=== PATIENT | female | born 1965 ===

== ENCOUNTER 2020-06-03 13:09 | Outpatient (REF) | payer MEDICAID, SELFPAY | END 2020-06-03 13:10 | disposition home or self-care (01) | LOC: HO.LAB 13:09 | PROVIDERS: Visit Provider Internal Medicine | DX: Z20.822 Contact with and (suspected) exposure to COVID-19 (principal) | CPT/HCPCS: 36415; C9803; U0003 ==

== ENCOUNTER 2020-06-09 21:12 | Emergency (ER) | payer MEDICAID, SELFPAY | END 2020-06-09 21:27 | disposition left against medical advice (07) | LOC: HO.ED 21:26 | PROVIDERS: Emergency Provider Emergency Medicine | DX: Z20.822 Contact with and (suspected) exposure to COVID-19 (principal) ==

== ENCOUNTER 2020-06-14 18:02 | Emergency (ER) | payer MEDICAID, SELFPAY ==
[2020-06-14 18:30] VITALS: BP 184/109; PULSE 75; RESP 18; TEMP 36.6; O2SAT 97; BMI 22.4
--- NOTE | 2020-06-14 19:55 | XR_ITS ---
EXAMINATION: XR CHEST CLINICAL INFORMATION: Chest pain COMPARISON: None TECHNIQUE: Frontal view of the chest was obtained. FINDINGS: The lungs are well-expanded and clear of acute pneumonic process. The heart size and pulmonary vascularity is normal. There is mild spondylosis of dorsal spine with mild dextroscoliosis. No lytic process seen XR/XR chest 1V IMPRESSION: Unremarkable chest exam.
--- NOTE | 2020-06-14 19:55 | ECG_ITS ---
Test Reason : CP Blood Pressure : / mmHG Vent. Rate : 073 BPM Atrial Rate : 073 BPM P-R Int : 154 ms QRS Dur : 078 ms QT Int : 394 ms P-R-T Axes : 048 005 031 degrees QTc Int : 434 ms Normal sinus rhythm Nonspecific T wave abnormality Abnormal ECG When compared with ECG of 07-MAY-2015 01:14, Nonspecific T wave abnormality now evident in Anterior leads Referred By: Generic ED Physician Electronically Signed By:Lenny Mcfarland
--- NOTE | 2020-06-14 20:05 | PC.NURSE ---
Addendum entered by Tiffanie Barriga 06/14/20 20:07: IV established by ZOE Zapata. Original Note: Pt sitting upright in bed, ambulating to the bathroom to provide urine sample. IV established, EKG, labs, urine obtained and sent. VSS. Awaiting primary MD trevino.
[2020-06-14 20:08] LABS: MANUAL DIFF FLAG NO
[2020-06-14 20:10] LABS: Basophils Percent Auto 0.3 % (0-2); Eosinophils Absolute Auto 0.3 X10*3/uL (0.0-0.4); Hematocrit 37.9 % (37-47); Hemoglobin 12.4 g/dl (12.0-16.0); Imm Gran Abs Auto 0.03 X10*3/uL (0.00-0.03); Imm Gran Pct Auto 0.2 % (0.0-0.4); Lymphocytes Absolute Auto 4.2 X10*3/uL (1.2-4.9); Mean Corpuscular HGB Conc 32.7 g/dl (31.0-35.0); Mean Corpuscular Hemoglobin 24.5 pg (27.0-33.0); Mean Corpuscular Volume 74.8 fL (80-98); Mean Platelet Volume 10.1 fL (9.4-12.3); Monocytes Percent Auto 7.3 % (2-11); Neutrophils Absolute Auto 8.4 X10*3/uL (2.0-8.3); Neutrophils Percent Auto 60.2 % (45-73); Platelet Count 404 X10*3/uL (160-400); Red Blood Count 5.07 X10*6/uL (4.20-5.50)
[2020-06-14 20:11] LABS: Glucose Urine UA >=1000 MG/DL (NEG); Leukocyte Esterase Urine NEG (NEG); Nitrite Urine NEG (NEG); Specific Gravity - Urine <= 1.005 (1.005-1.025); Urine Blood NEG (NEG); Urine Ketones NEG (NEG); Urine Protein NEG (NEG-TRACE)
[2020-06-14 20:12] LABS: Appearance Urine CLEAR; Color Urine STRAW
[2020-06-14 20:21] LABS: RBC Urine 0 /HPF (0); Squamous Epithelial Cell Urine TRACE /LPF; WBC Urine 0 /HPF (0-4)
--- NOTE | 2020-06-14 20:21 | PC.NURSE ---
at bedside, awaiting hematologist oncologist for primary eval.
--- NOTE | 2020-06-14 20:38 | ED_ITS ---
HPI - General Adult General Chief complaint: General Medical Stated complaint: ANXIETY Time Seen by Provider: 06/14/20 20:06 Source: patient Mode of arrival: ambulatory Limitations: language barrier (Patient speaks Ukrainian, educational interpreter used to obtain information) History of Present Illness HPI narrative: 54-year-old female who presents emergency department for evaluation of multiple complaints. The patient states that she saw her doctor approximately 1 week prior and was told that her glucose was slightly high and she was started on Jardiance. She states that shortly after taking her 1st dose she started to feel ill. She states that her whole body felt cold. She states that she broke out into sweats and then felt very hot. She developed intermittent chest pain in her left anterior chest which lasted seconds. She states that she has been getting this chest pain frequently but has difficulty characterizing how often she is getting the pain. She states she has had mild shortness of breath. She denied cough. She denied nausea, vomiting, diarrhea or body aches. She states that she has been tested for COVID-19 times with her in last negative test pain 06/03/2020. She is not aware of any primary exposures. Related Data Allergies Allergy/AdvReac Type Severity Reaction Status Date / Time diphenhydramine Allergy Unknown PALPATATION Unverified 02/06/20 15:54 [From BENADRYL] S Benadryl Allergy Unknown palpitation Uncoded 12/11/18 00:00 Review of Systems Review of Systems: Yes all other systems are reviewed and are negative Neurologic: Reports Abnormal speech present ON LICENSE OF [facility] Past Medical History ON LICENSE OF [facility] Narrative: The patient denies tobacco, alcohol or drug use. Medical History Diabetes HLD (hyperlipidemia) HTN (hypertension) Surgical History Hx of cholecystectomy Social History Social History Advance Directives: No Advance Directives Information Provided: No Physical Exam Vital Signs: Vital Signs: Last Vital Signs Temp 98.5 F 06/14/20: Pulse 71 06/14/20: Resp 18 06/14/20 21: BP 128/78 06/14/20 21:27 Pulse Ox 98 06/14/20 21:27 Body Mass Index 22.4 Const: General: cooperative and healthy appearing Orientation/consciousness: oriented to person and oriented to place Limitations: no limitations HENMT: Head: Yes normal to inspection, Yes normocephalic and Yes atraumatic Ears: external ears normal General nose exam: Normal external nose present Face and sinus: Yes normal facial exam Mouth: Normal oral and palatal mucosa present Throat: Yes posterior oropharynx normal Eyes: Periorbital: periorbital findings normal Eyelids: Yes eyelids normal Conjunctivae: conjunctivae normal Sclerae: sclerae normal Corneas: corneas normal Pupils: Equal, round and reactive pupils present Direct Ophthalmoscopy: normal light reflex Neck: Neck: Yes full ROM, Yes no lymphadenopathy, Yes no meningeal signs, Yes trachea midline and Yes supple Chest: Chest palpation & inspection: normal inspection of the chest and normal palpation of entire chest wall Resp: Effort & Inspection: normal respiratory effort and able to speak in complete sentences Auscultation: clear to auscultation bilaterally Cardio: Rate: regular rate Rhythm: regular rhythm Heart sounds: S1 normal heart sound present, S2 normal heart sound present and no murmurs GI: Inspection: Yes normal to inspection Palpation (GI): Soft to palpation, nontender, no guarding, not rigid and No hepatosplenomegaly present : General: Yes no CVA tenderness Back/Spine/Pelvis: Back: no CVA tenderness Cervical Spine: normal cervical lordosis Thoracic/Lumbar Spine: thoracic and lumbar spine normal to inspec tion Skin: Lesions: no lesions Rashes: no rashes Wounds: no wounds Neuro: General: oriented to person, oriented to place and no meningeal signs Cranial nerves: Yes Equal, round and reactive pupils present Cognition (Neuro): normal cognition Speech: Abnormal speech present Motor exam (neuro): 5/5 motor strength present throughout Extrem: General: Yes normal to inspection and Yes full ROM Psych: Appearance: well kempt Mental Status: mental status grossly normal Speech and movement: Normal speech and movement present Affect: normal affect Attitude: cooperative Thought process: Normal thought process present Thought content: Normal thought content present Course Course Course Narrative: 54-year-old female with a history of diabetes who was recently started on Jardiance 1 week prior and shortly after taking the medication this developed multiple symptoms including chest pain, sweats, feeling hot and cold, and mild shortness of breath. The patient's physical examination did reveal elevated blood pressure of 184/109 but otherwise was unremarkable. Patient's 12 EKG revealed no evidence for ischemia or cardiac injury, she did had nonspecific T[place]. [place] [address], elevated glucose of 184, slight elevation of the lipase is 88, positive for glucose of was unremarkable. The patient's COVID-19 was negative. At this time, I do not have a clear etiology for patient's symptoms. It is possible that she may have a viral illness versus adverse reaction to the Jardiance. I did discuss this with her told her that she should contact her PCP on Monday morning to discuss her symptoms and the possibility of discontinuing the Jardiance. Medical Decision Making Lab Data Result diagrams: 06/14/20 20:06/14/20 20:01 Labs: Lab Results 06/14/20 06/14/20 06/14/20 Range/Units 20:01 20:01 20:01 WBC 14.0 H (4.8-10.8) X10*3/uL RBC 5.07 (4.20-5.50) X10*6/uL Hgb 12.4 (12.0-16.0) g/dl Hct 37.9 (37-47) % MCV 74.8 L (80-98) fL MCH 24.5 L (27.0-33.0) pg MCHC 32.7 (31.0-35.0) g/dl RDW 14.0 (11.0-16.0) % Plt Count 404 H (160-400) X10*3/uL MPV 10.1 (9.4-12.3) fL Immature Gran % (Auto) 0.2 (0.0-0.4) % Neut % (Auto) 60.2 (45-73) % Lymph % (Auto) 30.0 (20-40) % [place] % (Auto) 7.3 (2-11) % Eos % (Auto) 2.0 (0-4) % Baso % (Auto) 0.3 (0-2) % Lymph # (Auto) 4.2 (1.2-4.9) X10*3/uL [place] # (Auto) 1.0 (0.1-1.2) X10*3/uL Eos # (Auto) 0.3 (0.0-0.4) X10*3/uL Baso # (Auto) 0.0 (0.0-0.2) X10*3/uL Abs Immat Gran (auto) 0.03 (0.00-0.03) X10*3/uL Absolute Neuts (auto) 8.4 H (2.0-8.3) X10*3/uL Absolute Nucleated RBC 0.000 (0.0-0.012) X10*3/uL Nucleated RBC % (auto) 0.0 (0.0-0.2) /100WBC Hold Blue Top SEE NOTE Sodium 139 (135-145) mmol/L Potassium 3.7 (3.3-5.1) mmol/l Chloride 99 (96-108) mmol/L Carbon Dioxide 30 H (22-29) mmol/L Anion Gap 14 (12-20) BUN 13 (9-16) mg/dL Creatinine 0.77 (0.5-1.4) mg/dL Estim Creat Clear Calc 71.2 Estimated GFR > 60 POC Glucose (60-115) mg/dL Random Glucose 184 H (60-115) mg/dL Calcium 10.0 (8.4-10.2) mg/dL Total Bilirubin 0.3 (0.0-1.0) mg/dL Direct Bilirubin < 0.2 (0.0-0.5) mg/dL AST 15 (5-31) U/L ALT 13 (0-31) U/L Alkaline Phosphatase 88 (39-117) U/L Troponin I High Sens (<3.5-17.0) ng/L Total Protein 7.3 (6.5-8.0) g/dL Albumin 4.3 (3.5-5.0) g/dL Lipase 88 H (8-78) U/L Urine Color Urine Appearance Urine pH (5.0-8.0) Ur Specific [place] (1.005-1.025) Urine Protein (NEG-TRACE) MG/DL Urine Glucose (UA) (NEG) MG/DL Urine Ketones (NEG) MG/DL Urine Blood (NEG) Urine Nitrite (NEG) Ur Leukocyte Esterase (NEG) Urine RBC (0) /HPF Urine WBC (0-4) /HPF Ur Squamous Epith Cells /LPF Urine Bacteria /LPF COVID-19 ([facility]) (Negative) COVID-19 Clin Com 06/14/20 06/14/20 06/14/20 Range/Units 20:01 20:01 21:18 WBC (4.8-10.8) X10*3/uL RBC (4.20-5.50) X10*6/uL Hgb (12.0-16.0) g/dl Hct (37-47) % MCV (80-98) fL MCH (27.0-33.0) pg MCHC (31.0-35.0) g/dl RDW (11.0-16.0) % Plt Count (160-400) X10*3/uL MPV (9.4-12.3) fL Immature Gran % (Auto) (0.0-0.4) % Neut % (Auto) (45-73) % Lymph % (Auto) (20-40) % [place] % (Auto) (2-11) % Eos % (Auto) (0-4) % Baso % (Auto) (0-2) % Lymph # (Auto) (1.2-4.9) X10*3/uL [place] # (Auto) (0.1-1.2) X10*3/uL Eos # (Auto) (0.0-0.4) X10*3/uL Baso # (Auto) (0.0-0.2) X10*3/uL Abs Immat Gran (auto) (0.00-0.03) X10*3/uL Absolute Neuts (auto) (2.0-8.3) X10*3/uL Absolute Nucleated RBC (0.0-0.012) X10*3/uL Nucleated RBC % (auto) (0.0-0.2) /100WBC Hold Blue Top Sodium (135-145) mmol/L Potassium (3.3-5.1) mmol/l Chloride (96-108) mmol/L Carbon Dioxide (22-29) mmol/L Anion Gap (12-20) BUN (9-16) mg/dL Creatinine (0.5-1.4) mg/dL Estim Creat Clear Calc Estimated GFR POC Glucose (60-115) mg/dL Random Glucose (60-115) mg/dL Calcium (8.4-10.2) mg/dL Total Bilirubin (0.0-1.0) mg/dL Direct Bilirubin (0.0-0.5) mg/dL AST (5-31) U/L ALT (0-31) U/L Alkaline Phosphatase (39-117) U/L Troponin I High Sens < 3.5 (<3.5-17.0) ng/L Total Protein (6.5-8.0) g/dL Albumin (3.5-5.0) g/dL Lipase (8-78) U/L Urine Color STRAW Urine Appearance CLEAR Urine pH 6.0 (5.0-8.0) Ur Specific [place] <= 1.005 (1.005-1.025) Urine Protein NEG (NEG-TRACE) MG/DL Urine Glucose (UA) >=1000 H (NEG) MG/DL Urine Ketones NEG (NEG) MG/DL Urine Blood NEG (NEG) Urine Nitrite NEG (NEG) Ur Leukocyte Esterase NEG (NEG) Urine RBC 0 (0) /HPF Urine WBC 0 (0-4) /HPF Ur Squamous Epith Cells TRACE /LPF Urine Bacteria NONE /LPF COVID-19 ([facility]) Negative (Negative) COVID-19 Clin Com See Note 06/14/20 Range/Units 21:30 WBC (4.8-10.8) X10*3/uL RBC (4.20-5.50) X10*6/uL Hgb (12.0-16.0) g/dl Hct (37-47) % MCV (80-98) fL MCH (27.0-33.0) pg MCHC (31.0-35.0) g/dl RDW (11.0-16.0) % Plt Count (160-400) X10*3/uL MPV (9.4-12.3) fL Immature Gran % (Auto) (0.0-0.4) % Neut % (Auto) (45-73) % Lymph % (Auto) (20-40) % [place] % (Auto) (2-11) % Eos % (Auto) (0-4) % Baso % (Auto) (0-2) % Lymph # (Auto) (1.2-4.9) X10*3/uL [place] # (Auto) (0.1-1.2) X10*3/uL Eos # (Auto) (0.0-0.4) X10*3/uL Baso # (Auto) (0.0-0.2) X10*3/uL Abs Immat Gran (auto) (0.00-0.03) X10*3/uL Absolute Neuts (auto) (2.0-8.3) X10*3/uL Absolute Nucleated RBC (0.0-0.012) X10*3/uL Nucleated RBC % (auto) (0.0-0.2) /100WBC Hold Blue Top Sodium (135-145) mmol/L Potassium (3.3-5.1) mmol/l Chloride (96-108) mmol/L Carbon Dioxide (22-29) mmol/L Anion Gap (12-20) BUN (9-16) mg/dL Creatinine (0.5-1.4) mg/dL Estim Creat Clear Calc Estimated GFR POC Glucose 160 H (60-115) mg/dL Random Glucose (60-115) mg/dL Calcium (8.4-10.2) mg/dL Total Bilirubin (0.0-1.0) mg/dL Direct Bilirubin (0.0-0.5) mg/dL AST (5-31) U/L ALT (0-31) U/L Alkaline Phosphatase (39-117) U/L Troponin I High Sens (<3.5-17.0) ng/L Total Protein (6.5-8.0) g/dL Albumin (3.5-5.0) g/dL Lipase (8-78) U/L Urine Color Urine Appearance Urine pH (5.0-8.0) Ur Specific [place] (1.005-1.025) Urine Protein (NEG-TRACE) MG/DL Urine Glucose (UA) (NEG) MG/DL Urine Ketones (NEG) MG/DL Urine Blood (NEG) Urine Nitrite (NEG) Ur Leukocyte Esterase (NEG) Urine RBC (0) /HPF Urine WBC (0-4) /HPF Ur Squamous Epith Cells /LPF Urine Bacteria /LPF COVID-19 ([facility]) (Negative) COVID-19 Clin Com ECG Data Attestation: I personally reviewed and interpreted this ECG as follows: Interpretation: 1957: Normal sinus rhythm with a rate of 73, normal OK, QRS and QTC intervals, nonspecific flattened T-waves, no ST segment elevation, no ST segment depression, no old EKG for comparison. This is an abnormal EKG. Discharge Plan Discharge Clinical Impression: Abnormal flushing and sweating Chest pain Qualifiers: Chest pain type: unspecified Qualified Code(s): R07.9 - Chest pain, unspecified Patient Disposition: Home, Self-Care Instructions: Chest Pain (ED) Additional Instructions: Your laboratory evaluation was unremarkable. EKG was unremarkable. Your COVID-19 test was negative. At this time, I do not have a clear cause for your symptoms. It is possible that he may have a viral infection. It is also possible that your symptoms may be caused by the new medication, Jardiance therefore you should stop this medication and discussed alternative medications with your doctor. Take ibuprofen 200 mg pills, 2 pills every 6 hours as needed for pain or fever. Take Tylenol (acetaminophen) 500 mg pills, 2 pills every 4 to 6 hours as needed for pain or fever. Follow-up with your doctor in 2 days. Please return to the emergency department if your symptoms get worse or if you develop any symptoms that are concerning to you.
[2020-06-14 20:47] LABS: Alanine Aminotransferase 13 U/L (0-31); Albumin Level 4.3 g/dL (3.5-5.0); Alkaline Phosphatase 88 U/L (39-117); Anion Gap 14 (12-20); Aspartate Amino Transferase 15 U/L (5-31); Bilirubin Direct < 0.2 mg/dL (0.0-0.5); Bilirubin Total 0.3 mg/dL (0.0-1.0); Blood Urea Nitrogen 13 mg/dL (9-16); Carbon Dioxide 30 mmol/L (22-29); Chloride 99 mmol/L (96-108); Creatinine Clr Calc Pharmacy 71.2; Estimated Glomerular Filt Rate > 60; Glucose Random 184 mg/dL (60-115); Potassium 3.7 mmol/l (3.3-5.1); Sodium 139 mmol/L (135-145); Total Protein 7.3 g/dL (6.5-8.0)
[2020-06-14 20:51] LABS: Troponin-I High Sensitivity < 3.5 ng/L (<3.5-17.0)
[2020-06-14 21:06] LABS: Lipase 88 U/L (8-78)
--- NOTE | 2020-06-14 21:19 | PC.NURSE ---
Covid swab obtained and sent. Pt holding a container of pills, this RN contacting iv technician for assistance, unknown if meds are PM meds. Awaiting iv technician.
[2020-06-14 21:27] VITALS: BP 128/78; PULSE 71; RESP 18; TEMP 36.9; O2SAT 98
[2020-06-14 21:33] LABS: Glucose, Whole Blood 160 mg/dL (60-115)
--- NOTE | 2020-06-14 21:36 | PC.NURSE ---
Pt states that her medications are for her diabetes. POC 160 mg/dl. MD aware, per MD, okay to take medications. Plan to DC home once Covid results are back.
[2020-06-14 21:43] LABS: COVID-19 Test Negative (Negative); IDNOW Serial# 9DD0AD1C
--- NOTE | 2020-06-14 22:08 | PC.NURSE ---
MD at bedside with brand protection manager discussing results and plan to DC home.
== END 2020-06-14 22:46 | disposition home or self-care (01) ==
PROVIDERS: Emergency Provider Emergency Medicine Emergency Medical Services
DX: F41.1 Generalized anxiety disorder (principal); R07.9 Chest pain, unspecified; Z20.822 Contact with and (suspected) exposure to COVID-19
CPT/HCPCS: 36415; 71045; 80048; 80076; 81001; 82947; 83690; 84484; 85025; 87635; 93005; 99283; 99284

== ENCOUNTER 2020-07-22 10:43 | Outpatient (REF) | payer MEDICAID, SELFPAY ==
--- NOTE | ~2020-07-22 | MM_ITS ---
EXAMINATION: MM DIAGNOSTIC DIGITAL BREAST TOMOSYNTHESIS, BILATERAL US DIAGNOSTIC ULTRASOUND BREAST, LEFT CLINICAL INFORMATION: At time of screening mammography, patient complains of significant left breast pain for maxilla along lateral to inferior breasts. No focal palpable mass. No discharge. Family history breast cancer, paternal aunt. The lifetime risk of breast cancer based on the Tyrer-Cuzick Model is 9%. COMPARISON: Mammography: 12/31/2018, 12/29/2017, 08/18/2016, 06/27/2015 TECHNIQUE: Digital breast tomosynthesis is performed in both the craniocaudal and mediolateral oblique views along with computer-aided detection (CAD). Synthesized 2D images are generated from the tomosynthesis. Additional left CC and MLO views are obtained with BB placed over nodule noted on ultrasound. Ultrasound left breast is targeted to the areas of clinical concern upper outer and lower outer breast. Grayscale imaging and color Doppler are performed without and with harmonics. FINDINGS: The breasts are heterogeneously dense, which may obscure small masses (ACR BI-RADS breast composition Category c). There is fibronodular parenchymal pattern similar to prior studies with variable nodularity. Dominant circumscribed nodule mid upper outer left breast is stable from prior exams measuring under 1.5 cm. There is no developing density. No architectural abnormality. No abnormal calcifications. The axilla and skin contours are unremarkable. There is no skin thickening or coarsening of the Shaun's ligaments. Ultrasound left breast demonstrates no skin thickening or edema tracking in soft tissue planes. There is no abscess or focal duct ectasia. There is a oval solid mass upper outer quadrant corresponding to the chronic nodule on mammography measuring approximately 1.4 x 0.7 cm. Given the chronicity, this is considered benign, likely fibroadenoma. Results are discussed with the patient at time of visit, using an structural iron erector. MM/MM tomosynthesis diagnostic BI IMPRESSION: 1. No mammographic evidence of malignancy or focal inflammatory changes. 2. Chronic nodule upper outer left breast just under 1.5 cm similar to prior exams, considered benign, possibly fibroadenoma on ultrasound. ASSESSMENT: BI-RADS 2: Benign RECOMMENDATION: 1. Patient's left breast pain should be managed based on the clinical impression. 2. Otherwise, routine annual screening mammography. This patient's information was entered into a reminder system with a target due date for their next mammogram.
== END 2020-07-22 10:44 | disposition home or self-care (01) ==
LOC: HO.MAMMO 10:43
PROVIDERS: PCP Internal Medicine Geriatric Medicine; Visit Provider Internal Medicine Geriatric Medicine
DX: N64.4 Mastodynia (principal); Z80.3 Family history of malignant neoplasm of breast
CPT/HCPCS: 76642; 77062; 77066

== ENCOUNTER 2020-08-31 10:06 | Outpatient (REF) | payer MEDICAID, SELFPAY ==
[2020-08-31 10:56] LABS: COVID-19 Test Negative (Negative)
== END 2020-08-31 10:07 | disposition home or self-care (01) ==
LOC: HO.LAB 10:06
PROVIDERS: Visit Provider Internal Medicine
DX: Z20.822 Contact with and (suspected) exposure to COVID-19 (principal)
CPT/HCPCS: 36415; 87635; C9803

== ENCOUNTER 2020-11-04 15:43 | Outpatient (REF) | payer MEDICAID, SELFPAY ==
--- NOTE | ~2020-11-04 | CT_ITS ---
EXAMINATION: CT HEAD WITHOUT CONTRAST CLINICAL INFORMATION: Anesthesia of the skin COMPARISON: None TECHNIQUE: Contiguous axial imaging was performed from the skull base to vertex without intravenous administration of contrast. This CT examination was performed using dose optimization techniques as appropriate, variously including the following: *Automated exposure control *Adjustment of mA and/or kV according to patient size (this includes techniques or standardized protocols for targeted exams where dose is matched to indication/reason for exam; i.e. extremities or head) *Use of iterative reconstruction technique DLP: 640 mGy-cm FINDINGS: There is no evidence of acute intracranial hemorrhage or territorial infarction. No abnormal mass effect or midline shift is seen. Hdez to white matter differentiation is well preserved. No extra-axial fluid collections are identified. The ventricles are normal in size. There is no abnormal attenuation within the brain parenchyma. The osseous structures and soft tissues are normal. The mastoid air cells and visualized portions of the paranasal sinuses are well aerated. CT/CT head/brain wo con IMPRESSION: No acute intracranial process seen.
== END 2020-11-04 15:44 | disposition home or self-care (01) ==
LOC: HO.CT 15:43
PROVIDERS: Visit Provider Internal Medicine Geriatric Medicine
DX: R20.0 Anesthesia of skin (principal); R20.2 Paresthesia of skin
CPT/HCPCS: 70450

== ENCOUNTER 2020-11-20 12:01 | Emergency (ER) | payer MEDICAID, SELFPAY ==
--- NOTE | 2020-11-20 | ECG_ITS ---
Test Reason : CP Blood Pressure : / mmHG Vent. Rate : 072 BPM Atrial Rate : 072 BPM P-R Int : 144 ms QRS Dur : 078 ms QT Int : 402 ms P-R-T Axes : 043 002 054 degrees QTc Int : 440 ms Normal sinus rhythm Normal ECG When compared with ECG of 14-JUN-2020 19:58, Nonspecific T wave abnormality no longer evident in Anterior leads Referred By: Generic ED Physician Electronically Signed By:GALLITO RODRÍGUEZ MD
[2020-11-20 12:13] VITALS: BP 173/69; PULSE 74; RESP 18; TEMP 36.2; O2SAT 98; BMI 24.5
[2020-11-20 13:19] LABS: MANUAL DIFF FLAG NO
[2020-11-20 13:21] LABS: Basophils Absolute Auto 0.1 X10*3/uL (0.0-0.2); Basophils Percent Auto 0.4 % (0-2); Eosinophils Absolute Auto 0.3 X10*3/uL (0.0-0.4); Eosinophils Percent Auto 2.4 % (0-4); Hematocrit 36.8 % (37-47); Imm Gran Abs Auto 0.03 X10*3/uL (0.00-0.03); Imm Gran Pct Auto 0.3 % (0.0-0.4); Lymphocytes Absolute Auto 2.4 X10*3/uL (1.2-4.9); Lymphocytes Percent Auto 20.6 % (20-40); Mean Corpuscular HGB Conc 32.6 g/dl (31.0-35.0); Mean Corpuscular Hemoglobin 24.5 pg (27.0-33.0); Mean Corpuscular Volume 75.1 fL (80-98); Mean Platelet Volume 9.4 fL (9.4-12.3); Monocytes Absolute Auto 0.7 X10*3/uL (0.1-1.2); Monocytes Percent Auto 6.1 % (2-11); Neutrophils Absolute Auto 8.3 X10*3/uL (2.0-8.3); Neutrophils Percent Auto 70.2 % (45-73); Platelet Count 418 X10*3/uL (160-400); Red Cell Distribution Width 13.7 % (11.0-16.0); White Blood Count 11.9 X10*3/uL (4.8-10.8)
--- NOTE | 2020-11-20 13:41 | ED.CHESTPAIN ---
HPI - Chest Pain General Chief Complaint: Chest Pain Stated Complaint: chest pain & tenderness, hbp Time Seen by Provider: 11/20/20 13:23 Source: patient Mode of arrival: ambulatory Limitations: no limitations History of Present Illness HPI narrative: 54 y/o female with history of HTN, DM who presents to the ER with elevated blood pressure and left sided chest pain that started this morning. She reports compliance with her home lisinopril 5 mg that she has been on for a very long time. Her blood pressure is usually in the 130-140 range per her report. She checked it this morning and it was elevated. She had some left sided and central chest pain and tenderness so she came to the ER for evaluation. She denies headache, vision changes. Chest pain does not radiate and it is worse with palpation of her chest wall. She also c/o acute on chronic neck pain. No SOB, difficulty breathing, diaphoresis or vomiting. On arrival BP 173/69. MD complaint: chest pain Onset (ago): hour(s) (8) Timing of current episode: constant Prior episodes: Yes Onset: during rest Pain location: left chest Pain radiation: none Severity: mild Pain scale (0-10): 4 Quality: aching Relieving factors: rest Exacerbating factors: palpation and movement Treatment prior to arrival: none Risk Factors Coronary artery disease risk factors: diabetes, hyperlipidemia and hypertension Thoracic aortic dissection risk factors: none Related Data On Oral Contraceptives: No Allergies Allergy/AdvReac Type Severity Reaction Status Date / Time diphenhydramine Allergy Unknown PALPATATION Unverified 02/06/20 15:54 [From BENADRYL] S Benadryl Allergy Unknown palpitation Uncoded 12/11/18 00:00 Review of Systems Review of Systems: Constitutional: No Fever, No Chills ENT/Mouth: No sore throat, No Rhinorrhea, No Swallowing Difficulty Eyes: No Eye Pain, No Swelling, No Redness Cardiovascular: + Chest Pain, No SOB, No Orthopnea, No Edema Respiratory: No Cough, No Sputum, No Wheezing, No dyspnea Gastrointestinal: No Nausea, No Vomiting, No Diarrhea, No abdominal Pain Genitourinary: No Dysuria, No Urinary Frequency, No Hematuria Musculoskeletal: + joint pain, + Myalgias Skin: No Skin Lesions, No rash Neuro: No Weakness, No Numbness, No Dizziness, No Headache Psych: + Anxiety/Panic, No Depression Heme/Lymph: No Bruising, No Lymphadenopathy Endocrine: No Polyuria, No Polydipsia PMFSH Past Medical History Medical History Diabetes HLD (hyperlipidemia) HTN (hypertension) Surgical History Hx of cholecystectomy Social History Social History Advance Directives: No Advance Directives Information Provided: No Physical Exam Vital Signs: Vital Signs: Last Vital Signs Temp 98.0 F 11/20/20 14:29 Pulse 68 11/20/20 14:29 Resp 16 11/20/20 14:29 BP 139/92 H 11/20/20 14:29 Pulse Ox 98 11/20/20 14:29 Body Mass Index 24.5 Appearance: Alert. Oriented X3. No acute distress. Eyes: Pupils equal, round and reactive to light. ENT: Pharynx normal. Neck: Normal inspection. Neck supple. CVS: Normal heart rate and rhythm. Pulses normal. Respiratory: No respiratory distress. Breath sounds normal. Left sided chest wall with tenderness, no deformity, no skin changes Abdomen: Soft and nontender. +BS x4 Skin: Skin warm and dry. Normal skin color. Normal skin turgor. No rashes. Extremities: No lower extremity edema. Neuro: Oriented X 3. No motor deficit. No sensory deficit. Course Course Course Narrative: 54 y/o female presenting with hypertension and left sided chest pain that started earlier this morning. Pain is reproducible on exam however she does have risk factors for CAD including HTN, HLD and DM. Will get EKG, troponin and reassess. Patient was reassured in the ER and her BP improved to the 140s systolic without intervention. Reevaluation(s) Reevaluation #1: Labs are unremarkable, including negative troponin. EKG is normal. BP currently 139/92. No meds provided. Hypertension and chest pain most likely related to anxiety. MDM - Chest Pain Medical Records Data Attestation: I reviewed the patient's medical records. Lab Data Attestation: I reviewed the patient's lab results. Result diagrams: 11/20/20 13:11 11/20/20 13:11 Labs: Lab Results 11/20/20 11/20/20 11/20/20 Range/Units 13:11 13:11 13:12 WBC 11.9 H (4.8-10.8) X10*3/uL RBC 4.90 (4.20-5.50) X10*6/uL Hgb 12.0 (12.0-16.0) g/dl Hct 36.8 L (37-47) % MCV 75.1 L (80-98) fL MCH 24.5 L (27.0-33.0) pg MCHC 32.6 (31.0-35.0) g/dl RDW 13.7 (11.0-16.0) % Plt Count 418 H (160-400) X10*3/uL MPV 9.4 (9.4-12.3) fL Immature Gran % (Auto) 0.3 (0.0-0.4) % Neut % (Auto) 70.2 (45-73) % Lymph % (Auto) 20.6 (20-40) % [place] % (Auto) 6.1 (2-11) % Eos % (Auto) 2.4 (0-4) % Baso % (Auto) 0.4 (0-2) % Lymph # (Auto) 2.4 (1.2-4.9) X10*3/uL [place] # (Auto) 0.7 (0.1-1.2) X10*3/uL Eos # (Auto) 0.3 (0.0-0.4) X10*3/uL Baso # (Auto) 0.1 (0.0-0.2) X10*3/uL Abs Immat Gran (auto) 0.03 (0.00-0.03) X10*3/uL Absolute Neuts (auto) 8.3 (2.0-8.3) X10*3/uL Absolute Nucleated RBC 0.000 (0.0-0.012) X10*3/uL Nucleated RBC % (auto) 0.0 (0.0-0.2) /100WBC Sodium 142 (135-145) mmol/L Potassium 3.8 (3.3-5.1) mmol/L Chloride 105 (96-108) mmol/L Carbon Dioxide 26 (22-29) mmol/L Anion Gap 15 (12-20) BUN 9 (9-16) mg/dL Creatinine 0.77 (0.5-1.4) mg/dL Estim Creat Clear Calc 70.8 Estimated GFR > 60 Random Glucose 134 H (60-115) mg/dL Calcium 10.7 H D (8.4-10.2) mg/dL Troponin I High Sens < 3.5 (<3.5-17.0) ng/L Urine Color Urine Appearance Urine pH (5.0-8.0) Ur Specific [place] (1.005-1.025) Urine Protein (NEG-TRACE) MG/DL Urine Glucose (UA) (NEG) MG/DL Urine Ketones (NEG) MG/DL Urine Blood (NEG) Urine Nitrite (NEG) Ur Leukocyte Esterase (NEG) 11/20/20 Range/Units 14:14 WBC (4.8-10.8) X10*3/uL RBC (4.20-5.50) X10*6/uL Hgb (12.0-16.0) g/dl Hct (37-47) % MCV (80-98) fL MCH (27.0-33.0) pg MCHC (31.0-35.0) g/dl RDW (11.0-16.0) % Plt Count (160-400) X10*3/uL MPV (9.4-12.3) fL Immature Gran % (Auto) (0.0-0.4) % Neut % (Auto) (45-73) % Lymph % (Auto) (20-40) % [place] % (Auto) (2-11) % Eos % (Auto) (0-4) % Baso % (Auto) (0-2) % Lymph # (Auto) (1.2-4.9) X10*3/uL [place] # (Auto) (0.1-1.2) X10*3/uL Eos # (Auto) (0.0-0.4) X10*3/uL Baso # (Auto) (0.0-0.2) X10*3/uL Abs Immat Gran (auto) (0.00-0.03) X10*3/uL Absolute Neuts (auto) (2.0-8.3) X10*3/uL Absolute Nucleated RBC (0.0-0.012) X10*3/uL Nucleated RBC % (auto) (0.0-0.2) /100WBC Sodium (135-145) mmol/L Potassium (3.3-5.1) mmol/L Chloride (96-108) mmol/L Carbon Dioxide (22-29) mmol/L Anion Gap (12-20) BUN (9-16) mg/dL Creatinine (0.5-1.4) mg/dL Estim Creat Clear Calc Estimated GFR Random Glucose (60-115) mg/dL Calcium (8.4-10.2) mg/dL Troponin I High Sens (<3.5-17.0) ng/L Urine Color STRAW Urine Appearance HAZY Urine pH 6.5 (5.0-8.0) Ur Specific [place] <= 1.005 (1.005-1.025) Urine Protein NEG (NEG-TRACE) MG/DL Urine Glucose (UA) NEG (NEG) MG/DL Urine Ketones NEG (NEG) MG/DL Urine Blood NEG (NEG) Urine Nitrite NEG (NEG) Ur Leukocyte Esterase NEG (NEG) ECG Data ECG #1: Attestation: I personally reviewed and interpreted this ECG as follows: ECG interpretation date: 11/20/20 ECG interpretation time: 13:40 Prior ECG tracings: available for review Interpretation: normal sinus rhythm, HR 72 bpm, MD interval is normal, normal QTc, no ST segment elevations or depressions. Critical Care Time Critical Care Time Critical Care Time: No Discharge Plan Discharge Clinical Impression: Hypertension Qualifiers: Hypertension type: unspecified Qualified Code(s): I10 - Essential (primary) hypertension Patient Disposition: Home, Self-Care Instructions: DASH Eating Plan (ED), Hypertension and Diabetes (ED) Additional Instructions: Your lab workup and EKG today were normal. Recommend following up with your doctor next week. Continue monitoring your blood pressure once or twice per day and keeping a record for your doctor. They may want to increase your Lisinopril if the trend is elevated however there is no emergent need to do this right now If you develop new or worsening symptoms call 911 or come back to the ER for further evaluation. Ling an?lisis de laboratorio y ling electrocardiograma de hoy fueron normales. Recomiende hacer un seguimiento con ling m?dico la pr?xima semana. Contin?e controlando ling presi?n arterial jeannette o dos veces al d?a y lleve un registro para ling m?dico. Es posible que quieran aumentar ling lisinopril si la tendencia es elevada, sin embargo, no existe jeannette necesidad emergente de hacerlo ahora mismo. Si presenta s?ntomas nuevos o que empeoran, llame al 911 o regrese a la ciara de emergencias para jeannette evaluaci?n adicional. Referrals: Name,MD Weston [Primary Care Provider] - 3 days (follow up blood pressure)
[2020-11-20 13:51] LABS: Troponin-I High Sensitivity < 3.5 ng/L (<3.5-17.0)
[2020-11-20 13:54] LABS: Anion Gap 15 (12-20); Blood Urea Nitrogen 9 mg/dL (9-16); Carbon Dioxide 26 mmol/L (22-29); Chloride 105 mmol/L (96-108); Creatinine Clr Calc Pharmacy 70.8; Estimated Glomerular Filt Rate > 60; Glucose Random 134 mg/dL (60-115); Potassium 3.8 mmol/L (3.3-5.1); Sodium 142 mmol/L (135-145)
[2020-11-20 14:00] VITALS: BP 149/73; PULSE 72; RESP 16; O2SAT 99
[2020-11-20 14:02] LABS: Calcium 10.7 mg/dL (8.4-10.2)
[2020-11-20 14:25] LABS: Glucose Urine UA NEG (NEG); Leukocyte Esterase Urine NEG (NEG); Nitrite Urine NEG (NEG); PH 6.5 (5.0-8.0); Specific Gravity - Urine <= 1.005 (1.005-1.025); Urine Blood NEG (NEG); Urine Ketones NEG (NEG); Urine Protein NEG (NEG-TRACE)
[2020-11-20 14:27] LABS: Appearance Urine HAZY; Color Urine STRAW
[2020-11-20 14:29] VITALS: BP 139/92; PULSE 68; RESP 16; TEMP 36.7; O2SAT 98
[2020-11-20 14:35] LABS: Glucose, Whole Blood 90 mg/dL (60-115)
[2020-11-20 14:36] LABS: RBC Urine 0 /HPF (0); WBC Urine 0 /HPF (0-4)
== END 2020-11-20 14:55 | disposition home or self-care (01) ==
PROVIDERS: Physician Assistant; Emergency Provider Emergency Medicine Emergency Medical Services; PCP Internal Medicine Geriatric Medicine
DX: I10 Essential (primary) hypertension (principal); E11.9 Type 2 diabetes mellitus without complications; Z79.899 Other long term (current) drug therapy
CPT/HCPCS: 36415; 80048; 81001; 82947; 84484; 85025; 93005; 99284

== ENCOUNTER 2020-12-01 15:07 | Outpatient (REF) | payer MEDICAID, SELFPAY ==
[2020-12-02 14:05] LABS: CT PCR NOT DETECTED (Not Detect.); NG PCR NOT DETECTED (Not Detect.)
[2020-12-03 08:50] LABS: BV Int Neg Control Negative (Negative); BV Int Pos Control Positive (Positive)
== END 2020-12-01 15:08 | disposition home or self-care (01) ==
LOC: HO.LAB 15:07
PROVIDERS: PCP Internal Medicine Geriatric Medicine; Visit Provider Advanced Practice Midwife
DX: Z01.411 Encounter for gynecological examination (general) (routine) with abnormal findings (principal); Z11.3 Encounter for screening for infections with a predominantly sexual mode of transmission; N95.2 Postmenopausal atrophic vaginitis; N84.1 Polyp of cervix uteri; Z20.2 Contact with and (suspected) exposure to infections with a predominantly sexual mode of transmission
CPT/HCPCS: 87480; 87491; 87510; 87591; 87660; 99212

== ENCOUNTER 2020-12-02 11:25 | Outpatient (REF) | payer MEDICAID, SELFPAY | END 2020-12-02 11:26 | disposition home or self-care (01) | LOC: HO.LNP 11:25 | PROVIDERS: Visit Provider Advanced Practice Midwife | DX: Z13.89 Encounter for screening for other disorder (principal) ==

== ENCOUNTER → 2020-12-28 09:34 | Outpatient (REF) | payer MEDICAID, SELFPAY ==
--- NOTE | ~2020-12-28 | NM_ITS ---
EXERCISE MYOCARDIAL PERFUSION STUDY INDICATION: Chest pain, shortness of breath, assess for coronary disease and ischemia TECHNIQUE: The patient was brought in for an exercise perfusion study on 12/28/2020. Patient performed exercise as per Arsh protocol and was injected 25 mCi of sestamibi once target heart rate was achieved. Images were obtained using the SPECT gamma camera interlaced with the gating device. Images were obtained in supine position. Resting perfusion study was performed on 12/29/2020. Patient was administered 25 mCi of sestamibi intravenously at rest. Images were then obtained in supine position. Total DLP 104mGy-cm. Images were processed with the software and compared side to side in short axis, horizontal long axis and vertical long axis views. FINDINGS: Raw images were reviewed. The stress perfusion study showed no significant perfusion abnormality. Both uncorrected as well as CT attenuation corrected images were reviewed. The gated study shows normal LV systolic function with calculated LVEF of 55%. LV cavity is normal in size. The gated study shows normal wall thickening and contraction of segments. Resting study shows no significant perfusion abnormality. Gating at rest reveals normal wall motion with ejection fraction at 68%. The findings are consistent with no reversible or fixed perfusion abnormality. NM/NM jarvis perf SPECT rest & str IMPRESSION: 1. Myocardial perfusion imaging study shows normal myocardial perfusion. No evidence of any ischemia or infarction. 2. Gated LVEF is 55% during stress and 68% during rest. 3. Transient ischemic dilatation not present. EKG component of the test reported separately.
--- NOTE | 2020-12-28 09:30 | CA_ITS ---
Acquisition Time: 2020-12-28 10:01:21 Total Exercise Time: 00:06:45 Test Indications: CP, SOB Medications: SEE CHART Protocol: OH Max HR: 164 BPM 100% of Pred: 164 BPM Max BP: 146/080 mmHG Max Work Load: 8.1 METS Exercise stress test with exercise 6 min 45 sec of Oh protocol, without anginal symptoms, without arrythmia, with normotensive response to exercise, with artifact at peak exercise, without EKG changes meeting criteria for at 45 seconds of recovery, then with mild nonspecific ST/ T abnormality noted later in recovery, of unclear significance. Nuclear images pending. Test reviewed with Dr De Leon. Referred By: Hardeep Altamirano Overread By: MABEL AKERS
== END ==
LOC: HO.CARD 09:34
PROVIDERS: Visit Provider Internal Medicine Cardiovascular Disease
DX: R06.02 Shortness of breath (principal)
CPT/HCPCS: 78452; 93017; A9500

== ENCOUNTER → 2021-02-24 13:09 | Outpatient (BNVA) | payer MEDICAID, SELFPAY | PROVIDERS: PCP Internal Medicine Geriatric Medicine; Visit Provider Internal Medicine Pulmonary Disease | DX: R06.00 Dyspnea, unspecified (principal) | CPT/HCPCS: 99202 ==

== ENCOUNTER 2021-03-05 15:32 | Outpatient (REF) | payer MEDICAID, SELFPAY ==
--- NOTE | ~2021-03-05 | XR_ITS ---
EXAMINATION: XR RIBS, LEFT, chest PA view CLINICAL INFORMATION: Pleurodynia. COMPARISON: 06/14/2020 chest radiograph. TECHNIQUE: 3 views of the left ribs were obtained along with a PA view of the chest. A skin marker was placed over the lateral aspect of the inferior left ribs. FINDINGS: Lungs are clear. No consolidation, pneumothorax, or pleural effusion. The cardiomediastinal silhouette and pulmonary vasculature are normal. Osseous structures are unremarkable. Ribs are intact. No fractures are identified. XR/XR ribs LT min 3V w CXR1V IMPRESSION: Unremarkable examination.
== END 2021-03-05 15:33 | disposition home or self-care (01) ==
LOC: HO.XRAY 15:32
PROVIDERS: Absent Provider Internal Medicine Geriatric Medicine; PCP Internal Medicine Geriatric Medicine; Visit Provider Emergency Medicine
DX: R07.81 Pleurodynia (principal)
CPT/HCPCS: 71101

== ENCOUNTER 2021-04-19 13:05 | Outpatient (REF) | payer MEDICAID, SELFPAY ==
--- NOTE | 2021-04-19 17:41 | PFT_ITS ---
Forced vital capacity is slightly decreased. FEV1, AVY91-61, and MVV are normal. Total lung capacity and residual volume are slightly decreased. Diffusion capacity normal. The patient declined to have bronchodilator challenge. CONCLUSION: There is evidence of mild restrictive pulmonary disorder. No evidence of obstructive airway disorder. Clinical correlation recommended. MD NIA Scruggs/MARIE / [id number]
== END 2021-04-19 13:06 | disposition home or self-care (01) ==
LOC: HO.RESP 13:05
PROVIDERS: Visit Provider Internal Medicine Pulmonary Disease
DX: R06.00 Dyspnea, unspecified (principal)
CPT/HCPCS: 94010; 94727; 94729

== ENCOUNTER → 2021-06-17 11:01 | Outpatient (BNVA) | payer MEDICAID, SELFPAY | PROVIDERS: PCP Internal Medicine Geriatric Medicine; Visit Provider Internal Medicine Pulmonary Disease | DX: R06.00 Dyspnea, unspecified (principal) | CPT/HCPCS: 99212 ==

== ENCOUNTER 2021-07-08 09:24 | Outpatient (REF) | payer MEDICAID, SELFPAY ==
--- NOTE | ~2021-07-08 | XR_ITS ---
EXAMINATION: XR KNEE, RIGHT CLINICAL INFORMATION: Right knee pain COMPARISON: None TECHNIQUE: Four views of the right knee. FINDINGS: There is loss of medial and patellofemoral compartment joint space with periarticular spurring. There is significant periapical spurring in the patellofemoral compartment joint space with moderate suprapatellar joint effusion. No loose bodies or bony erosive changes seen. No acute fracture or dislocation seen. XR/XR knee RT 4V IMPRESSION: Mild early degenerative changes right knee.
== END 2021-07-08 09:25 | disposition home or self-care (01) ==
LOC: HO.XRAY 09:24
PROVIDERS: PCP Internal Medicine Geriatric Medicine; Visit Provider Internal Medicine Geriatric Medicine
DX: M25.561 Pain in right knee (principal)
CPT/HCPCS: 73564

== ENCOUNTER 2021-08-26 13:39 | Outpatient (REF) | payer MEDICAID, SELFPAY ==
--- NOTE | ~2021-08-26 | US_ITS ---
EXAMINATION: MM DIAGNOSTIC DIGITAL BREAST TOMOSYNTHESIS, BILATERAL US DIAGNOSTIC ULTRASOUND BREAST, LEFT CLINICAL INFORMATION: 55-year-old female with recent dermal changes left nipple, now resolved. No discharge or palpable mass. Due for yearly. No known family history breast cancer. The lifetime risk of breast cancer based on the Tyrer-Cuzick Model is 5%. COMPARISON: Mammography: 07/22/2020 and prior exams dating back to 12/30/2011. TECHNIQUE: Digital breast tomosynthesis is performed in both the craniocaudal and mediolateral oblique views along with computer-aided detection (CAD). Synthesized 2D images are generated from the tomosynthesis. Ultrasound left breast is targeted to the areola, subareolar, and circumferential periareolar region. Grayscale imaging and color Doppler are performed without and with harmonics. FINDINGS: The breasts are heterogeneously dense, which may obscure small masses (ACR BI-RADS breast composition Category c). There is fibronodular parenchymal pattern similar to prior exams. Mild dominant nodularity in the upper quadrants are stable. There is no developing density. There is no interval architectural abnormality. No abnormal calcifications. The axilla and skin contours are unremarkable. No significant changes. Ultrasound left breast demonstrates no cystic or solid mass, architectural abnormality, or focal duct ectasia. There are some incidental small uniform intradermal Bradford glands 11:00 through 5:00 periareolar which patient also confirms as a chronic finding. No skin erythema. Results are discussed with the patient at time of visit, using an aerial photograph interpreter. Patient confirms the nipple changes recently noted to have resolved without recurrence or persistence. US/US breast LT limited IMPRESSION: No significant changes from prior studies. No mammographic or ultrasound evidence of malignancy. ASSESSMENT: BI-RADS 2: Benign RECOMMENDATION: Routine annual mammography screening. This patient's information was entered into a reminder system with a target due date for their next mammogram.
== END 2021-08-26 13:40 | disposition home or self-care (01) ==
LOC: HO.MAMMO 13:39
PROVIDERS: Visit Provider Emergency Medicine
DX: N63.42 Unspecified lump in left breast, subareolar (principal)
CPT/HCPCS: 76642; 77062; 77066

== ENCOUNTER 2021-11-19 18:49 | Emergency (ER) | payer MEDICAID, SELFPAY ==
--- NOTE | ~2021-11-19 | XR_ITS ---
EXAMINATION: XR KNEE, RIGHT CLINICAL INFORMATION: Right knee pain. COMPARISON: Radiograph of the right knee dated from 07/08/2021. TECHNIQUE: Four views of the right knee. FINDINGS: No acute fractures or malalignment. Moderate tricompartmental degenerative osteoarthritis with joint space narrowing, subcortical sclerosis and marginal osteophytes. Again noted prominent osteophytes along the anterior surface of the distal femur and patella, on the lateral view. No erosions or chondrocalcinosis. No joint effusion. XR/XR knee RT 4V IMPRESSION: No fractures or malalignment. Moderate tricompartmental degenerative osteoarthritis.
[2021-11-19 18:58] VITALS: BP 158/73; PULSE 82; RESP 16; TEMP 36.4; O2SAT 97; BMI 23.9
--- NOTE | 2021-11-19 19:54 | ED_ITS ---
HPI - Extremity Injury (Lower) General Chief Complaint: Extremity Injury, Lower Stated Complaint: R knee pain Time Seen by Provider: 11/19/21 19:43 Source: patient and family Mode of arrival: ambulatory Limitations: no limitations History of Present Illness HPI Narrative: 55-year-old female with a history of sah-dbyfmvo-stddfqctu diabetes, Hypertension, hyperlipidemia here with reports of right knee pain for the last 3 weeks with no known injury or trauma. Patient tells me she was seen by her primary care doctor and told that she has inflammation her knee. It was recommended that she take Tylenol and use topical diclofenac for the pain. Patient reports continued pain. No redness, swelling, fevers, chills. Patient denies no associated calf pain, numbness Related Data Previous Rx's Medication Instructions Recorded naproxen 500 mg tablet 500 mg PO BID PRN pain #30 tabs 11/19/21 Allergies Allergy/AdvReac Type Severity Reaction Status Date / Time diphenhydramine Allergy Unknown PALPATATION Verified 11/19/21 19:01 [From BENADRYL] S Benadryl Allergy Unknown palpitation Uncoded 11/19/21 19:01 Review of Systems Review of Systems: Yes all other systems are reviewed and are negative Constitutional: Constitutional: Reports no additional constitutional complaints, Denies body ache(s), Denies chills, Denies fever(s), Denies headache(s) and Denies weakness Eyes: Eyes: Reports no additional eye complaints and Denies change in vision ENT: Reports system reviewed and no additional complaints, except as documented, Denies dizziness, Denies headache(s), Denies nasal congestion, Denies nasal discharge and Denies neck pain Cardiovascular: Cardiovascular: Reports no additional cardiovascular complaints, Denies chest pain, Denies leg edema and Denies dyspnea Respiratory: Respiratory: Reports no additional respiratory complaints, Denies cough and Denies dyspnea Gastrointestinal: Gastrointestinal: Reports no additional gastrointestinal complaints, Denies abdominal pain, Denies diarrhea, Denies nausea and Denies vomiting Genitourinary: Genitourinary: Reports no additional female genitourinary complaints and Denies urinary incontinence Musculoskeletal: Musculoskeletal: Reports no additional musculoskeletal complaints, Denies back pain, Reports arthralgias, Denies joint swelling, Denies limited range of motion, Denies neck pain, Denies numbness and Denies tingling Integumentary/Breasts: Skin/Breast: Reports system reviewed and no additional complaints, except as docu and Denies rash Neurologic: Reports system reviewed and no additional complaints, except as documented, Denies Abnormal speech present, Denies dizziness, Denies headache(s), Denies numbness, Denies tingling and Denies weakness PMFSH Past Medical History Attestation statement: The following information was validated with the patient. Source: old records reviewed and nursing notes reviewed Medical History Diabetes HLD (hyperlipidemia) HTN (hypertension) Surgical History Hx of cholecystectomy Social History Social History Alcohol intake: never Patient Tobacco Use Status: Never used Tobacco Advance Directives: No Advance Directives Information Provided: No Gender identity: Female Physical Exam Vital Signs: Vital Signs: Last Vital Signs Temp 97.6 F 11/19/21 18:58 Pulse 82 11/19/21 18:58 Resp 16 11/19/21 18:58 BP 158/73 H 11/19/21 18:58 Pulse Ox 97 11/19/21 18:58 O2 Del Method 11/19/21 18:58 BMI result Body Mass Index 23.9 Const: General: cooperative, healthy appearing, comfortable and no acute distress Orientation/consciousness: patient oriented x3 Limitations: no limitations HEENT: Head: Yes normal to inspection Ears: hearing grossly normal bilaterally General nose exam: Normal external nose present Face and sinus: Yes normal facial exam Mouth: Normal oral and palatal mucosa present Throat: Yes posterior oropharynx normal Eyes: General: appearance normal, both eyes and all related structures Pupils: Equal, round and reactive pupils present Neck: Neck: Yes normal visual inspection Chest: Chest palpation & inspection: normal inspection of the chest Resp: Effort & Inspection: normal respiratory effort Auscultation: clear to auscultation bilaterally Cardio: Rate: regular rate Rhythm: regular rhythm Peripheral pulses: Peripheral pulses 2+ throughout GI: Inspection: Yes normal to inspection Palpation (GI): Soft to palpation and nontender Auscultation: normal bowel sounds Back/Spine/Pelvis: Thoracic/Lumbar Spine: thoracic and lumbar spine normal to inspection Skin: General skin exam: no rashes or lesions noted Neuro: General: patient oriented x3, no focal motor deficits and normal sensation to monofilament Cranial nerves: Yes Equal, round and reactive pupils present Cognition (Neuro): normal cognition Speech: No Abnormal speech present Gait exam (Neuro): Normal gait present Motor exam (neuro): 5/5 motor strength present throughout Extrem: Other: there is tenderness to the right anterior knee. There is no swelling or warmth full range of motion. No ligamental Laxity. Palpable DP and PT pulses distally noted General: Yes normal to inspection Course Course Course Narrative: X-rays show degenerative changes secondary to arthritis. Recommend NSAID, f/u with orthopedics for persistent symptoms. Reviewed RICE. Reviewed worrisome signs/symptoms with patient and when to seek additional care. Comfortable with discharge home. MDM - Extremity Injury (Lower) MDM Narrative Medical decision making narrative: 55 yo female here with atraumatic right knee pain for 3 weeks despite APAP, diclofenac topical. Will obtain x-rays. Medical Records Attestation: I reviewed the patient's medical records. Lab Data Attestation: I reviewed the patient's lab results. Imaging Data knee xray: Attestation: I personally reviewed and interpreted this imaging study as follows: Radiologist's impression: [address] [address] XRay Report Signed Patient: Pepper Rothman MR#: [id number] : 1965 Acct:[id number] Age/Sex: 55 / F ADM Date: 11/19/21 Loc: HO.ED Attending Dr: Ordering Physician: Generic ED Physician Date of Service: 11/19/21 Procedure(s): XR knee RT 4V Accession Number(s): [id number] cc: Generic ED Physician~ EXAMINATION: XR KNEE, RIGHT? CLINICAL INFORMATION: Right knee pain.? COMPARISON: Radiograph of the right knee dated from 07/08/2021.? TECHNIQUE: Four views of the right knee. FINDINGS: No acute fractures or malalignment. Moderate tricompartmental degenerative osteoarthritis with joint space narrowing, subcortical sclerosis and marginal osteophytes. Again noted prominent osteophytes along the anterior surface of the distal femur and patella, on the lateral view. No erosions or chondrocalcinosis. No joint effusion.? XR/XR knee RT 4V IMPRESSION: No fractures or malalignment. ? Moderate tricompartmental degenerative osteoarthritis. ? Discharge Plan Discharge Clinical Impression: Osteoarthritis Patient Disposition: Home, Self-Care Instructions: Osteoarthritis (ED) Additional Instructions: heat to the area elevation follow-up with Orthopedics you can continue the Tylenol and diclofenac topical Prescriptions: New naproxen 500 mg tablet 500 mg PO BID PRN (Reason: pain) Qty: 30 0RF Referrals: [facility] [place] [facility] [Provider Group] - 2 weeks Interventions: ED Discharge Assessment Last Done: 11/19/21 20:17 Discharge Date/Time: 11/19/21 20:18
== END 2021-11-19 20:18 | disposition home or self-care (01) ==
PROVIDERS: Emergency Provider Emergency Medicine
DX: M17.11 Unilateral primary osteoarthritis, right knee (principal); Z79.899 Other long term (current) drug therapy
CPT/HCPCS: 73564; 99282; 99283

== ENCOUNTER 2022-01-12 07:46 | Outpatient (REF) | payer MEDICAID, SELFPAY | END 2022-01-12 07:47 | disposition home or self-care (01) | LOC: HO.HOSX 07:46 | PROVIDERS: Visit Provider Physician Assistant | DX: Z13.89 Encounter for screening for other disorder (principal) ==

== ENCOUNTER 2022-07-10 06:10 | Emergency (ER) | payer MEDICAID, SELFPAY ==
--- NOTE | 2022-07-10 | ECG_ITS ---
Test Reason : EPIGASTRIC PAIN Blood Pressure : / mmHG Vent. Rate : 104 BPM Atrial Rate : 104 BPM P-R Int : 156 ms QRS Dur : 076 ms QT Int : 344 ms P-R-T Axes : 060 013 091 degrees QTc Int : 452 ms Sinus tachycardia Nonspecific T wave abnormality Abnormal ECG When compared with ECG of 20-NOV-2020 13:06, Nonspecific T wave abnormality, worse in Inferior leads Nonspecific T wave abnormality, worse in Anterolateral leads Referred By: Generic ED Physician Electronically Signed By:Lenny Mcfarland
--- NOTE | ~2022-07-10 | CT_ITS ---
EXAMINATION: CT ABDOMEN AND PELVIS WITH CONTRAST CLINICAL INFORMATION: Abdominal pain COMPARISON: CT abdomen 08/17/2018 TECHNIQUE: Multidetector volumetric images were obtained from the superior aspect of the liver through the pubic symphysis following administration 85 mL of Omnipaque 350 intravenous contrast. Sagittal and coronal reformatted images were obtained on the technologist's workstation. Oral contrast: No This CT examination was performed using dose optimization techniques as appropriate, variously including the following: *Automated exposure *Adjustment of mA and/or kV according to patient size (this includes techniques or standardized protocols for targeted exams where dose is matched to indication/reason for exam; i.e. extremities or head) *Use of iterative reconstruction technique DLP: 528 mGy-cm FINDINGS: LUNG BASES: The visualized lung bases are unremarkable. LIVER, GALLBLADDER, AND BILIARY TREE: Right lobe measures 19.3 cm craniocaudal. No focal liver lesions. No biliary duct dilatation. Status postcholecystectomy. CBD measures 1 cm proximally, tapering distally. This probably is related to prior cholecystectomy. PANCREAS: Unremarkable. SPLEEN: Unremarkable. ADRENAL GLANDS: Unremarkable. KIDNEYS AND URETERS: Mild prominence of the right ureter. No definite radiopaque right ureteral calculi are seen. 2 mm nonobstructing calculus in the left renal lower pole calyx. No left-sided hydronephrosis. BLADDER: Unremarkable. GASTROINTESTINAL TRACT: Stomach is partially distended. Nonobstructive bowel gas pattern. No dilated small bowel loops is seen. Apparent wall prominence/thickening of the proximal small bowel loops. This may be related to lack of distention versus enteritis. The large colon is nondistended limiting evaluation for wall thickening. No pericolonic inflammatory changes seen. The appendix contains air, appears unremarkable without inflammatory changes. No free fluid. No free air. ABDOMINAL WALL: Small fat-containing umbilical hernia. LYMPH NODES: No lymphadenopathy seen. VASCULAR: No aortic aneurysmal dilatation. PELVIC VISCERA: Within normal limits for CT. OSSEOUS STRUCTURES: Multilevel mild spondylosis in the visualized spine. CT/CT abdomen pelvis w IV con IMPRESSION: 1. There is wall prominence/thickening of the proximal small bowel loops. This could be related to lack of distention versus enteritis. Clinically correlate. Follow-up CT for reassessment as clinically warranted. 2. Liver spans 19.3 cm craniocaudal. No focal liver lesions. 3. Status postcholecystectomy. CBD prominence probably related to cholecystectomy. Correlate with liver function tests. 4. Mild right ureteral dilatation/prominence. No radiopaque ureteral calculi seen. Fleischner guidelines were followed.
[2022-07-10 06:25] VITALS: BP 115/78; BP 137/84; PULSE 104; PULSE 107; RESP 16; TEMP 37.1; O2SAT 99; BMI 24.3
--- NOTE | 2022-07-10 07:06 | ED.ABDPAIN ---
HPI - Abdominal Pain General Chief Complaint: Abdominal Pain Stated Complaint: N/V Time Seen by Provider: 07/10/22 07:01 Source: patient and EMS Mode of arrival: EMS Limitations: no limitations History of Present Illness HPI narrative: This is a 56 years old presented to the ED with a chief complaint of abdominal pain localized in the epigastric area, nausea vomiting. The symptoms started about 10 hours ago. She has history of prior cholecystectomy. MD elicited complaint: abdominal pain Onset (ago): hour(s) (10) Pain Consistency: intermittent Location: epigastric Severity: mild Quality: cramping Radiation: none Exacerbating factors: nothing Relieving factors: nothing Associated symptoms: nausea and vomiting Related Data Patient : No Previous Rx's Medication Instructions Recorded naproxen 500 mg tablet 500 mg PO BID PRN pain #30 tabs 11/19/21 Allergies Allergy/AdvReac Type Severity Reaction Status Date / Time diphenhydramine Allergy Unknown PALPATATION Verified 11/19/21 19:01 [From BENADRYL] S Benadryl Allergy Unknown palpitation Uncoded 11/19/21 19:01 Review of Systems Constitutional: Reports no additional constitutional complaints Cardiovascular: Reports no additional cardiovascular complaints Gastrointestinal: Reports abdominal pain, Reports nausea and Reports vomiting PMFSH Past Medical History Medical History Diabetes HLD (hyperlipidemia) HTN (hypertension) Surgical History Hx of cholecystectomy Social History Social History Alcohol intake: never Patient Tobacco Use Status: Never used Tobacco Advance Directives: No Patient : No Gender identity: Female Physical Exam ED Vital Signs: Vital Signs - 24 hr 07/10/22 06:25 07/10/22 07:12 07/10/22 09:32 Temperature 98.8 F Pulse Rate 104 H 106 H 108 H Respiratory Rate 16 21 H 18 Blood Pressure 115/78 127/69 128/65 Pulse Oximetry 99 99 100 Oxygen Delivery Method Room Air Room Air Room Air 07/10/22 12:00 07/10/22 14:08 Temperature Pulse Rate 96 92 Respiratory Rate 16 18 Blood Pressure 138/70 127/67 Pulse Oximetry 98 97 Oxygen Delivery Method Room Air Room Air BMI result Body Mass Index 24.3 She looks well she is not toxic-appearing Const General: cooperative, comfortable, no acute distress, well developed, alert, awake and Physically active Nutritional Appearance: average body habitus Orientation/consciousness: patient oriented x3 HENMT Head: Yes normal to inspection General nose exam: Normal external nose present Face and sinus: Yes normal facial exam Throat: Yes posterior oropharynx normal Neck Neck: Yes normal visual inspection and Yes full ROM Chest Chest palpation & inspection: normal inspection of the chest Resp Effort & Inspection: normal respiratory effort Auscultation: clear to auscultation bilaterally Cardio Jugular venous distension: no JVD Rate: regular rate GI Inspection: Yes normal to inspection Palpation (GI): Soft to palpation, not firm, nontender and no guarding Auscultation: normal bowel sounds Skin General skin exam: no rashes or lesions noted Rashes: no rashes Neuro General: patient oriented x3 Cranial nerves: Yes CN's II-XII intact bilaterally Course Reevaluation(s) Reevaluation #1: I re-examined the patient at 15:34 , at this time she is feeling much better, her abdomen is soft nontender, she is eating and drinking, she wants to go home. Her initial white count was a18.3 K but is trending down to 13.9, CT scan abdomen and pelvis showed a possible enteritis. Patient feeling much better at this point will discharge her home with clear liquid diet and follow-up with the primary care doctor Time: 15:36 Medical Decision Making Medical Decision Making [facility] Narrative: Patient presented with abdominal pain we are going to get labs CT scan and reassess 3.37 PM she is feeling much better, white count downtrending, CT scan possible enteritis, tolerating fluids well no vomiting, the abdomen is soft and nontender at this point will discharge the patient home. Differential Diagnosis Differential Diagnoses: The differential diagnosis associated with the presentation includes Gastritis/peptic ulcer disease/colitis/diverticulitis Admission/Observation Consideration of admission/observation: Escalation of care including admission/observation considered Lab Data [facility] Lab Attestation statement: I reviewed the patient's lab results. 07/10/22 13:39 07/10/22 07:50 Labs: Lab Results 07/10/22 07/10/22 07/10/22 Range/Units 07:50 07:50 09:44 WBC 18.3 H (4.8-10.8) X10*3/uL RBC 4.80 (4.20-5.50) X10*6/uL Hgb 11.6 L (12.0-16.0) g/dl Hct 35.6 L (37.0-47.0) % MCV 74.2 L (80.0-98.0) fL MCH 24.2 L (27.0-33.0) pg MCHC 32.6 (31.0-35.0) g/dl RDW 13.8 (11.0-16.0) % Plt Count 398 (160-400) X10*3/uL MPV 9.7 (9.4-12.3) fL Immature Gran % (Auto) 0.5 H (0.0-0.4) % Neut % (Auto) 92.7 H (45-73) % Lymph % (Auto) 3.5 L (20-40) % [place] % (Auto) 2.6 (2-11) % Eos % (Auto) 0.4 (0-4) % Baso % (Auto) 0.3 (0-2) % Lymph # (Auto) 0.6 L (1.2-4.9) X10*3/uL [place] # (Auto) 0.5 (0.1-1.2) X10*3/uL Eos # (Auto) 0.1 (0.0-0.4) X10*3/uL Baso # (Auto) 0.1 (0.0-0.2) X10*3/uL Abs Immat Gran (auto) 0.10 H (0.00-0.03) X10*3/uL Absolute Neuts (auto) 16.9 H (2.0-8.3) x10*3/uL Absolute Nucleated RBC 0.000 (0.0-0.012) X10*3/uL Nucleated RBC % (auto) 0.0 (0.0-0.2) /100WBC Smear Tech's Comments VERIFIED Sodium 139 (135-145) mmol/L Potassium 4.0 (3.3-5.1) mmol/L Chloride 104 (96-108) mmol/L Carbon Dioxide 24 (22-29) mmol/L Anion Gap 15 (12-20) BUN 17 H (9-16) mg/dL Creatinine 0.79 (0.5-1.4) mg/dL Estim Creat Clear Calc 67.2 Estimated GFR > 60 Random Glucose 303 H (60-115) mg/dL Calcium 9.2 D (8.4-10.2) mg/dL Total Bilirubin 0.5 (0.0-1.0) mg/dL AST 12 (5-31) U/L ALT 11 (0-31) U/L Alkaline Phosphatase 90 (39-117) U/L Total Protein 6.4 L (6.5-8.0) g/dL Albumin 3.8 (3.5-5.0) g/dL Lipase 39 (8-78) U/L Urine Color Yellow Urine Appearance Clear Urine pH 7.5 (5.0-9.0) Ur Specific [place] >= 1.030 H (1.005-1.025) Urine Protein Negative (Neg-Trace) mg/dL Urine Glucose (UA) 500 H (Negative) mg/dL Urine Ketones Trace (Negative) mg/dL Urine Blood Negative (Negative) Urine Nitrite Negative (Negative) Ur Leukocyte Esterase Negative (Negative) Urine RBC 0-2 (0-2) /HPF Urine WBC 0-5 (0-5) /HPF Ur Squamous Epith Cells 0-2 (0-2) /HPF Urine Bacteria None Seen (None Seen) Hyaline Casts 0-2 (0-2) /LPF 07/10/22 Range/Units 13:39 WBC 13.9 H (4.8-10.8) X10*3/uL RBC 4.04 L (4.20-5.50) X10*6/uL Hgb 9.8 L (12.0-16.0) g/dl Hct 30.0 L (37.0-47.0) % MCV 74.3 L (80.0-98.0) fL MCH 24.3 L (27.0-33.0) pg MCHC 32.7 (31.0-35.0) g/dl RDW 13.8 (11.0-16.0) % Plt Count 339 (160-400) X10*3/uL MPV 9.7 (9.4-12.3) fL Immature Gran % (Auto) 0.2 (0.0-0.4) % Neut % (Auto) 90.4 H (45-73) % Lymph % (Auto) 4.9 L (20-40) % [place] % (Auto) 3.8 (2-11) % Eos % (Auto) 0.5 (0-4) % Baso % (Auto) 0.2 (0-2) % Lymph # (Auto) 0.7 L (1.2-4.9) X10*3/uL [place] # (Auto) 0.5 (0.1-1.2) X10*3/uL Eos # (Auto) 0.1 (0.0-0.4) X10*3/uL Baso # (Auto) 0.0 (0.0-0.2) X10*3/uL Abs Immat Gran (auto) 0.03 (0.00-0.03) X10*3/uL Absolute Neuts (auto) 12.6 H (2.0-8.3) x10*3/uL Absolute Nucleated RBC 0.000 (0.0-0.012) X10*3/uL Nucleated RBC % (auto) 0.0 (0.0-0.2) /100WBC Smear Tech's Comments Sodium (135-145) mmol/L Potassium (3.3-5.1) mmol/L Chloride (96-108) mmol/L Carbon Dioxide (22-29) mmol/L Anion Gap (12-20) BUN (9-16) mg/dL Creatinine (0.5-1.4) mg/dL Estim Creat Clear Calc Estimated GFR Random Glucose (60-115) mg/dL Calcium (8.4-10.2) mg/dL Total Bilirubin (0.0-1.0) mg/dL AST (5-31) U/L ALT (0-31) U/L Alkaline Phosphatase (39-117) U/L Total Protein (6.5-8.0) g/dL Albumin (3.5-5.0) g/dL Lipase (8-78) U/L Urine Color Urine Appearance Urine pH (5.0-9.0) Ur Specific [place] (1.005-1.025) Urine Protein (Neg-Trace) mg/dL Urine Glucose (UA) (Negative) mg/dL Urine Ketones (Negative) mg/dL Urine Blood (Negative) Urine Nitrite (Negative) Ur Leukocyte Esterase (Negative) Urine RBC (0-2) /HPF Urine WBC (0-5) /HPF Ur Squamous Epith Cells (0-2) /HPF Urine Bacteria (None Seen) Hyaline Casts (0-2) /LPF Radiology Impression Discussion of test interpretation with radiology: I have reviewed the radiologist's reading. Radiologist Impression: OSSEOUS STRUCTURES: Multilevel mild spondylosis in the visualized spine. CT/CT abdomen pelvis w IV con IMPRESSION: ? 1. There is wall prominence/thickening of the proximal small bowel loops. This could be related to lack of distention versus enteritis. Clinically correlate. Follow-up CT for reassessment as clinically warranted. ? 2. Liver spans 19.3 cm craniocaudal. No focal liver lesions. ? 3. Status postcholecystectomy. CBD prominence probably related to cholecystectomy. Correlate with liver function tests. ? ?4. Mild right ureteral dilatation/prominence. No radiopaque ureteral calculi seen. ? Fleischner guidelines were followed. Dictated By: Reagan Tavarez MD Signed By: <Electronically signed by Reagan Tavarez MD in OV> 07/10/22 0938 DD/ 0846 TD/TT:? Licensed Staff Mft: KADY Independent Historian Clinical information obtained from an independent historian. History obtained from or confirmed by: Spouse Medications Administered Discontinued Medications Generic Name Dose Route Start Last Admin Trade Name Freq PRN Reason Stop Dose Admin Sodium Chloride 1,000 mls @ 999 mls/hr 07/10/22 07:15 07/10/22 11:09 Ns IVCONT 07/10/22 08:15 Infused .Q1H1M PRACHI Infusion Iohexol 100 ml 07/10/22 08:46 07/10/22 08:47 Iohexol 350 Mg/Ml 100 Ml Infus..Btl IV 07/10/22 08:47 85 ml ONCE ONE Administration Ondansetron HCl 4 mg 07/10/22 07:04 07/10/22 07:52 Ondansetron Hcl 4 Mg/2 Ml Vial IVPUSH 07/10/22 07:05 4 mg ONCE ONE Administration Discharge Plan Discharge Clinical Impression: Abdominal pain Patient Disposition: Home, Self-Care Instructions: Abdominal Pain (ED) Additional Instructions: Follow-up with your primary care physician, return if you worse, liquid diet for 24 hour Prescriptions: No Action naproxen 500 mg tablet 500 mg PO BID PRN (Reason: pain) Qty: 30 0RF Referrals: Weston Lagunas MD [Primary Care Provider] - 2 days
[2022-07-10 07:12] VITALS: BP 127/69; PULSE 106; RESP 21; O2SAT 99
[2022-07-10] MEDS: 0.9 % Sodium Chloride 1,000 ML 999 ML IVCONT (07:52)
[2022-07-10] MEDS: ondansetron HCL 4 MG/2 ML VIAL IVPUSH (07:52)
[2022-07-10 07:56] LABS: Basophils Absolute Auto 0.1 X10*3/uL (0.0-0.2); Basophils Percent Auto 0.3 % (0-2); Eosinophils Absolute Auto 0.1 X10*3/uL (0.0-0.4); Eosinophils Percent Auto 0.4 % (0-4); Hematocrit 35.6 % (37.0-47.0); Hemoglobin 11.6 g/dl (12.0-16.0); Imm Gran Pct Auto 0.5 % (0.0-0.4); Lymphocytes Absolute Auto 0.6 X10*3/uL (1.2-4.9); Lymphocytes Percent Auto 3.5 % (20-40); MANUAL DIFF FLAG SCAN; Mean Corpuscular HGB Conc 32.6 g/dl (31.0-35.0); Mean Corpuscular Hemoglobin 24.2 pg (27.0-33.0); Mean Corpuscular Volume 74.2 fL (80.0-98.0); Mean Platelet Volume 9.7 fL (9.4-12.3); Monocytes Absolute Auto 0.5 X10*3/uL (0.1-1.2); Monocytes Percent Auto 2.6 % (2-11); Neutrophils Absolute Auto 16.9 x10*3/uL (2.0-8.3); Neutrophils Percent Auto 92.7 % (45-73); Platelet Count 398 X10*3/uL (160-400); Red Cell Distribution Width 13.8 % (11.0-16.0); SCAN SMEAR FLAG 1; White Blood Count 18.3 X10*3/uL (4.8-10.8)
--- NOTE | 2022-07-10 08:10 | PC.NURSE ---
Alert and oriented, resp even and unlabored. IV established, labs drawn and sent. Fluids infusing and medicated per the MAR for nausea.
[2022-07-10 08:11] LABS: Alanine Aminotransferase 11 U/L (0-31); Albumin Level 3.8 g/dL (3.5-5.0); Alkaline Phosphatase 90 U/L (39-117); Anion Gap 15 (12-20); Aspartate Amino Transferase 12 U/L (5-31); Bilirubin Total 0.5 mg/dL (0.0-1.0); Blood Urea Nitrogen 17 mg/dL (9-16); Calcium 9.2 mg/dL (8.4-10.2); Carbon Dioxide 24 mmol/L (22-29); Chloride 104 mmol/L (96-108); Creatinine Clr Calc Pharmacy 67.2; Estimated Glomerular Filt Rate > 60; Glucose Random 303 mg/dL (60-115); Lipase 39 U/L (8-78); Sodium 139 mmol/L (135-145); Total Protein 6.4 g/dL (6.5-8.0)
[2022-07-10 08:12] LABS: SLIDE REVIEW VERIFIED
--- NOTE | 2022-07-10 08:44 | PC.NURSE ---
Awaiting CT results
[2022-07-10] MEDS: iohexoL 350 MG/ML 100 ML INFUS..BTL IV (08:47)
[2022-07-10 09:32] VITALS: BP 128/65; PULSE 108; RESP 18; O2SAT 100
[2022-07-10 09:49] LABS: Appearance Urine Clear; Color Urine Yellow; Glucose Urine UA 500 mg/dL (Negative); Leukocyte Esterase Urine Negative (Negative); Nitrite Urine Negative (Negative); PH 7.5 (5.0-9.0); Specific Gravity - Urine >= 1.030 (1.005-1.025); Urine Blood Negative (Negative); Urine Ketones Trace mg/dL (Negative); Urine Protein Negative (Neg-Trace)
[2022-07-10 09:54] LABS: Bacteria Urine None Seen (None Seen); Hyaline Casts Urine 0-2 /LPF (0-2); RBC Urine 0-2 /HPF (0-2); Squamous Epithelial Cell Urine 0-2 /HPF (0-2); WBC Urine 0-5 /HPF (0-5)
[2022-07-10 12:00] VITALS: BP 138/70; PULSE 96; RESP 16; O2SAT 98
[2022-07-10 13:44] LABS: Basophils Percent Auto 0.2 % (0-2); Eosinophils Absolute Auto 0.1 X10*3/uL (0.0-0.4); Eosinophils Percent Auto 0.5 % (0-4); Hemoglobin 9.8 g/dl (12.0-16.0); Imm Gran Abs Auto 0.03 X10*3/uL (0.00-0.03); Imm Gran Pct Auto 0.2 % (0.0-0.4); Lymphocytes Absolute Auto 0.7 X10*3/uL (1.2-4.9); Lymphocytes Percent Auto 4.9 % (20-40); MANUAL DIFF FLAG SCAN; Mean Corpuscular HGB Conc 32.7 g/dl (31.0-35.0); Mean Corpuscular Hemoglobin 24.3 pg (27.0-33.0); Mean Corpuscular Volume 74.3 fL (80.0-98.0); Mean Platelet Volume 9.7 fL (9.4-12.3); Monocytes Absolute Auto 0.5 X10*3/uL (0.1-1.2); Monocytes Percent Auto 3.8 % (2-11); Neutrophils Absolute Auto 12.6 x10*3/uL (2.0-8.3); Neutrophils Percent Auto 90.4 % (45-73); Platelet Count 339 X10*3/uL (160-400); Red Blood Count 4.04 X10*6/uL (4.20-5.50); Red Cell Distribution Width 13.8 % (11.0-16.0); SCAN SMEAR FLAG 1; White Blood Count 13.9 X10*3/uL (4.8-10.8)
[2022-07-10 14:08] VITALS: BP 127/67; PULSE 92; RESP 18; O2SAT 97
== END 2022-07-10 15:44 | disposition home or self-care (01) ==
PROVIDERS: Emergency Provider Emergency Medicine; PCP Internal Medicine Geriatric Medicine
DX: R10.13 Epigastric pain (principal); R11.2 Nausea with vomiting, unspecified; Z79.899 Other long term (current) drug therapy
CPT/HCPCS: 36415; 74177; 80053; 81001; 83690; 85025; 93005; 99285; J2405; Q9967

== ENCOUNTER 2022-10-26 14:44 | Outpatient (REF) | payer MEDICAID, SELFPAY ==
--- NOTE | ~2022-10-26 | MM_ITS ---
EXAMINATION: MM SCREENING DIGITAL BREAST TOMOSYNTHESIS, BILATERAL CLINICAL INFORMATION: Screening. Asymptomatic. The lifetime risk of breast cancer based on the Tyrer-Cuzick Model is 5%. COMPARISON: Mammography: 08/26/2021, 07/22/2020, 12/31/2018, 12/29/2017, 08/18/2016 TECHNIQUE: Digital breast tomosynthesis is performed in both the craniocaudal and mediolateral oblique views along with computer-aided detection (CAD). Synthesized 2D images are generated from the tomosynthesis. FINDINGS: The breasts are heterogeneously dense, which may obscure small masses (ACR BI-RADS breast composition Category c). There is a fibronodular parenchymal pattern is similar to prior studies. There are no significant masses, abnormal calcifications, or other abnormalities. No developing density or architectural abnormality. The axilla and skin contours are unremarkable. No significant changes from prior exams. MM/MM tomosynthesis screening BI IMPRESSION: No mammographic evidence of malignancy. ASSESSMENT: BI-RADS 2: Benign RECOMMENDATION: Routine annual mammography screening. This patient's information was entered into a reminder system with a target due date for their next mammogram.
== END 2022-10-26 14:45 | disposition home or self-care (01) ==
LOC: HO.MAMMO 14:44
PROVIDERS: PCP Internal Medicine Geriatric Medicine; Visit Provider Internal Medicine Geriatric Medicine
DX: Z12.31 Encounter for screening mammogram for malignant neoplasm of breast (principal)
CPT/HCPCS: 77063; 77067

== ENCOUNTER 2023-01-12 10:30 | Outpatient (REF) | payer MEDICAID, SELFPAY ==
[2023-01-12 11:17] LABS: MANUAL DIFF FLAG NO
[2023-01-12 11:50] LABS: Basophils Absolute Auto 0.1 X10*3/uL (0.0-0.2); Basophils Percent Auto 0.7 % (0-2); Eosinophils Absolute Auto 0.3 X10*3/uL (0.0-0.4); Eosinophils Percent Auto 3.4 % (0-4); Hematocrit 38.5 % (37.0-47.0); Hemoglobin 12.3 g/dl (12.0-16.0); Imm Gran Abs Auto 0.04 X10*3/uL (0.00-0.03); Imm Gran Pct Auto 0.4 % (0.0-0.4); Lymphocytes Absolute Auto 3.2 X10*3/uL (1.2-4.9); Lymphocytes Percent Auto 31.9 % (20-40); Mean Corpuscular HGB Conc 31.9 g/dl (31.0-35.0); Mean Corpuscular Hemoglobin 24.1 pg (27.0-33.0); Mean Corpuscular Volume 75.5 fL (80.0-98.0); Mean Platelet Volume 10.1 fL (9.4-12.3); Monocytes Absolute Auto 0.7 X10*3/uL (0.1-1.2); Monocytes Percent Auto 6.6 % (2-11); Neutrophils Absolute Auto 5.6 x10*3/uL (2.0-8.3); Platelet Count 423 X10*3/uL (160-400); Red Cell Distribution Width 14.3 % (11.0-16.0); White Blood Count 9.9 X10*3/uL (4.8-10.8)
[2023-01-12 11:56] LABS: Estimated Average Glucose 203 mg/dL; Hemoglobin A1c % 8.7 % (<6.0)
[2023-01-12 13:03] LABS: Alanine Aminotransferase 16 U/L (0-31); Albumin Level 3.9 g/dL (3.5-5.0); Alkaline Phosphatase 89 U/L (39-117); Anion Gap 12 (12-20); Aspartate Amino Transferase 16 U/L (5-31); Bilirubin Direct 0.1 mg/dL (0.0-0.5); Bilirubin Total 0.4 mg/dL (0.0-1.0); Blood Urea Nitrogen 13 mg/dL (9-16); Calcium 10.1 mg/dL (8.4-10.2); Carbon Dioxide 29 mmol/L (22-29); Chloride 103 mmol/L (96-108); Cholesterol 118 mg/dL (<200); Estimated Glomerular Filt Rate > 60; Glucose Random 163 mg/dL (60-115); HDL Cholesterol 47 mg/dL (>40); LDL Cholesterol Calculated 52 mg/dL (<100); Potassium 4.7 mmol/L (3.3-5.1); Sodium 139 mmol/L (135-145); Total Protein 7.1 g/dL (6.5-8.0); Triglycerides 96 mg/dL (<150)
[2023-01-12 13:10] LABS: Creatinine Urine 78.03 mg/dL; Microalbum/Creatinine Ratio Ur 6.4 ug/mg cr (<30)
[2023-01-12 13:27] LABS: Vitamin B12 445 pg/mL (200-900)
== END 2023-01-12 10:31 | disposition home or self-care (01) ==
LOC: HO.HHCL 10:30
PROVIDERS: Visit Provider Internal Medicine Geriatric Medicine
DX: E11.8 Type 2 diabetes mellitus with unspecified complications (principal)
CPT/HCPCS: 36415; 80053; 80061; 82043; 82248; 82607; 83036; 85025

== ENCOUNTER 2023-10-10 16:28 | Outpatient (REF) | payer MEDICAID, SELFPAY ==
[2023-10-11 12:06] LABS: CT PCR NOT DETECTED (Not Detect.); NG PCR NOT DETECTED (Not Detect.)
== END 2023-10-10 16:29 | disposition home or self-care (01) ==
LOC: HO.HHCLNP 16:28
PROVIDERS: Visit Provider Advanced Practice Midwife
DX: Z11.3 Encounter for screening for infections with a predominantly sexual mode of transmission (principal)
CPT/HCPCS: 0353U

== ENCOUNTER 2023-11-01 14:39 | Outpatient (REF) | payer MEDICAID, SELFPAY | END 2023-11-01 14:40 | disposition home or self-care (01) | LOC: HO.MAMMO 14:39 | PROVIDERS: PCP Internal Medicine Geriatric Medicine; Visit Provider Internal Medicine Geriatric Medicine | DX: Z12.31 Encounter for screening mammogram for malignant neoplasm of breast (principal) | CPT/HCPCS: 77063; 77067 ==

== ENCOUNTER → 2023-11-01 14:45 | Outpatient (BNV) | payer MEDICAID, SELFPAY | PROVIDERS: PCP Internal Medicine Geriatric Medicine; Visit Provider Radiology Diagnostic Radiology | DX: Z12.31 Encounter for screening mammogram for malignant neoplasm of breast (principal) | CPT/HCPCS: 77063; 77067 ==

== ENCOUNTER 2023-12-19 09:40 | Outpatient (REF) | payer MEDICAID, SELFPAY ==
[2023-12-19 11:53] LABS: Alanine Aminotransferase 11 U/L (0-31); Albumin Level 3.9 g/dL (3.5-5.0); Alkaline Phosphatase 87 U/L (39-117); Anion Gap 10 (12-20); Aspartate Amino Transferase 14 U/L (5-31); Bilirubin Total 0.3 mg/dL (0.0-1.0); Blood Urea Nitrogen 12 mg/dL (9-16); Carbon Dioxide 28 mmol/L (22-29); Chloride 107 mmol/L (96-108); Cholesterol 124 mg/dL (<200); Estimated Glomerular Filt Rate > 60; Glucose Random 146 mg/dL (60-115); HDL Cholesterol 44 mg/dL (>40); LDL Cholesterol Calculated 59 mg/dL (<100); Potassium 3.9 mmol/L (3.3-5.1); Sodium 141 mmol/L (135-145); Total Protein 6.9 g/dL (6.5-8.0); Triglycerides 107 mg/dL (<150)
[2023-12-19 12:18] LABS: HBsAGNum1 0.23 S/CO (0.00-0.99); HIV AB/AG Nonreactive (Nonreactive); HIV Num 1 0.05 S/CO (0.00-0.99); Hepatitis B Surface Antigen Negative (Negative); ~Hepatitis B Surface Antibody REACTIVE (Nonreactive); ~Hepatitis C Antibody Nonreactive (Nonreactive)
[2023-12-19 12:22] LABS: Syphilis Screen Nonreactive (Nonreactive)
[2023-12-19 13:02] LABS: HBc Num2 4.88 S/CO; HBc Num3 4.82 S/CO; Hepatitis B Core Antibody Reactive (Nonreactive)
== END 2023-12-19 09:41 | disposition home or self-care (01) ==
LOC: HO.HHCL 09:40
PROVIDERS: Internal Medicine Geriatric Medicine; Visit Provider Advanced Practice Midwife
DX: E11.9 Type 2 diabetes mellitus without complications (principal); Z11.3 Encounter for screening for infections with a predominantly sexual mode of transmission
CPT/HCPCS: 36415; 80053; 80061; 86704; 86706; 86780; 86803; 87340; 87389

== ENCOUNTER 2024-02-04 18:40 | Emergency (ER) | payer MEDICAID, SELFPAY ==
--- NOTE | 2024-02-04 18:54 | ED.GENADULT ---
HPI - General Adult General Chief complaint: Abdominal Pain Stated complaint: headache/stomach/weakness Time Seen by Provider: 02/04/24 22:22 Source: patient Mode of arrival: ambulatory Limitations: no limitations History of Present Illness ED Provider: maria elena PRASAD narrative: Patient is otherwise Healthy been having body aches, nasal congestion, nausea for last 2 days patient has had COVID 2 times never been occasional cough no shortness breath Related Data Previous Rx's ?Medication ?Instructions ?Recorded naproxen 500 mg tablet 500 mg PO BID PRN pain #30 tabs 11/19/21 ibuprofen 600 mg tablet 600 mg PO Q6H PRN fever or pain 02/04/24 #30 tabs ondansetron 4 mg disintegrating 4 mg PO Q6-8H PRN nausea and 02/04/24 tablet vomiting #7 tabs Allergies Allergy/AdvReac Type Severity Reaction Status Date / Time diphenhydramine Allergy Unknown PALPATATION Verified 02/04/24 18:56 [From BENADRYL] S Benadryl Allergy Unknown palpitation Uncoded 02/04/24 18:56 Review of Systems Review of Systems: Yes all other systems are reviewed and are negative [facility] Past Medical History Medical History HLD (hyperlipidemia) HTN (hypertension) Diabetes Surgical History Hx of cholecystectomy Social History Social History Alcohol intake: never Patient Tobacco Use Status: Never used Tobacco Gender identity: Female Physical Exam ED Vital Signs: Vital Signs - 24 hr 02/04/24 18:56 Temperature 99.7 F Pulse Rate 103 H Respiratory Rate 20 Blood Pressure 120/66 Pulse Oximetry 99 Oxygen Delivery Method Room Air BMI result Body Mass Index 25.6 Appearance: Alert. Oriented X3. No acute distress. Eyes: No pallor or icterus ENT: Pharynx normal. Oral Mucosa moist Neck: Normal inspection. Neck supple. CVS: Normal heart rate and rhythm. Pulses normal. Respiratory: No respiratory distress. Equal air entry bilateral, no wheezing/rales/rhonchi Abdomen: Soft and nontender. Bowel sounds are present, Skin: Skin warm and dry. Normal skin color. Normal skin turgor. Extremities: No lower extremity edema. No calf tenderness Neuro: Oriented X 3. No motor deficit. Course Course Course Narrative: This is an RME performed by Alexandre Guzman CNP: Additional HPI, ROS, PE not included below will be deferred to primary provider. Patient is a 58-year-old female who presents emergency for evaluation a diffuse Headache, dizziness, generalized weakness ,nausea without vomiting, diffuse abdominal pain, having frequent soft stools but states no diarrhea. Symptom onset this morning. Denies symptoms. Plan: Labs, viral serologies, urinalysis Medical Decision Making Lab Data [facility] Lab Attestation statement: I reviewed the patient's lab results. 02/04/24 19:22 02/04/24 19:22 Labs: Lab Results 02/04/24 Range/Units 19:22 WBC 10.6 (4.8-10.8) X10*3/uL RBC 4.50 (4.20-5.50) X10*6/uL Hgb 11.1 L (12.0-16.0) g/dl Hct 33.0 L (37.0-47.0) % MCV 73.3 L (80.0-98.0) fL MCH 24.7 L (27.0-33.0) pg MCHC 33.6 (31.0-35.0) g/dl RDW 14.4 (11.0-16.0) % Plt Count 333 (160-400) X10*3/uL MPV 9.4 (9.4-12.3) fL Immature Gran % (Auto) 0.4 (0.0-0.4) % Neut % (Auto) 79.9 H (45-73) % Lymph % (Auto) 6.7 L (20-40) % [place] % (Auto) 11.0 (2-11) % Eos % (Auto) 1.6 (0-4) % Baso % (Auto) 0.4 (0-2) % Lymph # (Auto) 0.7 L (1.2-4.9) X10*3/uL [place] # (Auto) 1.2 (0.1-1.2) X10*3/uL Eos # (Auto) 0.2 (0.0-0.4) X10*3/uL Baso # (Auto) 0.0 (0.0-0.2) X10*3/uL Abs Immat Gran (auto) 0.04 H (0.00-0.03) X10*3/uL Absolute Neuts (auto) 8.5 H (2.0-8.3) x10*3/uL Absolute Nucleated RBC 0.000 (0.0-0.012) X10*3/uL Nucleated RBC % (auto) 0.0 (0.0-0.2) /100WBC Sodium 136 (135-145) mmol/L Potassium 3.6 (3.3-5.1) mmol/L Chloride 102 (96-108) mmol/L Carbon Dioxide 24 (22-29) mmol/L Anion Gap 14 (12-20) BUN 10 (9-16) mg/dL Creatinine 0.73 (0.5-1.4) mg/dL Estim Creat Clear Calc 64.1 Estimated GFR > 60 Random Glucose 177 H (60-115) mg/dL Calcium 9.6 (8.4-10.2) mg/dL Total Bilirubin 0.3 (0.0-1.0) mg/dL AST 16 (5-31) U/L ALT 16 (0-31) U/L Alkaline Phosphatase 91 (39-117) U/L Troponin I High Sens < 2.7 (<3.5-17.0) ng/L Total Protein 7.0 (6.5-8.0) g/dL Albumin 3.9 (3.5-5.0) g/dL Lipase 35 (8-78) U/L Influenza Type A (PCR) NEGATIVE (Negative) Influenza Type B (PCR) NEGATIVE (Negative) RSV RNA Qual (PCR) NEGATIVE (Negative) SARS-CoV-2 RNA (RT-PCR) POSITIVE A (Negative) Discharge Plan Discharge Clinical Impression: COVID-19 Patient Disposition: Home, Self-Care Instructions: COVID-19 (Coronavirus Disease 2019) (ED) Additional Instructions: Drink plenty of fluid Medicine for nausea as prescribed Ibuprofen for pain Prescriptions: New ibuprofen 600 mg tablet 600 mg PO Q6H PRN (Reason: fever or pain) Qty: 30 0RF ondansetron 4 mg tablet,disintegrating 4 mg PO Q6-8H PRN (Reason: nausea and vomiting) Qty: 7 0RF No Action naproxen 500 mg tablet 500 mg PO BID PRN (Reason: pain) Qty: 30 0RF Print Language: Setswana
[2024-02-04 18:56] VITALS: BP 120/66; PULSE 103; RESP 20; TEMP 37.6; O2SAT 99; BMI 25.6
--- NOTE | 2024-02-04 18:57 | ECG_ITS ---
Test Reason : DIZZINESS Blood Pressure : / mmHG Vent. Rate : 097 BPM Atrial Rate : 097 BPM P-R Int : 152 ms QRS Dur : 074 ms QT Int : 334 ms P-R-T Axes : 053 008 065 degrees QTc Int : 424 ms Normal sinus rhythm Nonspecific T wave abnormality Abnormal ECG When compared with ECG of 10-JUL-2022 06:38, No significant change was found Referred By: Serena Guzman Electronically Signed By:BALJEET GRACIA
[2024-02-04 19:28] LABS: MANUAL DIFF FLAG NO
[2024-02-04 19:30] LABS: Basophils Percent Auto 0.4 % (0-2); Eosinophils Absolute Auto 0.2 X10*3/uL (0.0-0.4); Eosinophils Percent Auto 1.6 % (0-4); Hemoglobin 11.1 g/dl (12.0-16.0); Imm Gran Abs Auto 0.04 X10*3/uL (0.00-0.03); Imm Gran Pct Auto 0.4 % (0.0-0.4); Lymphocytes Absolute Auto 0.7 X10*3/uL (1.2-4.9); Lymphocytes Percent Auto 6.7 % (20-40); Mean Corpuscular HGB Conc 33.6 g/dl (31.0-35.0); Mean Corpuscular Hemoglobin 24.7 pg (27.0-33.0); Mean Corpuscular Volume 73.3 fL (80.0-98.0); Mean Platelet Volume 9.4 fL (9.4-12.3); Monocytes Absolute Auto 1.2 X10*3/uL (0.1-1.2); Neutrophils Absolute Auto 8.5 x10*3/uL (2.0-8.3); Neutrophils Percent Auto 79.9 % (45-73); Platelet Count 333 X10*3/uL (160-400); Red Cell Distribution Width 14.4 % (11.0-16.0); White Blood Count 10.6 X10*3/uL (4.8-10.8)
[2024-02-04 19:56] LABS: Alanine Aminotransferase 16 U/L (0-31); Albumin Level 3.9 g/dL (3.5-5.0); Alkaline Phosphatase 91 U/L (39-117); Anion Gap 14 (12-20); Aspartate Amino Transferase 16 U/L (5-31); Bilirubin Total 0.3 mg/dL (0.0-1.0); Blood Urea Nitrogen 10 mg/dL (9-16); Calcium 9.6 mg/dL (8.4-10.2); Carbon Dioxide 24 mmol/L (22-29); Chloride 102 mmol/L (96-108); Creatinine Clr Calc Pharmacy 64.1; Estimated Glomerular Filt Rate > 60; Glucose Random 177 mg/dL (60-115); Lipase 35 U/L (8-78); Potassium 3.6 mmol/L (3.3-5.1); Sodium 136 mmol/L (135-145)
[2024-02-04 20:16] LABS: Influenza A PCR NEGATIVE (Negative); Influenza B PCR NEGATIVE (Negative); Resp Syncy Virus RNA Qual PCR NEGATIVE (Negative); SARS COV2 PCR INHOUSE POSITIVE (Negative)
[2024-02-04 20:18] LABS: Troponin-I High Sensitivity < 2.7 ng/L (<3.5-17.0)
[2024-02-04 22:54] VITALS: BP 104/63; PULSE 86
[2024-02-04 22:56] VITALS: BP 103/61; PULSE 90
[2024-02-04 22:57] VITALS: BP 100/56; PULSE 95
[2024-02-04] MEDS: Ondansetron ODT 4 MG TAB.RAPDIS TRANSLINGU (22:59)
[2024-02-04] MEDS: Ibuprofen 600 MG TABLET PO (22:59)
[2024-02-04 23:06] VITALS: BP 104/63; PULSE 86; RESP 18; TEMP 38; O2SAT 99
== END 2024-02-04 23:07 | disposition home or self-care (01) ==
PROVIDERS: Nurse Practitioner Family; Emergency Provider Internal Medicine; PCP Internal Medicine Geriatric Medicine
DX: U07.1 COVID-19 (principal); M79.10 Myalgia, unspecified site; R09.81 Nasal congestion; R11.0 Nausea; R05.9 Cough, unspecified; R51.9 Headache, unspecified
CPT/HCPCS: 0241U; 36415; 80053; 83690; 84484; 85025; 93005; 99284; 99285

== ENCOUNTER 2024-03-21 13:24 | Outpatient (AMB) | payer MEDICAID, SELFPAY ==
--- NOTE | 2024-03-21 13:23 | MHC.OFFVIS ---
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 Patient states she has painful varicose veins but the right is worse. Both legs swell and cramp. Patient is diabetic. 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 Complaints include pain over varicosities, swelling of lower extremities, cramping, fatigue, and heaviness of the lower extremities. It has been affecting there daily activities including walking. It is noted more so in right leg. Reports it all began 22 years ago with the of her child. Of note she is a diabetic and a nonsmoker. Patient denies any previous venous surgery or injections. Patient denies any history of DVT/ PE. Patient denies any history of phlebitis. Trial of compression includes - [id number] They now present for vascular evaluation regarding their varicose veins. [facility] Medical History HLD (hyperlipidemia) HTN (hypertension) Diabetes Surgical History Hx of cholecystectomy Social History Alcohol intake: never Patient Tobacco Use Status: Never used Tobacco Gender identity: Female Review of Systems Const All systems reviewed & are unremarkable except as noted in HPI and below Reports as per HPI ENT Reports no additional complaints and Reports Normal hearing present Card Denies chest pain, Denies chest pain at rest and Denies chest pain with activity Resp Denies chest congestion and Denies cough GI Reports no additional complaints Musc Details: pain over varicosities, aching of lower extremities, swelling, cramping, heaviness and tiredness, itching Denies abnormal gait Skin/Breast Reports pruritus and Denies wounds Neuro Reports no additional complaints, Reports Normal hearing present and Denies abnormal gait Psych Denies no additional complaints Physical Exam Const General: cooperative, healthy appearing and comfortable Orientation/consciousness: oriented to person, oriented to place and oriented to time HEENT Head: Yes normal to inspection Neck Neck: Yes normal visual inspection Carotids: no bruits Chest Chest palpation & inspection: normal inspection of the chest and normal palpation of entire chest wall Resp Effort & Inspection: normal respiratory effort and able to speak in complete sentences Auscultation: clear to auscultation bilaterally, no crackles, no rales, no rhonchi and no wheezes Cardio Rate: regular rate Rhythm: regular rhythm Heart sounds: S1 normal heart sound present and S2 normal heart sound present Bruits: no carotid bruits Peripheral pulses: Peripheral pulses 2+ throughout GI Inspection: Yes normal to inspection Skin Other: +2 edema, large rope-like varicosities greater than 4 mm right thigh and calf CEAP Classification C4 - skin color changes Ep - Etiology Primary As - superficial veins P - reflux General skin exam: dry skin Wounds: no wounds Hair: normal Neuro General: oriented to person, oriented to place and oriented to time Cranial nerves: Yes CN's II-XII intact bilaterally and Yes Normal hearing present Cognition (Neuro): normal cognition Motor exam (neuro): 5/5 motor strength present throughout Extrem Other: venous exam: No significant superficial varicosities or spider telangiectasias, minimal edema General: No clubbing, No cyanosis and No edema Right lower extremity: full ROM, normal capillary refill and edema Left lower extremity: full ROM, normal capillary refill and edema Psych Appearance: grossly normal Mental Status: mental status grossly normal Speech and movement: Normal speech and movement present Assessment & Plan Assessment & Plan (1) Varicose veins of right lower extremity with inflammation: Code(s): I83.11 - Varicose veins of right lower extremity with inflammation Category: Medical Plan: In short, the patient has evidence of venous insufficiency. I have discussed the pathophysiology with the patient. In addition I have provided informational material regarding venous disease to the patient. We have discussed conservative measures including compression, elevation, and exercise. I have also provided a handout regarding appropriate use of compression stockings and where to purchase good compression stockings as well. I have taken the liberty of ordering venous insufficiency testing with the patient. They will follow up with me after testing. The patient had an opportunity to ask questions regarding the treatment plan. All questions were answered. Imaging studies, laboratory studies and physical exam results were discussed and reviewed in detail. No major barriers to understanding were identified. The patient expressed understanding and agreement with the above treatment plan. The patient is aware they should contact our office by phone for worsening of the current condition or the appearance of new symptoms. Thank you for allowing me to participate in the vascular care of this patient. If you have any questions or concerns regarding the treatment for the above condition please do not hesitate to contact me. The office telephone contact is [phone]. This note is constructed using voice recognition software. While every effort has been made to ensure accuracy, artificial breeding ranch supervisor errors may have been included. Thank you for allowing me to participate in the care of your patient. Yours sincerely, Modesto Snyder MD, FACS, R.P.V.I. Orders: Orders US venous duplex LE BI 1 Week I83.11 - Varicose veins of right lower extremity with inflammation Coding Level of Care Code New Pt Level 4 (79819) Diagnoses Varicose veins of right lower extremity with inflammation I83.11
== END 2024-03-21 13:44 | disposition home or self-care (01) ==
PROVIDERS: PCP Internal Medicine Geriatric Medicine; Visit Provider Surgery Vascular Surgery
DX: I83.11 Varicose veins of right lower extremity with inflammation (principal)
CPT/HCPCS: 99204

== ENCOUNTER → 2024-03-21 13:24 | Outpatient (BNVA) | payer MEDICAID, SELFPAY | PROVIDERS: PCP Internal Medicine Geriatric Medicine; Visit Provider Surgery Vascular Surgery | DX: I83.11 Varicose veins of right lower extremity with inflammation (principal) | CPT/HCPCS: 99202 ==

== ENCOUNTER 2024-04-05 12:34 | Outpatient (REF) | payer MEDICAID, SELFPAY ==
--- NOTE | ~2024-04-05 | US_ITS ---
EXAMINATION: US LOWER EXTREMITY VENOUS (REFLUX EXAM), BILATERAL CLINICAL INDICATION: Varicose veins of right lower extremity with inflammation COMPARISON: None. TECHNIQUE: Color flow triplex imaging and compression Doppler was performed to evaluate both the deep and the superficial systems bilaterally. To evaluate the superficial system, the examination was performed in the upright position. Color-flow Doppler ultrasound and compression ultrasound were utilized. In addition, maneuvers were utilized to demonstrate reflux. FINDINGS: 1. DEEP VENOUS ULTRASOUND OF THE RIGHT LOWER EXTREMITY: Common Femoral Vein: Compressible, normal respiratory variation and augmented flow. Femoral Vein: Compressible, normal color flow and augmentation. Popliteal Vein: Compressible, normal augmentation. Deep Reflux: There is no evidence of reflux in the deep system in either the common femoral vein, superficial femoral or the popliteal vein. There is no evidence of a Renner's cyst. 2. SUPERFICIAL ULTRASOUND WITH DOPPLER OF RIGHT LOWER EXTREMITY: GREAT SAPHENOUS VEIN: Saphenofemoral Junction: 0.6 cm; Reflux: 0 ms Proximal Thigh: 0.3 cm; Reflux: 0 ms Mid Thigh: 0.2 cm; Reflux: 0 ms Above Knee: 0.2 cm; Reflux: 0 ms At Knee: 0.3 cm; Reflux: 0 ms Below Knee: 0.2 cm; Reflux: 0 ms Mid Calf: 0.2 cm; Reflux: 0 ms Ankle: 0.2 cm; Reflux: 0 ms DUPLICATED LATERAL GREAT SAPHENOUS VEIN: Saphenofemoral Junction: 0.5 cm; Reflux: 0 ms Mid Thigh: Not visualized SMALL SAPHENOUS VEIN: Saphenopopliteal Junction: 0.3 cm; Reflux: 0 ms Proximal: Not visualized Distal: 0.3 cm; Reflux: 0 ms PERFORATORS: Location: None imaged Size: NA; Reflux: 0 ms VARICOSITIES: Location: None imaged Size: NA; Reflux: 0 ms 3. DEEP VENOUS ULTRASOUND OF THE LEFT LOWER EXTREMITY: Common Femoral Vein: Compressible, normal respiratory variation and augmented flow. Femoral Vein: Compressible, normal color flow and augmentation. Popliteal Vein: Compressible, normal augmentation. Deep Reflux: There is no evidence of reflux in the deep system in either the common femoral vein, superficial femoral or the popliteal vein. There is no evidence of a Renner's cyst. 4. SUPERFICIAL ULTRASOUND WITH DOPPLER OF LEFT LOWER EXTREMITY: GREAT SAPHENOUS VEIN: Saphenofemoral Junction: 0.6 cm; Reflux: 0 ms Proximal Thigh: 0.5 cm; Reflux: 0 ms Mid Thigh: 0.2 cm; Reflux: 0 ms Above Knee: 0.4 cm; Reflux: 3476 ms At Knee: 0.2 cm; Reflux: 2784 ms Below Knee: 0.3 cm; Reflux: 3524 ms Mid Calf: 0.2 cm; Reflux: 0 ms Ankle: 0.1 cm; Reflux: 0 ms DUPLICATED LATERAL GREAT SAPHENOUS VEIN: Saphenofemoral Junction: 0.3 cm; Reflux: 0 ms Mid Thigh: Not visualized SMALL SAPHENOUS VEIN: Saphenopopliteal Junction: 0.6 cm; Reflux: 0 ms Proximal: Not visualized Distal: 0.2 cm; Reflux: 0 ms PERFORATORS: Location: Mid calf Size: 0.1; Reflux: 0 ms VARICOSITIES: Location: Proximal thigh Size: 0.3; Reflux: 2344 ms Location: Distal thigh Size: 0.4; Reflux: 3528 ms Location: Mid calf Size: 0.3; Reflux: 1692 ms US/US venous duplex LE BI IMPRESSION: 1. No evidence of deep venous thrombosis or deep venous reflux. 2. No evidence of superficial venous reflux in the right lower extremity. 3. Incompetent in the left great saphenous vein from the distal thigh to the mid calf with significant reflux measuring up to 3524 ms. 4. Multiple varicosities in the left lower extremity with significant reflux measuring up to 4 mm and 3528 ms. Electronically signed by: Allegra Marinelli MD 05/01/2024 05:09 PM [facility]
== END 2024-04-05 12:35 | disposition home or self-care (01) ==
LOC: HO.US 12:34
PROVIDERS: PCP Internal Medicine Geriatric Medicine; Visit Provider Surgery Vascular Surgery
DX: I83.11 Varicose veins of right lower extremity with inflammation (principal)
CPT/HCPCS: 93970

== ENCOUNTER 2024-04-16 12:52 | Outpatient (AMB) | payer MEDICAID, SELFPAY ==
--- NOTE | 2024-04-16 13:00 | MHC.OFFVIS ---
Intake Visit Reasons: follow up s/p US 04/05/24 Intake Note: Patient presents for US follow up. Patient states her legs have been hurting since she had the ultrasound done on 04/05. Accompanied by: Self / Same As Patient Allergies diphenhydramine [From BENADRYL] Allergy (Unknown, Verified 04/16/24 13:02) PALPATATIONS Benadryl Allergy (Unknown, Uncoded 02/04/24 18:56) palpitation HPI HPI follow up s/p US 04/05/24: Details: Pepper is presenting today as a follow-up to her venous insufficiency ultrasound done on 04/05/2024. She states the ultrasound was very painful and she continues to have pain bilaterally from the ultrasound. She states her right leg is more painful than her left leg. She states continues to have concerns because she is a diabetic. PFSH Medical History HLD (hyperlipidemia) HTN (hypertension) Diabetes Surgical History Hx of cholecystectomy Social History Alcohol intake: never Patient Tobacco Use Status: Never used Tobacco Gender identity: Female Review of Systems Const Reports as per HPI and Denies weakness ENT Reports Normal hearing present and Denies dizziness Card Reports as per HPI, Denies chest pain, Denies chest pain at rest, Denies chest pain with activity, Denies dyspnea and Denies dyspnea on exertion Resp Reports as per HPI, Denies cough, Denies dyspnea and Denies dyspnea on exertion GI Reports as per HPI, Denies abdominal pain, Denies nausea and Denies vomiting Musc Denies numbness Skin/Breast Reports as per HPI, Denies erythema and Denies wounds Neuro Reports Normal hearing present, Denies dizziness, Denies numbness, Denies Sensory deficit (Neuro) and Denies weakness Psych Reports no additional complaints Endo Reports no additional complaints Physical Exam Const General: healthy appearing and no acute distress Orientation/consciousness: patient oriented x3 HEENT Head: Yes normal to inspection Ears: hearing grossly normal bilaterally Mouth: Normal oral and palatal mucosa present Resp Effort & Inspection: normal respiratory effort and able to speak in complete sentences Auscultation: clear to auscultation bilaterally Cardio Jugular venous distension: no JVD Rate: regular rate Rhythm: regular rhythm Heart sounds: S1 normal heart sound present and S2 normal heart sound present Bruits: no abdominal aortic bruits, no carotid bruits, no femoral bruits and no renal bruits Peripheral pulses: Peripheral pulses 2+ throughout GI Inspection: Yes normal to inspection Palpation (GI): No Abdominal aortic bruit present Skin General skin exam: no rashes or lesions noted Wounds: no wounds Hair: normal Neuro General: patient oriented x3 Cranial nerves: Yes Normal hearing present Cognition (Neuro): normal cognition Gait exam (Neuro): Normal gait present Motor exam (neuro): 5/5 motor strength present throughout Sensory Exam: No Sensory deficit (Neuro) Extrem Other: large rope-like varicosities greater than 4 mm right thigh and calf General: Yes normal to inspection, Yes full ROM, Yes capillary refill normal and Yes normal gait Results Reviewed Results Reviewed: Brief summary of venous insufficiency testing is as follows: right great saphenous vein: negative right small saphenous vein: negative right accessory vein: none present left great saphenous vein: positive, around and below the knee left small saphenous vein: negative left accessory vein: none present Please note there is no evidence of any venous aneurysms or significant tortuosity VV noted in the left prox thigh, distal thigh, and mid calf Assessment & Plan Assessment & Plan (1) Varicose veins of right lower extremity with inflammation: Code(s): I83.11 - Varicose veins of right lower extremity with inflammation Category: Medical Plan: Pepper is presenting today as a follow up to her venous insufficiency ultrasound performed on 04/05/2024. She states she continues to have lower extremity pain, right more than left, worse after the ultrasound. The venous insufficiency ultrasound shows some insufficiency in the left great saphenous vein above and around the knee, with the patient denies any complaints in that area or of the left lower extremity. At this point, due to no findings of venous insufficiency in the right lower extremity and only in the left, we do not believe she is a surgical candidate at this point. We discussed that she can reach out to us at any point if anything changes. We discussed that the the visible varicosities that she has is likely just cosmetic and we do not fix that in this office. We suggested to her to continue with elevation and compression stockings and physical activity/walking whenever possible. Thank you for the referral. If there are any questions or concerns, please do not hesitate to reach out to us. Coding Level of Care Code Est Pt Level 4 (79034) Diagnoses Varicose veins of right lower extremity with inflammation I83.11 Comment Review of venous insufficiency ultrasound
== END 2024-04-16 13:19 | disposition home or self-care (01) ==
PROVIDERS: PCP Internal Medicine Geriatric Medicine; Visit Provider Physician Assistant Surgical
DX: I83.11 Varicose veins of right lower extremity with inflammation (principal)
CPT/HCPCS: 99214

== ENCOUNTER → 2024-04-16 12:52 | Outpatient (BNVA) | payer MEDICAID, SELFPAY | PROVIDERS: PCP Internal Medicine Geriatric Medicine; Visit Provider Physician Assistant Surgical | DX: I83.11 Varicose veins of right lower extremity with inflammation (principal) | CPT/HCPCS: 99212 ==

== ENCOUNTER 2024-10-17 14:05 | Outpatient (REF) | payer MEDICAID, SELFPAY ==
[2024-10-18 08:08] LABS: Syphilis Screen Nonreactive (Nonreactive)
[2024-10-18 08:19] LABS: HIV AB/AG Nonreactive (Nonreactive); HIV Num 1 0.07 S/CO (0.00-0.99)
[2024-10-19 18:48] LABS: C. trachomatis RNA TMA NOT DETECTED (NOT DETECTED); N. gonorrhoeae RNA TMA NOT DETECTED (NOT DETECTED); Trichomonas (NAAT) NOT DETECTED (NOT DETECTED)
[2024-10-23 11:42] LABS: HPV Genotype 16 Negative (Negative); HPV Genotype 18 Negative (Negative); HPV High Risk Negative (Negative)
== END 2024-10-17 14:06 | disposition home or self-care (01) ==
LOC: HO.HHCL 14:05
PROVIDERS: Visit Provider Advanced Practice Midwife
DX: Z12.4 Encounter for screening for malignant neoplasm of cervix (principal); R30.0 Dysuria; Z11.3 Encounter for screening for infections with a predominantly sexual mode of transmission; Z78.0 Asymptomatic menopausal state; Z87.410 Personal history of cervical dysplasia
CPT/HCPCS: 36415; 86780; 87086; 87389; 87491; 87591; 87626; 87661; 88175

== ENCOUNTER 2024-11-12 11:00 | Outpatient (REF) | payer MEDICAID, SELFPAY ==
--- NOTE | ~2024-11-12 | MM_ITS ---
EXAMINATION: MM SCREENING DIGITAL BREAST TOMOSYNTHESIS, BILATERAL CLINICAL INFORMATION: Screening. Asymptomatic. COMPARISON: Mammography: Comparison is made with available priors TECHNIQUE: Digital breast mammography with tomosynthesis is performed in both the craniocaudal and mediolateral oblique views along with computer-aided detection (CAD). FINDINGS: The breasts are extremely dense, which lowers the sensitivity of mammography (ACR BI-RADS breast composition Category d). Bilateral scattered asymmetries are stable. Circumscribed oval masses which wax and wane bilaterally consistent with benign fibrocystic changes. There are no significant masses, abnormal calcifications, or other abnormalities. MM/MM tomosynthesis screening BI IMPRESSION: No mammographic evidence of malignancy. ASSESSMENT: BI-RADS BI-RADS 2 - Benign Findings RECOMMENDATION: Routine annual mammography screening. 1 year F/U This examination should not preclude the clinical evaluation of a suspicious palpable abnormality. This patient's information was entered into a reminder system with a target due date for their next mammogram. Electronically signed by: Michelle Booker DO 11/15/2024 05:34 PM EDT
--- OUTSIDE RECORDS SUMMARY | 2024-11-12 12:35 | XMS_ITS | Encounter Summary ---
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 I have housing today, but I am worried about losing housing in the future 03/10/[address] you li ve. Do you have problems with any of the following? None of the above 03/10/2023 Food Insecurity Answer Date Recorded Within the past 12 months, y ou worried that your food would run out before you got money to buy more: Never True 03/10/2023 Within the past 12 months,th e food you bought just didn't last and you didn't have enough money to get more: Never True Transportation Answer Date Recorded In the past 12 months, has l ack of transportation kept you from medical appts, meetings, work or from getting things needed for daily living? No 03/10/2023 Utilities Answer Date Recorded In the past 12 months, has t he electric, gas, oil or water company threatened to shut off services in your home? No 03/10/2023 Depression Answer Date Recorded Patient Health Questionnaire-2 Score 6 08/15/2022 Comments Unknown Sex and Gender Information Value Date Recorded Sex Assigned at Female 03/21/2022 10:14 AM EDT Legal Sex Female 10:14 AM EDT Gender Identity Choose not to disclose 10:14 AM EDT Sexual Orientation Straight 03/21/2022 10 :14 AM EDT documented as of this encounter Plan of Treatment Upcoming Encounters Date Type Department Care Team (Late st Contact Info) Description 11/12/2024 2:30 PM EDT Office Visit [facility] [address] [place] [phone] NameWeston MD [address] [place] [phone] 11/28/2024 11:00 AM EDT Medication Management [facility] [address] [place] [phone] PuiaChanel, PharmD [address] [place] [phone] documented as of this encounter Goals Goal Patient Goal Type Associated Problems Recent Progress Patient-Stated? Author Hemoglobin A1c < 7 Result Component 7.9( 5 1:17 PM EDT) No Puia, Chanel, PharmD Record your blood sugar as directed Result Component No Puia, Chanel, PharmD Note: Continue to check FBG, change PM testing time to ~2 hrs post dinner to aid in med titration. 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
== END 2024-11-12 11:01 | disposition home or self-care (01) ==
LOC: HO.MAMMO 11:00
PROVIDERS: PCP Internal Medicine Geriatric Medicine; Visit Provider Internal Medicine Geriatric Medicine
DX: Z12.31 Encounter for screening mammogram for malignant neoplasm of breast (principal)
CPT/HCPCS: 77063; 77067

== ENCOUNTER → 2024-11-12 11:30 | Outpatient (BNV) | payer MEDICAID, SELFPAY | PROVIDERS: PCP Internal Medicine Geriatric Medicine; Visit Provider Internal Medicine | DX: Z12.31 Encounter for screening mammogram for malignant neoplasm of breast (principal) | CPT/HCPCS: 77063; 77067 ==

== ENCOUNTER 2025-02-19 12:17 | Outpatient (AMB) | payer MEDICAID, SELFPAY ==
[2025-02-19 12:20] VITALS: BP 112/57; PULSE 65; O2SAT 98
--- NOTE | 2025-02-19 12:20 | MHC.OFFVIS ---
Vital Signs 02/19/25 12:20 Height 52 ft Weight 126 lb BMI 0.2 BP 112/57 L Blood Pressure Location Lt brachial Position Sitting Pulse 65 Pulse Oximetry (%) 98 Oxygen Delivery Method Room Air Intake Visit Reasons: Colonoscopy Screening Intake Note: Patient new consult for 1st Colonoscopy Screening Patient cc: acid reflux, abdominal pain, constipation with abdominal bloating. Endless Track Vehicle Mechanic Required: Yes Endless Track Vehicle Mechanic Name: [id number] Accompanied by: Self / Same As Patient Allergies diphenhydramine (From BENADRYL) Allergy (Unknown, Verified 02/19/25 12:20) PALPATATIONS Benadryl Allergy (Unknown, Uncoded 02/04/24 18:56) palpitation Medication List - Last Reconciled 02/19/25 by Lizz Alvarez CNP aspirin 81 mg PO QPM atorvastatin 40 mg PO QAM calcium carbonate-vitamin D3 600 mg-10 mcg (400 unit) 1 tab PO dapagliflozin propanediol (Farxiga) 10 mg PO QAM gabapentin 100 mg PO BEDTIME glipizide ER 10 mg PO QAM glipizide ER 5 mg PO QAM ibuprofen 600 mg PO Q6H PRN lisinopril 20 mg PO QAM loratadine 10 mg PO QAM melatonin 5 mg PO BEDTIME metformin 1,000 mg PO multivitamin 1 tab PO QAM naproxen 500 mg PO BID PRN ondansetron 4 mg PO Q6-8H PRN sertraline 50 mg PO QPM HPI HPI Colonoscopy Screening: Details: Patient is a 59-year-old Filipino speaking female with PMH of hyperlipidemia, hypertension, diabetes. Referred by PCP for pre colonoscopy screening. This will be here first colonoscopy. Pt reports longstanding issues with constipation, with BM occurring every 2?4 days, and sensation of incomplete evacuation. Sx have worsened since cholecystectomy. Pt takes OTC fluids and juices for constipation with partial relief. Describes persistent epigastric discomfort described as heaviness/bothersome feeling after eating, occasional episodes of stinging sensation, and sensation of food ?stuck? in the stomach without significant pain. Associated intermittent nausea, regurgitation noted; denies vomiting. Appetite baseline is low, no significant recent change. Wt noted to fluctuate 3?4 lbs with overall stability in 120?130 lb range. Pt has DM, managed on existing regimen. No family hx colorectal or gastric CA; sibling with hx of soft tissue malignancy and lung mets. No hx prior GI malignancy. Patient denies: fever/chills, vomiting, appetite changes, dysphasia, unintentional wt loss, ab pain or melena/hematochezia. Social hx: -denies ETOH use -denies recreational drug use -non-smoker - family hx as below -denies personal hx of CA -hx of delayed awakening, otherwise tolerated anesthesia in the past without difficulty. PFSH Medical History (Updated 02/19/25 @ 17:28 by Lizz Alvarez CNP) Acid reflux Colon cancer screening Constipation HLD (hyperlipidemia) HTN (hypertension) Diabetes Surgical History Hx of cholecystectomy Family History (Updated 02/19/25 @ 13:03 by Lizz Alvarez CNP) Brother Cancer Social History Alcohol intake: never Patient Tobacco Use Status: Never used Tobacco Gender identity: Female Review of Systems Const Reports as per HPI ENT Reports as per HPI Card Reports as per HPI Resp Reports as per HPI GI Reports as per HPI Reports as per HPI Physical Exam Vital Signs: Last Vital Signs Pulse 65 02/19/25 12:20 BP 112/57 L 02/19/25 12:20 Pulse Ox 98 02/19/25 12:20 Oxygen Delivery Method Room Air 02/19/25 12:20 BMI result Body Mass Index 0.2 Const General: healthy appearing, no acute distress and well developed Nutritional Appearance: average body habitus Orientation/consciousness: patient oriented x3 HEENT Head: Yes normal to inspection, Yes normocephalic and Yes atraumatic Face and sinus: Yes normal facial exam Eyes General: appearance normal, both eyes and all related structures Neck Neck: Yes normal visual inspection Resp Effort & Inspection: normal respiratory effort, able to speak in complete sentences, no tracheal deviation and symmetric chest movement Cardio Jugular venous distension: no JVD GI Inspection: Yes normal to inspection and No distended Palpation (GI): Soft to palpation, not firm, nontender and No hepatosplenomegaly present Auscultation: normal bowel sounds Neuro General: patient oriented x3 Gait exam (Neuro): Normal gait present Psych Appearance: grossly normal Mental Status: mental status grossly normal Speech and movement: Normal speech and movement present Affect: normal affect Attitude: cooperative Thought process: Normal thought process present Thought content: Normal thought content present Insight: Good insight present (Psych) Judgement: Good judgement present (Psych) Assessment & Plan Assessment & Plan (1) Colon cancer screening: Code(s): Z12.11 - Encounter for screening for malignant neoplasm of colon Category: Medical Plan: Age-appropriate screening due; sx suggest upper and lower GI eval warranted. Additional Testing: - Schedule colonoscopy and EGD. Medication Management: - As above (bowel regimen to optimize prep quality). Lifestyle Recommendations: - Review bowel prep instructions at subsequent visit. Follow-Up: - FU as above for results/review. (2) Constipation: Code(s): K59.00 - Constipation, unspecified Category: Medical Qualifiers: Constipation type: unspecified constipation type Qualified Code(s): K59.00 - Constipation, unspecified Plan: Pt reports long-term GI discomfort/constipation, worsened post-cholecystectomy, with mild upper GI sx; no alarm features but chronic course. Additional Testing: - Scheduled for screening colonoscopy with recommendation for concurrent EGD (upper endoscopy). - TSH to r/o hypothyroidism contributing to constipation. - Routine lab panel per PCP orders. Medication Management: - Initiate Miralax daily for constipation. - Add docusate sodium (stool softener) qHS. - Continue Zofran prn for nausea if needed. Lifestyle Recommendations: - Continue increased fluid intake. - Encourage regular dietary fiber (as tolerated). - Maintain activity as tolerated. Follow-Up: - FU in GI clinic in 6 weeks to assess response to bowel regimen and prep for endoscopy procedures (3) Acid reflux: Code(s): K21.9 - Gastro-esophageal reflux disease without esophagitis Category: Medical Qualifiers: Esophagitis presence: esophagitis presence not specified Qualified Code(s): K21.9 - Gastro-esophageal reflux disease without esophagitis Plan: Reports regurgitation, epigastric discomfort, and stinging sensation, consistent with reflux symptoms Additional Testing: - EGD to assess for esophagitis or other mucosal disease Medication Management: - Consider empiric trial of acid suppression (PPI or H2RA) if symptoms persist or worsen prior to EGD Lifestyle Recommendations: - Advise small, frequent meals - Avoid late-night eating, caffeine, and trigger foods as tolerated - Elevate head of bed if nocturnal symptoms Follow-Up: - Reassess at 6-week FU or sooner if symptoms worsen Plan Follow-up in 6 weeks or sooner as needed Time: I spent a total of 45 minutes on the date of encounter which includes: Preparing to see the patient (reviewed previous documentation, test results and medical history) Performing a medically appropriate exam and/or evaluation Ordering medications, tests, and procedures Documenting clinical information in the health record Orders: Orders TSH reflex Free T4 Today K59.00 - Constipation, unspecified Referrals GI Procedure Notification K21.9 - Gastro-esophageal reflux disease without esophagitis, Z12.11 - Encounter for screening for malignant neoplasm of colon Medications: New polyethylene glycol 3350 (Miralax) Take 17G (one cap full) daily with 8oz of water 17 grams PO DAILY 510 grams 2RF constipation 30 days docusate sodium Take one tablet at bedtime 100 mg PO BEDTIME 90 caps 1RF constipation Coding Level of Care Code New Pt New Pt Level 4 (37215) Patient Type New Diagnoses Colon cancer screening Z12.11 Constipation, unspecified constipation type K59.00 Constipation type: unspecified constipation type Gastroesophageal reflux disease, unspecified whether esophagitis present K21.9 Esophagitis presence: esophagitis presence not specified
--- OUTSIDE RECORDS SUMMARY | 2025-02-19 13:47 | XMS_ITS | Encounter Summary ---
Author Organization [employer] Address [address] [facility] [address] [place] [address] Care Team Providers Care Repossession Agent Name Role Phone Name, Weston FLOWER Primary Care Provider [phone] Chanel Mark PharmD Unavailable [phone] Reason for Visit * Reason Comments Med Refill Encounter Details Date Type Department Care Team ([facility] st Contact Info) Description 09/11/2023 Refill [facility] [address] [place] [address] Chanel Mark, PharmD [address] [place] [address] Type 2 diabetes mellitus without complication, without long-term current use of insulin ([facility]) Social History Tobacco Use Types Packs/Day Years Used Date Smoking Tobacco: Never Passive Smoke Exposure: Never Smokeless Tobacco: Never Alcohol Use Standard Drinks/Week Comments Never 0 (1 standard drink = 0.6 oz pur e alcohol) Depression Answer Date Recorded Patient Health Questionnaire-9 Score 13 08/08/2023 Patient Health Questionnaire-9 Score 13 08/08/2023 Last PHQ-9: Questionnaire Data Not on file 0 08/08/2023 Housing Stability Answer Date Recorded What is your housing situation today? I do not have housing (Staying with others, in a hotel, in a halfway, living outside on the street, on a beach, in a car, or in a park 08/15/[address] you li ve. Do you have problems with any of the following? None of the above 08/15/2023 Food Insecurity Answer Date Recorded Within the past 12 months, y ou worried that your food would run out before you got money to buy more: Sometimes True 2023 Within the past 12 months,th e food you bought just didn't last and you didn't have enough money to get more: Sometimes True 08/15/2023 Transportation Answer Date Recorded In the past [...] Answer Date Recorded Patient Health Questionnaire-2 Score 4 08/08/2023 Comments Unknown Sex and Gender Information Value Date Recorded Sex Assigned at Female 03/21/2022 10:14 AM EDT Legal Sex Female 10:14 AM EDT Gender Identity Female 11/12/2024 12:55 PM EDT Sexual Orientation Straight 03/21/2022 10 :14 AM EDT documented as of this encounter Plan of Treatment Upcoming Encounters Date Type Department Care Team (Late st Contact Info) Description 03/11/2025 2:00 PM EDT Medication Management [facility] [address] [place] [phone] Chanel Mark, PharmD [address] [place] [phone] 03/24/2025 2:30 PM EST Office Visit [facility] [address] [place] [phone] Name, MD Weston [address] [place] [phone] 05/28/2025 10:15 AM EST Office Visit [facility] ADULT DENTAL [address] [place] [phone] Deborah Barajas [address] [place] [address] documented as of this encounter Goals Goal Patient Goal Type Associated Problems Recent Progress Patient-Stated? Author Hemoglobin A1c < 7 Result Component 8.3( 12:08 PM EDT) No Chanel Mark, PharmD Record your blood sugar as directed Result Component No Chanel Mark, PharmD Note: Continue to check FBG, change PM testing time to ~2 hrs post dinner to aid in med titration. documented as of this encounter Visit Diagnoses Diagnosis Type 2 diabetes mellitus without complication, without long-term current use of insulin (HCC) documented in this encounter Additional Health Concerns Assessment Noted Time PHQ-9 Depression Total Score: 13 024 2:51 PM EDT documented as of this encounter Care Teams Repossession Agent Relationship Specialty Start Date End Date Name, MD Weston [address] [place] [address] PCP - General Family Medicine 07/24/15 Chanel Mark PharmD [address] [place] [address] Pharmacist Internal Medicine 04/04/22 Silver Contreras Sandwich PeddlerDoor Manager 04/20/23 documented as of this encounter
--- OUTSIDE RECORDS SUMMARY | 2025-02-19 13:47 | XMS_ITS | Encounter Summary ---
Author Organization [employer] Address [address] [facility] 7[address] [place] [address] Care Team Providers Care Track Walker Name Role Phone Name, Weston FLOWER Primary Care Provider [phone] Chanel Mark PharmD Unavailable [phone] Encounter Details Date Type Department Care Team (Late st Contact Info) Description 05/18/2023 Abstract [facility] ADULT DENTAL [address] [place] [address] Karl, Deborah [address] [place] [address] Social History Tobacco Use Types Packs/Day Years [...] t he electric, gas, oil or water [employer] threatened to shut off services in your [...] Description 03/11/2025 2:00 PM EDT Medication Management [facility] [address] [place] [phone] Chanel Mark, PharmD [address] [place] [phone] 03/24/2025 2:30 PM EST Office Visit [facility] [address] [place] [phone] NameWeston MD [address] [place] [address] 05/28/2025 10:15 AM EST Office Visit [facility] ADULT DENTAL [address] [place] [phone] KarlKurtisDeborah [address] [place] [address] documented as of this encounter Goals Goal Patient Goal Type Associated Problems Recent Progress Patient-Stated? Author Hemoglobin A1c < 7 Result Component 8.3( 12:08 PM EDT) No Chanel Mark, PharmD Record your blood sugar as directed Result Component No Anam Markyssa, PharmD Note: Continue to check FBG, change PM testing time to ~2 hrs post dinner to aid in med titration. documented as of this encounter Visit Diagnoses Not on filedocumented in this encounter Additional Health Concerns Assessment Noted Time PHQ-9 Depression Total Score: 17 023 9:08 AM EDT documented as of this encounter Care Teams Track Walker Relationship Specialty Start Date End Date NameWeston MD [address] [place], [place] [phone] PCP - General Family Medicine 07/24/15 Chanel Mark PharmD [address] [place], [place] [phone] Pharmacist Internal Medicine 04/04/22 Silver Contreras Clerical GraderPaper Bags Sewing Machine Operator 04/20/23 documented as of this encounter
--- OUTSIDE RECORDS SUMMARY | 2025-02-19 13:47 | XMS_ITS | Encounter Summary ---
Author Organization [employer] Address [address] [facility] [address] [place] [address] Care Team Providers Care File System Installer Name Role Phone Name, Weston FLOWER Primary Care Provider [phone] Chanel Mark PharmD Unavailable [phone] Reason for Visit * Reason Comments Med Refill Encounter Details Date Type Department Care Team ([facility] st Contact Info) Description 07/02/2024 Refill [facility] [address] [place] [address] Neelam Castillo DO [address] [place] [address] Diabetes mellitus type 2 with complications ([facility]/HCC) Social History Tobacco Use Types Packs/Day Years Used Date Smoking Tobacco: Never Passive Smoke Exposure: Never Smokeless Tobacco: Never Alcohol Use Standard Drinks/Week Comments Never 0 (1 standard drink = 0.6 oz pur e alcohol) Alcohol Answer Date Recorded Frequency of Alcohol Consumption Not on file 12/27/2023 Average Number of Drinks Not on file 024 Frequency of Binge Drinking Not on file 11/2023 Score 0 12/27/2023 Depression Answer Date Recorded Patient Health Questionnaire-9 Score 13 08/08/2023 Patient Health Questionnaire-9 Score 13 08/08/2023 Last PHQ-9: Questionnaire Data Not on file 0 08/08/2023 Housing Stability Answer Date Recorded What is your housing situation today? I do not have housing (Staying with others, in a hotel, in a assisted, living outside on the street, on a [...] Patient Health Questionnaire-2 Score 4 08/08/2023 Comments No Sex and Gender Information Value Date Recorded Sex Assigned at Female 03/21/2022 10:14 AM EDT Legal Sex Female 10:14 AM EDT Gender Identity Female 11/12/2024 12:55 PM EDT Sexual Orientation Straight 03/21/2022 10 :14 AM EDT documented as of this encounter Plan of Treatment Upcoming Encounters Date Type Department Care Team (Late st Contact Info) Description 03/11/2025 2:00 PM EDT Medication Management [facility] [address] [place] [phone] Chanel Mark, PharmD [address] [place] [phone] 03/24/2025 2:30 PM EST Office Visit [facility] [address] [place] [phone] Name, MD Weston [address] [place] [phone] 05/28/2025 10:15 AM EST Office Visit [facility] ADULT DENT[facility] [address] [place] [phone] Deborah Barajas [address] [place] [address] documented as of this encounter Goals Goal Patient Goal Type Associated Problems Recent Progress Patient-Stated? Author Hemoglobin A1c < 7 Result Component 8.3(09/22/202 5 12:08 PM EDT) No Chanel Mark PharmD Record your blood sugar as directed Result Component No Chanel Mark PharmD Note: Continue to check FBG, change PM testing time to ~2 hrs post dinner to aid in med titration. documented as of this encounter Visit Diagnoses Diagnosis Diabetes mellitus type 2 with complications (HCC) documented in this encounter Additional Health Concerns Assessment Noted Time PHQ-9 Depression Total Score: 13 024 2:51 PM EDT documented as of this encounter Care Teams File System Installer Relationship Specialty Start Date End Date Name, MD Weston [address] [place] [address] PCP - General Family Medicine 07/24/15 Chanel Mark PharmD [address] [place] [address] Pharmacist Internal Medicine 04/04/22 Silver Contreras School Transportation DirectorAutoclave Operator 04/20/23 documented as of this encounter
--- OUTSIDE RECORDS SUMMARY | 2025-02-19 13:47 | XMS_ITS | Encounter Summary ---
Author Organization [employer] Address [address] [facility] 7t [place] [address] Care Team Providers Care Delivery Agent Name Role Phone Name, Weston FLOWER Primary Care Provider Chanel Mark PharmD Unavailable [phone] Encounter Details Date Type Department Care Team ([facility] st Contact Info) Description 03/03/2023 Abstract [facility] ADULT DENTAL [address] [place] [address] Meghana Vines DDS [address] [place], [place] [phone] Social History Tobacco Use Types Packs/Day Years [...] worried about losing housing in the future 02/28/[address] you li ve. Do you have problems with any of the following? None of the above 02/28/2023 Food Insecurity Answer Date Recorded Within the past 12 months, y ou worried that your food would run out before you got money to buy more: Never True 02/28/2023 Within the past 12 months,th e food you bought just didn't last and you didn't have enough money to get more: Never True 02/2023 Transportation Answer Date Recorded In the past 12 months, has l ack of transportation kept you from medical appts, meetings, work or from getting things needed for daily living? No 02/28/2023 Utilities Answer Date Recorded In the past 12 months, has t he electric, gas, oil or water company threatened to shut off services in your home? No 02/28/2023 Depression Answer Date Recorded Patient Health Questionnaire-2 [...] Description 03/11/2025 2:00 PM EDT Medication Management [facility] [address] [place] [phone] Chanel Mark PharmD [address] [place] [phone] 03/24/2025 2:30 PM EST Office Visit [facility] [address] [place] [phone] Name, MD Weston [address] [place] [phone] 05/28/2025 10:15 AM EST Office Visit [facility] ADULT DENTAL [address] [place] [phone] KarlDeborah [address] [place] [address] documented as of this encounter Goals Goal [...] documented as of this encounter Care Teams Delivery Agent Relationship Specialty Start Date End Date Name, MD Weston [address] [place] [address] PCP - General Family Medicine 07/24/15 Chanel Mark PharmD [address] [place] [address] Pharmacist Internal Medicine 04/04/22 Silver Contreras Supervisor Stave FinishingPatternmaker Apprentice Wood 04/20/23 documented as of this encounter
--- OUTSIDE RECORDS SUMMARY | 2025-02-19 13:47 | XMS_ITS | Encounter Summary ---
Author Organization [employer] Address [address] [facility] 7t [place] [address] Care Team Providers Care Bog Worker Name Role Phone Name, Weston FLOWER Primary Care Provider [phone] Chanel Mark PharmD Unavailable [phone] Encounter Details Date Type Department Care Team (Latest Contact Info) Description 12/08/2020 Abstract [facility] Dental, Provider, DDS Social History Tobacco Use Types Packs/Day Years Used Date Smoking Tobacco: Never Assessed Comments Unknown Sex and Gender Information Value Date Recorded Sex Assigned at Female 03/21/2022 10:14 AM EDT Legal Sex Female 10:14 AM EDT Gender Identity Female 11/12/2024 12:55 PM EDT Sexual Orientation Straight 03/21/2022 10 :14 AM EDT documented as of this encounter Plan of Treatment Upcoming Encounters Date Type Department Care Team ( st Contact Info) Description 03/11/2025 2:00 PM EDT Medication Management [facility] [address] [place] [phone] Chanel Mark, PharmD [address] [place] [address] 03/24/2025 2:30 PM EST Office Visit [facility] [address] [place] [phone] Name, MD Weston [address] [place] [address] 05/28/2025 10:15 AM EST Office Visit [facility] ADULT DENTAL [address] [place] [address] Deborah Barajas [address] [place] [address] documented as of this encounter Visit Diagnoses Not on filedocumented in this encounter Care Teams Bog Worker Relationship Specialty Start Date End Date Name, MD Weston [address] [place], [place] [phone] PCP - General Family Medicine 07/24/15 Chanel Mark, Connie [address] [place] [address] Pharmacist Internal Medicine 04/04/22 Silver Contreras Therapy AssistantBasin Finish Operator Tig Welder 04/20/23 documented as of this encounter
--- OUTSIDE RECORDS SUMMARY | 2025-02-19 13:47 | XMS_ITS | Encounter Summary ---
Author Organization [employer] Address [address] [facility] 7t [place] [address] Care Team Providers Care Historian Research Assistant Name Role Phone Name, Weston FLOWER Primary Care Provider [phone] Chanel Mark PharmD Unavailable [phone] Reason for Visit * Reason Comments Med Refill Encounter Details Date Type Department Care Team ([facility] st Contact Info) Description 01/03/2024 Refill [facility] [address] [place] [address] Chanel Mark, PharmD [address] [place] [address] Type 2 diabetes mellitus with hyperglycemia, without long-term current use of insulin ([facility]) Social History Tobacco Use Types Packs/Day Years [...] with others, in a hotel, in a fpc, living outside on the street, on a [...] Description 03/11/2025 2:00 PM EDT Medication Management [facility] [address] [place] [address] Chanel Mark, PharmD [address] [place] [address] 03/24/2025 2:30 PM EST Office Visit [facility] [address] [place] [address] Name, MD Weston [address] [place] [address] 05/28/2025 10:15 AM EST Office Visit [facility] ADULT DENTAL [address] [place] [phone] Deborah Barajas [address] [place] [address] documented as of this encounter Goals Goal Patient Goal Type Associated Problems Recent Progress Patient-Stated? Author Hemoglobin A1c < 7 Result Component 8.3( 5 12:08 PM EDT) No Chanel Mark PharmD Record your blood sugar as directed Result Component No Chanel Mark PharmD Note: Continue to check FBG, change PM testing time to ~2 hrs post dinner to aid in med titration. documented as of this encounter Visit Diagnoses Diagnosis Type 2 diabetes mellitus with hyperglycemia, without long-term current use of insulin (HCC) documented in this encounter Additional Health Concerns Assessment Noted Time PHQ-9 Depression Total Score: 13 024 2:51 PM EDT documented as of this encounter Care Teams Historian Research Assistant Relationship Specialty Start Date End Date Name, MD Weston [address] [place] [address] PCP - General Family Medicine 07/24/15 Chanel Mark PharmD [address] [place] [address] Pharmacist Internal Medicine 04/04/22 Silver Contreras Immigration OfficerLicensed Architect 04/20/23 documented as of this encounter
--- OUTSIDE RECORDS SUMMARY | 2025-02-19 13:47 | XMS_ITS | Encounter Summary ---
Author Organization [employer] Address [address] [facility] 7t [place] [address] Care Team Providers Care Snaker Tractor Driver Name Role Phone Name, Weston FLOWER Primary Care Provider [phone] Chanel Mark PharmD Unavailable [phone] Reason for Visit * Reason Onset Date Comments Referral 01/31/2025 Encounter Details Date Type Department Care Team ([facility] st Contact Info) Description 01/31/2025 Telephone [facility] [address] [place], [place] [phone] Name, MD Weston [address] [place] [address] Referral Social History Tobacco Use Types Packs/Day Years [...] with others, in a hotel, in a longterm, living outside on the street, on a [...] Answer Date Recorded Patient Health Questionnaire-2 Score 3 11/12/2024 Comments No Sex and Gender Information Value Date Recorded Sex Assigned at Female 03/21/2022 10:14 AM EDT Legal Sex Female 10:14 AM EDT Gender Identity Female 11/12/2024 12:55 PM EDT Sexual Orientation Straight 03/21/2022 10 :14 AM EDT documented as of this encounter Miscellaneous Notes * Telephone Encounter - Mayra Franco RN - 02/03/2025 11:41 AM EDT T/C to pt via S Exhibit Preparator Cornelio #[id number]. Pt confirms that she would like a new vascular referral. States she does not want to be seen at [facility]. States she has no specific office in mind but heard there was a vein specialist in [place]. Pt c/o intermittent 6-/7/10 pain to BLE d/t varicoseveins. Report more painful than when previously evaluated. Recommended in person evaluation for assessment. Pt states she cannot come in today as her niece has covid-19. States she has so far tested negative for covid 19. Reviewed WIC availability. Advised request for referral will be sent to pcp for review. * Telephone Encounter - Janine Gurpreet Khan - 01/31/2025 10:03 AM EDT TC from [place], Pharmacist Technician with [employer], requesting a new referral for vascular surgery. Pt does not wants to be seen in [facility] Contact [place] at [phone] Or pt [phone] (need prescription clerk lenses) documented in this encounter Plan of Treatment Upcoming Encounters Date Type Department Care Team ([facility] st Contact Info) Description 03/11/2025 2:00 PM EDT Medication Management [facility] [address] [place] [address] Chanel Mark, PharmD [address] [place] [address] 03/24/2025 2:30 PM EST Office Visit [facility] [address] [place] [address] NameWeston MD [address] [place] [address] 05/28/2025 10:15 AM EST Office Visit [facility] ADULT D[facility] [address] [place] [address] Karl, Deborah [address] [place] [address] documented as of this encounter Goals Goal [...] documented as of this encounter Care Teams Snaker Tractor Driver Relationship Specialty Start Date End Date NameWeston MD [address] [place] [address] PCP - General Family Medicine 07/24/15 Chanel Mark, PharmD [address] [place] [address] Pharmacist Internal Medicine 04/04/22 Silver Contreras Accredited Legal SecretaryCommissary Officer 04/20/23 documented as of this encounter
--- OUTSIDE RECORDS SUMMARY | 2025-02-19 13:47 | XMS_ITS | Encounter Summary ---
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) [...] Description 03/11/2025 2:00 PM EDT Medication Management [facility] [address] [place] [address] Chanel Mark PharmD [address] [place] [address] 03/24/2025 2:30 PM EST Office Visit [facility] [address] [place] [address] Name, MD Weston [address] [place] [address] 05/28/2025 10:15 AM EST Office Visit [facility] ADULT DENTAL [address] [place] [phone] Deborah Barajas [address] [place] [address] documented as of this encounter Goals Goal Patient Goal Type Associated Problems Recent Progress Patient-Stated? Author Hemoglobin A1c < 7 Result Component 8.3( 12:08 PM EDT) No Chanel Mark PharmD [...] Noted Time PHQ-9 Depression Total Score: 17 03/27/2 023 9:08 AM EDT documented as of this encounter Care Teams Emu Farmer Relationship Specialty Start Date End Date Name, MD Weston [address] [place] [address] PCP - General Family Medicine 07/24/15 Chanel Mark, Connie [address] [place] [address] Pharmacist Internal Medicine 04/04/22 Silver Contreras Film Processing Shift SupervisorLocal Company Intermodal Truck Driver 04/20/23 documented as of this encounter
--- OUTSIDE RECORDS SUMMARY | 2025-02-19 13:47 | XMS_ITS | Encounter Summary ---
Author Organization [employer] Address [address] [facility] 7t [place] [address] Care Team Providers Care Executive Communications Manager Name Role Phone Name, Weston FLOWER Primary Care Provider [phone] Chanel Mark PharmD Unavailable [phone] Reason for Visit * Reason Comments Med Refill Encounter Details Date Type Department Care Team ([facility] st Contact Info) Description 03/26/2023 Refill [facility] [address] [place] [address] Chanel Mark, PharmD [address] [place] [address] Diabetes mellitus type 2 with complications ([facility]) Social History Tobacco Use [...] Description 03/11/2025 2:00 PM EDT Medication Management [facility] [address] [place] [phone] Chanel Mark PharmD [address] [place] [address] 03/24/2025 2:30 PM EST Office Visit [facility] [address] [place] [phone] Name, MD Weston [address] [place] [address] 05/28/2025 10:15 AM EST Office Visit [facility] ADULT DENT[facility] [address] [place] [phone] Deborah Barajas [address] [place] [address] documented as of this encounter Goals Goal [...] documented as of this encounter Care Teams Executive Communications Manager Relationship Specialty Start Date End Date Name, MD Weston [address] [place] [address] PCP - General Family Medicine 07/24/15 Chanel Mark PharmD [address] [place] [address] Pharmacist Internal Medicine 04/04/22 Silver Contreras Industrial Cleaning TechnicianTrain Gate Attendant 04/20/23 documented as of this encounter
--- OUTSIDE RECORDS SUMMARY | 2025-02-19 13:47 | XMS_ITS | Encounter Summary ---
Author Organization [employer] Address [address] [facility] 7t [place] [address] Care Team Providers Care Architectural Designer Name Role Phone Name, Weston FLOWER Primary Care Provider [phone] Chanel Mark PharmD Unavailable [phone] Encounter Details Date Type Department Care Team (Late st Contact Info) Description 03/14/2023 Abstract [facility] ADULT DENTAL [address] [place] [address] Karl, Deborha [address] [place] [address] Social History Tobacco Use Types Packs/Day Years [...] t he electric, gas, oil or water [employer] threatened to shut off services in your [...] Description 03/11/2025 2:00 PM EDT Medication Management [facility] [address] [place] [address] Chanel Mark, PharmD [address] [place] [address] 03/24/2025 2:30 PM EST Office Visit [facility] [address] [place] [phone] NameWeston MD [address] [place] [address] 05/28/2025 10:15 AM EST Office Visit [facility] ADULT D[facility] [address] [place] [address] KarlKurtisDeborah [address] [place] [address] documented as of this encounter Goals Goal [...] documented as of this encounter Care Teams Architectural Designer Relationship Specialty Start Date End Date NameWeston MD [address] [place], [place] [phone] PCP - General Family Medicine 07/24/15 Chanel Mark PharmD [address] [place], [place] [phone] Pharmacist Internal Medicine 04/04/22 Silver Contreras Online Media DirectorChair Inspector And Leveler 04/20/23 documented as of this encounter
--- OUTSIDE RECORDS SUMMARY | 2025-02-19 13:47 | XMS_ITS | Encounter Summary ---
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) [...] Description 03/11/2025 2:00 PM EDT Medication Management [facility] [address] [place] [phone] Chanel Mark PharmD [address] [place] [address] 03/24/2025 2:30 PM EST Office Visit [facility] [address] [place] [address] Name, MD Weston [address] [place] [address] 05/28/2025 10:15 AM EST Office Visit [facility] ADULT DENTAL [address] [place] [address] Deborah Barajas [address] [place] [address] documented as of this encounter Goals Goal [...] documented as of this encounter Care Teams Wool Hat Flanger Relationship Specialty Start Date End Date Name, MD Weston [address] [place] [address] PCP - General Family Medicine 07/24/15 Chanel Mark PharmD [address] [place] [address] Pharmacist Internal Medicine 04/04/22 Silver Contreras Order RunnerProgramming Coordinator 04/20/23 documented as of this encounter
--- OUTSIDE RECORDS SUMMARY | 2025-02-19 13:47 | XMS_ITS | Clinical Summary ---
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 Comment:Desirable HDL: great er than 40 mg/dL Note: This HDL assay may give artificially low results in patients with liver disease. Blood Venous blood specimen / Unknown 12/19/2023 9:45 AM EDT 12/19/2023 11:27 AM EDT us Weston Name LAB BLOOD ORDERABLES Final Resul t Performing Organization Address [facility]/ZIP Co de Phone Number [facility] [address] [place] [address] [phone] * Albumin, Random Urine W/Creatinine (01/12/2023 10:38 AM EDT) Creatinine, Urine 78.03 mg/dL [facility] Microalbumin Urine 5.0 mg/L [facility] Microalbum Creatinine Ratio Ur 6.4 <30 ug/mg cr [facility] Comment:Albumin/Creatinine R atio Reference Ranges: Normal: < 30 ug/mg creatinine Microalbuminuria: 30 - 300 ug/mg creatinineClinical Albuminuria: > 300 ug/mg creatinine 01/12/2023 10:3 8 AM EDT 01/12/2023 11:31 AM EDT us Weston Lagunas MD LAB URINE ORDERABLES Final Resul t [facility] [address] [place] [address] [phone] from Last 3 Months or Most Recently Relevant to Health Maintenance Insurance C3 D[facility]AL[facility] MEDICAID STAND ADULT Care Teams Real Time Operator Relationship Specialty Start Date End Date Name, MD Weston [address] [place] [address] PCP - General Family Medicine 07/24/15 Chanel Mark, PrasanthD [address] [place] [address] Pharmacist Internal Medicine 04/04/22 Silver Contreras Clinic ReceptionistTraining Development Manager 04/20/23
--- OUTSIDE RECORDS SUMMARY | 2025-02-19 13:47 | XMS_ITS | Encounter Summary ---
Author Organization [employer] Address [address] [place] [address] 7[address] [place] [address] Care Team Providers Care Counter Clerk Tractor Parts Name Role Phone Name, Weston FLOWER Primary Care Provider [phone] PuChanel guadarrama PharmD Unavailable [phone] Reason for Visit * Reason Comments Med Refill Encounter Details Date Type Department Care Team (Late st Contact Info) Description 12/02/2022 Refill [facility] [address] [place] [address] Name, MD Weston [address] [place] [address] Diabetes mellitus type 2 with complications ([facility]) Social History Tobacco Use Types Packs/Day Years Used Date Smoking Tobacco: Never Passive Smoke Exposure: Never Smokeless Tobacco: Never Depression Answer Date Recorded Patient Health Questionnaire-9 Score 17 08/15/2022 Depression Answer Date Recorded Patient Health Questionnaire-2 [...] EDT Medication Management [facility] [address] [place] [address] Puia, Chanel, PharmD [address] [place] [address] 03/24/2025 2:30 PM EST Office Visit [facility] [address] [place] [address] Name, MD Weston [address] [place] [address] 05/28/2025 10:15 AM EST Office Visit [facility] ADULT DENTAL [address] [place], [place] [phone] Deborah Barajas [address] [place] [address] documented as of this encounter Goals Goal [...] documented as of this encounter Care Teams Counter Clerk Tractor Parts Relationship Specialty Start Date End Date Name, MD Weston [address] [place] [address] PCP - General Family Medicine 07/24/15 Chanel Mark, PharmD [address] [place] [address] Pharmacist Internal Medicine 04/04/22 Silver Contreras Canvas MarkerAgricultural Produce Packer 04/20/23 documented as of this encounter
--- OUTSIDE RECORDS SUMMARY | 2025-02-19 13:47 | XMS_ITS | Encounter Summary ---
Author Organization [employer] Address 75 [facility] 7t [place] [address] Care Team Providers Care Home Care Physical Therapist Name Role Phone Name, Weston FLOWER Primary Care Provider [phone] Chanel Mark PharmD Unavailable [phone] Reason for Visit * Reason Comments Med Refill Encounter Details Date Type Department Care Team ([facility] st Contact Info) Description 05/26/2024 Refill [facility] [address] [place] [address] Name, MD Weston [address] [place] [address] 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) [...] with others, in a hotel, in a long term, living outside on the street, on a [...] Description 03/11/2025 2:00 PM EDT Medication Management [facility] [address] [place] [address] Chanel Mark, PharmD [address] [place] [address] 03/24/2025 2:30 PM EST Office Visit [facility] [address] [place] [address] Name, MD Weston [address] [place] [address] 05/28/2025 10:15 AM EST Office Visit [facility] ADULT DENTAL [address] [place] [address] Deborah Barajas [address] [place] [address] documented as of this encounter Goals Goal [...] documented as of this encounter Care Teams Home Care Physical Therapist Relationship Specialty Start Date End Date Name, MD Weston [address] [place] [address] PCP - General Family Medicine 07/24/15 Chanel Mark PharmD [address] [place] [address] Pharmacist Internal Medicine 04/04/22 Silver Contreras Graduate EngineerReal Estate Processor 04/20/23 documented as of this encounter
--- OUTSIDE RECORDS SUMMARY | 2025-02-19 13:48 | XMS_ITS | Encounter Summary ---
Author Organization [employer] Address [address] [facility] 7t [place] [address] Care Team Providers Care Java Developer Consultant Name Role Phone Name, Weston FLOWER Primary Care Provider [phone] Chanel Mark PharmD Unavailable [phone] Reason for Visit * Reason Comments Med Refill Encounter Details Date Type Department Care Team ([facility] st Contact Info) Description 03/30/2023 Refill [facility] [address] [place] [address] Name, MD Weston [address] [place] [address] Heartburn Social History Tobacco Use Types Packs/Day Years [...] Description 03/11/2025 2:00 PM EDT Medication Management [facility] MED[facility]INE [address] [place] [address] Chanel Mark, PharmD [address] [place] [address] 03/24/2025 2:30 PM EST Office Visit [facility] MED[facility]INE [address] [place] [phone] Name, MD Weston [address] [place] [address] 05/28/2025 10:15 AM EST Office Visit [facility] ADULT DENTAL [address] [place] [address] KarlDeborah felder [address] [place] [address] documented as of this encounter Goals Goal [...] as of this encounter Visit Diagnoses Diagnosis Heartburn documented in this encounter Additional Health Concerns Assessment Noted Time PHQ-9 Depression Total Score: 17 023 9:08 AM EDT documented as of this encounter Care Teams Java Developer Consultant Relationship Specialty Start Date End Date Name, MD Weston [address] [place] [address] PCP - General Family Medicine 07/24/15 Chanel Mark, Connie [address] [place] [address] Pharmacist Internal Medicine 04/04/22 Silver Contreras Trimmer SorterManager Enterprise 04/20/23 documented as of this encounter
== END 2025-02-19 13:11 | disposition home or self-care (01) ==
LOC: HO.HGI 12:19
PROVIDERS: PCP Internal Medicine Geriatric Medicine; Visit Provider Nurse Practitioner Family
DX: Z01.818 Encounter for other preprocedural examination (principal); Z12.11 Encounter for screening for malignant neoplasm of colon; K59.00 Constipation, unspecified; K21.9 Gastro-esophageal reflux disease without esophagitis
CPT/HCPCS: 99204

== ENCOUNTER → 2025-02-19 12:17 | Outpatient (BNVA) | payer MEDICAID, SELFPAY | PROVIDERS: PCP Internal Medicine Geriatric Medicine; Visit Provider Nurse Practitioner Family | DX: Z12.11 Encounter for screening for malignant neoplasm of colon (principal); K21.9 Gastro-esophageal reflux disease without esophagitis; K59.00 Constipation, unspecified | CPT/HCPCS: 99212 ==

== ENCOUNTER 2025-03-19 10:41 | Outpatient (REF) | payer MEDICAID, SELFPAY ==
--- OUTSIDE RECORDS SUMMARY | 2025-03-19 10:30 | XMS_ITS | Encounter Summary ---
Author Organization [employer] Address [address] [facility] 7t [place] [address] Care Team Providers Care Asset Card Clerk Name Role Phone Name, Weston FLOWER Primary Care Provider [phone] Chanel Mark PharmD Unavailable [phone] Reason for Visit * Reason Comments Dentures Broken claps on left side and adjustment of the lower partial Encounter Details Date Type Department Care Team ([facility] st Contact Info) Description 03/19/2025 10:30 AM EDT Office Visit [facility] ADULT DENTAL [address] [place] [address] Meghana Vines DDS [address] [place] [address] Fracture of denture (Primary Dx) Social History Tobacco Use Types Packs/Day Years [...] with others, in a hotel, in a half-way, living outside on the street, on a [...] AM EDT documented as of this encounter Progress Notes * Meghana Vines DDS - 03/19/2025 10:30 AM EDT Patient ID: Pepper Rothman is a 59 y.o. female. Time Out: Timeout Date: 03/19/25, Timeout Time: 1006 (lower partial adjustment) Location: [facility] Tooth: Mandible Procedure: Dentures repair Verified the above with patient, sourcing assistant, and provider. Confirmed via patient's chart, intraorally and by radiographs. Lapel Padder Blindstitch: not applicable Chief Complaint Patient presents with Dentures Broken claps on left side and adjustment of the lower partial Medical Hx: Vitals: There were no vitals taken for this visit. Medications, Med Hx reviewed with patient and updated in chart. Consent Obtained: The risks, benefits, indications, potential complications, and alternatives were explained to the patient and informed consent was obtained with good understanding. Treatment Provided: Dental procedures in this visit D5750.1 - DENTURE IMPRESSION (Completed) Service provider: Meghana Vines DDS Billing provider: Meghana Vines DDS Impression taken with [place] of Mandible Case sent to lab to add and repair lower clasps. Lab used: [facility] Lab Due Date: 03/21/2025 Patient discharged alert, oriented, and in stable condition. NV: Delivery repair- Dr. Garcia Hog Confinement System Manager: Amador Farley Dentist: Meghana Vines DDS documented in this encounter Plan of Treatment Upcoming Encounters Date Type Department Care Team (Late st Contact Info) Description 03/21/2025 1:30 PM EDT Office Visit [facility] ADULT DENTAL [address] [place] [address] Noe Garcia, JARED [address] [place] [address] 03/24/2025 2:30 PM EST Office Visit [address] [address] Name, MD Weston [address] [place] [address] 05/08/2025 1:00 PM EST Medication Management [address] [address] PuiaChanel, PharmD [address] [place] [address] 09/11/2025 1:30 PM EDT Office Visit [facility] ADULT DENTAL [address] [place] [address] Bria Sanz Scheduled Orders Name Type Priority Associated Diagnoses Orde r Schedule 26 26 ADD CLASP TO EXISTING PARTIAL DENTURE - PER TOOTH Dental Routine 1 Occurrence s starting 03/19/2025 23 23 ADD CLASP TO EXISTING PARTIAL DENTURE - PER TOOTH Dental Routine 1 Occurrence s starting 03/19/2025 DENTAL LAB DENTURES AND PARTIALS Dental Routine Ordered: 025 documented as of this encounter Goals Goal [...] med titration. documented as of this encounter Procedures Procedure Name Priority Date/Time Associated Diagnosis Comments DENTURE IMPRESSION Routine 03/19/2025 10:30 AM ED T Fracture of denture documented in this encounter Visit Diagnoses Diagnosis Fracture of denture- Primary documented in this encounter Additional Health Concerns Assessment Noted Time PHQ-9 Depression Total Score: 13 024 2:51 PM EDT documented as of this encounter Care Teams Asset Card Clerk Relationship Specialty Start Date End Date Name, MD Weston [address] [place] [address] PCP - General Family Medicine 07/24/15 Chanel Mark, Connie [address] [place] [address] Pharmacist Internal Medicine 04/04/22 Silver Contreras Library PageChoker Setter 04/20/23 documented as of this encounter
--- OUTSIDE RECORDS SUMMARY | 2025-03-19 13:19 | XMS_ITS | Encounter Summary ---
Author Organization [employer] Address 75 [facility] 7t [place] [address] Care Team Providers Care Car Dumper Operator Helper Name Role Phone Name, Weston FLOWER Primary Care Provider [phone] Chanel Mark PharmD Unavailable [phone] Reason for Visit * Reason Comments Med Refill Encounter Details Date Type Department Care Team ([facility] st Contact Info) Description 06/15/2023 Refill [facility] [address] [place], [place] [phone] Name, MD Weston [address] [place] [address] 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) [...] Description 03/21/2025 1:30 PM EDT Office Visit [facility] ADULT DENTAL [address] [place] [address] Noe Garcia, JARED [address] [place] [address] 03/24/2025 2:30 PM EST Office Visit [facility] MEDICINE [address] [place] [address] Name, MD Weston [address] [place] [address] 05/08/2025 1:00 PM EST Medication Management [address] [address] PuiaAnamChanel, PharmD [address] [place] [address] 09/11/2025 1:30 PM EDT Office Visit [facility] ADULT DENTAL [address] [place] [address] Bria Sanz documented as of this encounter Goals Goal Patient Goal Type Associated Problems Recent Progress Patient-Stated? Author Hemoglobin A1c < 7 Result Component 8.3( 12:08 PM EDT) No Puia, Chanel, PharmD Record your blood sugar as directed Result Component No Puia Chanel, PharmD Note: Continue to check FBG, change PM testing time to ~2 hrs post dinner to aid in med titration. documented as of this encounter Visit Diagnoses Diagnosis Diabetes mellitus type 2 with complications (HCC) documented in this encounter Additional Health Concerns Assessment Noted Time PHQ-9 Depression Total Score: 17 023 9:08 AM EDT documented as of this encounter Care Teams Car Dumper Operator Helper Relationship Specialty Start Date End Date Name, MD Weston [address] [place] [address] PCP - General Family Medicine 07/24/15 Chanel Mark PharmD [address] [place] [address] Pharmacist Internal Medicine 04/04/22 Silver Contreras Electrician ShopNurse Liaison 04/20/23 documented as of this encounter
--- OUTSIDE RECORDS SUMMARY | 2025-03-19 13:19 | XMS_ITS | Encounter Summary ---
Author Organization [employer] Address 75 [facility] 7t [place] [address] Care Team Providers Care Surveying Teacher Name Role Phone Name, Weston FLOWER Primary Care Provider [phone] Chanel Mark PharmD Unavailable [phone] Reason for Visit * Reason Onset Date Comments Referral 01/31/2025 Encounter Details Date Type Department Care Team ([facility] st Contact Info) Description 01/31/2025 Telephone [facility] MED[facility]INE [address] [place], [place] [phone] Name, MD Weston [address] [place] [address] Referral Social History Tobacco Use Types Packs/Day [...] with others, in a hotel, in a jail, living outside on the street, on a [...] AM EDT T/C to pt via S [employer] Plant Helper Cornelio #[id number]. Pt confirms that she would like a new vascular referral. States she does not want to be seen at [facility]. States she has no specific office in mind but heard there was a vein specialist in [place]. Pt c/o intermittent 6-/7/10 pain to BLE [...] 01/31/2025 10:03 AM EDT TC from [place], Campus Director with [employer], requesting a new referral for vascular surgery. Pt does not wants to be seen in [facility] Contact [place] at [phone] Or pt [phone] (need communications officer) documented in this encounter Plan of Treatment Upcoming Encounters Date Type Department Care Team ([facility] st Contact Info) Description 03/21/2025 1:30 PM EDT Office Visit [facility] ADULT DENTAL [address] [place] [address] Noe Garcia DMD [address] [place] [address] 03/24/2025 2:30 PM EST Office Visit [facility] MEDICINE [address] [place] [address] Weston Lagunas MD [address] [place] [address] 05/08/2025 1:00 PM EST Medication Management [address] [address] Puia, Chanel, PharmD [address] [place] [address] 09/11/2025 1:30 PM EDT Office Visit [facility] ADULT DENTAL [address] [place] [address] Bria Sanz documented as of this encounter [...] Noted Time PHQ-9 Depression Total Score: 13 08/07/ 024 2:51 PM EDT documented as of this encounter Care Teams Surveying Teacher Relationship Specialty Start Date End Date Weston Lagunas MD [address] [place] [address] PCP - General Family Medicine 07/24/15 Chanel Mark, Connie [address] [place] [address] Pharmacist Internal Medicine 04/04/22 Silver Contreras Police JusticeHull Inspector 04/20/23 documented as of this encounter
--- OUTSIDE RECORDS SUMMARY | 2025-03-19 13:19 | XMS_ITS | Encounter Summary ---
Author Organization [employer] Address 75 [facility] 7t [place] [address] Care Team Providers Care Furnace Hand Name Role Phone Name, Weston FLOWER Primary Care Provider [phone] Chanel Mark PharmD Unavailable [phone] Reason for Visit * Reason Comments Med Refill Encounter Details Date Type Department Care Team ([facility] st Contact Info) Description 09/11/2023 Refill [facility] [address] [place] [address] Chanel Mark, PharmD [address] [place] [address] Type 2 diabetes mellitus without complication, without long-term current use of insulin ([facility]) Social History Tobacco Use Types Packs/Day Years [...] with others, in a hotel, in a senior living, living outside on the street, on a [...] Description 03/21/2025 1:30 PM EDT Office Visit [facility] ADULT DENTAL [address] [place] [address] Noe Garcia, DMD [address] [place] [address] 03/24/2025 2:30 PM EST Office Visit [address] [address] Name, MD Weston [address] [place] [address] 05/08/2025 1:00 PM EST Medication Management [facility] [address] [place] [address] Chanel Mark, PharmD [address] [place] [address] 09/11/2025 1:30 PM EDT Office Visit [facility] ADULT DENTAL [address] [place] [address] Bria Sanz documented as of this encounter [...] documented as of this encounter Care Teams Furnace Hand Relationship Specialty Start Date End Date Name, MD Weston [address] [place] [address] PCP - General Family Medicine 07/24/15 Chanel Mark PharmD [address] [place] [address] Pharmacist Internal Medicine 04/04/22 Silver Contreras Ultrasound ManagerPlastics Scientist 04/20/23 documented as of this encounter
--- OUTSIDE RECORDS SUMMARY | 2025-03-19 13:19 | XMS_ITS | Encounter Summary ---
Author Organization [employer] Address 75 [facility] 7t [place] [address] Care Team Providers Care Helmet Coverer Name Role Phone Name, Weston FLOWER Primary Care Provider [phone] Chanel Mark PharmD Unavailable Encounter Details Date Type Department Care Team (Late st Contact Info) Description 05/18/2023 Abstract [facility] ADULT DENTAL [address] [place] [address] Karl, Deborah [address] [place] [address] Social History Tobacco Use Types Packs/Day Years [...] t he electric, gas, oil or water [employer] threatened to shut off services in your [...] Description 03/21/2025 1:30 PM EDT Office Visit [facility] ADULT DENTAL [address] [place] [address] Noe Garcia, JARED [address] [place] [address] 03/24/2025 2:30 PM EST Office Visit [address] [address] Name, MD Weston [address] [place] [address] 05/08/2025 1:00 PM EST Medication Management [address] [address] Chanel Mark, PharmD [address] [place] [address] 09/11/2025 1:30 PM EDT Office Visit [facility] ADULT DENTAL [address] [place] [address] Bria Sanz documented as of this encounter [...] documented as of this encounter Care Teams Helmet Coverer Relationship Specialty Start Date End Date Name, MD Weston [address] [place] [address] PCP - General Family Medicine 07/24/15 Chanel Mark, Connie [address] [place] [address] Pharmacist Internal Medicine 04/04/22 Silver Contreras Chemical Laboratory TechnicianTellers Supervisor 04/20/23 documented as of this encounter
--- OUTSIDE RECORDS SUMMARY | 2025-03-19 13:19 | XMS_ITS | Encounter Summary ---
Author Organization [employer] Address 75 [facility] 7t [place] [address] Care Team Providers Care Staff Midwife/Apprenticeship Director Name Role Phone Name, Weston FLOWER Primary Care Provider [phone] Chanel Mark PharmD Unavailable [phone] Encounter Details Date Type Department Care Team (Latest Contact Info) Description 12/08/2020 Abstract [facility] CONVERSIONS Dental, Provider, DDS Social History Tobacco [...] Care Team ( st Contact Info) Description 03/21/2025 1:30 PM EDT Office Visit [facility] ADULT DENTAL [address] [place] [address] Noe Garcia, JARED [address] [place] [address] 03/24/2025 2:30 PM EST Office Visit [facility] MEDICINE [address] [place] [address] Name, MD Weston [address] [place] [address] 05/08/2025 1:00 PM EST Medication Management [facility] MEDICINE [address] [place] [address] PuiaAnamChanel, PharmD [address] [place] [address] 09/11/2025 1:30 PM EDT Office Visit [facility] ADULT DENTAL [address] [place] [address] Bria Sanz documented as of this encounter Visit Diagnoses Not on filedocumented in this encounter Care Teams Staff Midwife/Apprenticeship Director Relationship Specialty Start Date End Date Name, MD Weston [address] [place] [address] PCP - General Family Medicine 07/24/15 Chanel Mark PharmD [address] [place] [address] Pharmacist Internal Medicine 04/04/22 Silver Contreras Supervisor Electronic TestingDisability Specialist 04/20/23 documented as of this encounter
--- OUTSIDE RECORDS SUMMARY | 2025-03-19 13:19 | XMS_ITS | Encounter Summary ---
Author Organization [employer] Address 75 [facility] 7t [place] [address] Care Team Providers Care Teaching Manager Name Role Phone Name, Weston FLOWER Primary Care Provider [phone] Chanel Mark PharmD Unavailable [phone] Reason for Visit * Reason Comments Med Refill Encounter Details Date Type Department Care Team ([facility] st Contact Info) Description 07/18/2023 Refill [facility] MEDICINE [address] [place], [place] [phone] Elen Watters MD [address] [place] [address] 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) [...] Description 03/21/2025 1:30 PM EDT Office Visit [facility] ADULT DENTAL [address] [place] [address] Noe Garcia, JARED [address] [place] [address] 03/24/2025 2:30 PM EST Office Visit [facility] MEDICINE [address] [place] [address] Name, MD Weston [address] [place] [address] 05/08/2025 1:00 PM EST Medication Management [address] [address] PuiaChanel, PharmD [address] [place] [address] 09/11/2025 1:30 PM EDT Office Visit [facility] ADULT DENTAL [address] [place] [address] Bria Sanz documented as of this encounter [...] Noted Time PHQ-9 Depression Total Score: 17 08/15/ 023 9:08 AM EDT documented as of this encounter Care Teams Teaching Manager Relationship Specialty Start Date End Date Name, MD Weston [address] [place] [address] PCP - General Family Medicine 07/24/15 Chanel Mark PharmD [address] [place] [address] Pharmacist Internal Medicine 04/04/22 Silver Contreras Plant Taxonomy TeacherFork Lift Truck Operator 04/20/23 documented as of this encounter
--- OUTSIDE RECORDS SUMMARY | 2025-03-19 13:20 | XMS_ITS | Encounter Summary ---
Author Organization [employer] Address [address] [facility] [address] [place] [address] Care Team Providers Care Automotive Electrician Name Role Phone Name, Weston FLOWER Primary Care Provider [phone] Chanel Mark PharmD Unavailable [phone] Reason for Visit * Reason Comments Med Refill Encounter Details Date Type Department Care Team ([facility] st Contact Info) Description 07/02/2024 Refill [facility] [address] [place] [address] Neelam Castillo DO [address] [place] [address] Diabetes mellitus type 2 with complications ([facility]/HCC) Social History Tobacco Use Types Packs/Day Years [...] with others, in a hotel, in a nursing home, living outside on the street, on a [...] Description 03/21/2025 1:30 PM EDT Office Visit [facility] [address] [place] [address] Noe Garcia, JARED [address] [place] [address] 03/24/2025 2:30 PM EST Office Visit [address] [address] Name, MD Weston [address] [place] [phone] 05/08/2025 1:00 PM EST Medication Management [address] [address] Chanel Mark, PharmD [address] [place] [address] 09/11/2025 1:30 PM EDT Office Visit [facility] [address] [place] [address], [place] [address] Bria Sanz documented as of this encounter Goals Goal Patient Goal Type Associated Problems Recent Progress Patient-Stated? Author Hemoglobin A1c < 7 Result Component 8.3( 5 12:08 PM EDT) No Chanel Mark, Connie [...] documented as of this encounter Care Teams Automotive Electrician Relationship Specialty Start Date End Date Name, MD Weston [address] [place] [address] PCP - General Family Medicine 07/24/15 Chanel Mark, PrasanthD [address] [place] [address] Pharmacist Internal Medicine 04/04/22 Silver Contreras Re[facility] Nursing TechRipsaw Operator 04/20/23 documented as of this encounter
--- OUTSIDE RECORDS SUMMARY | 2025-03-19 13:20 | XMS_ITS | Encounter Summary ---
Author Organization [employer] Address [address] [place] [address] 7[address] [place] [address] Care Team Providers Care Gasket Notcher Name Role Phone Name, Weston FLOWER Primary Care Provider [phone] Chanel Mark PharmD Unavailable Reason for Visit * Reason Comments Med Refill Encounter Details Date Type Department Care Team (Late st Contact Info) Description 12/02/2022 Refill [facility] [address] [place] [address] Name, MD Weston [address] [place] [address] Diabetes mellitus type 2 with complications ([facility]) Social History Tobacco Use Types Packs/Day Years [...] Description 03/21/2025 1:30 PM EDT Office Visit [facility] [address] [place] [address] Noe Garcia DMD [address] [place] [address] 03/24/2025 2:30 PM EST Office Visit [facility] [address] [facility] [place] [id number] Name, MD Weston Kimberly Danielson MD 05/08/2025 1:00 PM EST Medication Management [facility] [address] [facility] [place] [phone] Chanel Mark PharmD [facility] 09/11/2025 1:30 PM EDT Office Visit [facility] [place] [phone] Bria Sanz documented as of this encounter Goals Goal Patient Goal Type Associated Problems Recent Progress Patient-Stated? Author Hemoglobin A1c < 7 Result Component 8.3( 12:08 PM EDT) No Chanel Mark, PharmAddy Record your blood sugar as directed Result [...] documented as of this encounter Care Teams Gasket Notcher Relationship Specialty Start Date End Date Name, MD Weston Kimberly Danielson [place] [id number] PCP - General Family Medicine 07/24/15 Chanel Mark, PharmD Kimberly Danielson [place] [id number] Pharmacist Internal Medicine 04/04/22 Silver Contreras [employer] TurnerNetworking Specialist 04/20/23 documented as of this encounter
--- OUTSIDE RECORDS SUMMARY | 2025-03-19 13:20 | XMS_ITS | Encounter Summary ---
Author Organization [employer] Address [address] [facility] 7t [place] [address] Care Team Providers Care Bank Officer Name Role Phone Name, Weston FLOWER Primary Care Provider [phone] Chanel Mark PharmD Unavailable [phone] Encounter Details Date Type Department Care Team ([facility] st Contact Info) Description 03/03/2023 Abstract [facility] [address] [place] [address] Meghana Vines DDS [address] [place], [place] [phone] Social History Tobacco Use Types Packs/Day Years [...] Description 03/21/2025 1:30 PM EDT Office Visit [facility] [address] [place] [address] Noe Garcia DMD [address] [place] [phone] 03/24/2025 2:30 PM EST Office Visit [address] [address] Name, MD Weston [address] [place] [address] 05/08/2025 1:00 PM EST Medication Management [address] [address] PuiaChanel, PharmD [address] [place] [address] 09/11/2025 1:30 PM EDT Office Visit [facility] [address] [place] [phone] Bria Sanz documented as of this encounter Goals Goal Patient Goal Type Associated Problems Recent Progress Patient-Stated? Author Hemoglobin A1c < 7 Result Component 8.3( 12:08 PM EDT) No Puia Chanel, PharmD Record your blood sugar as directed Result Component No Puchiara Chanel, PharmD Note: Continue to check FBG, change PM testing time to ~2 hrs post dinner to aid in med titration. documented as of this encounter Visit Diagnoses Not on filedocumented in this encounter Additional Health Concerns Assessment Noted Time PHQ-9 Depression Total Score: 17 023 9:08 AM EDT documented as of this encounter Care Teams Bank Officer Relationship Specialty Start Date End Date Name, MD Weston [address] [place] [address] PCP - General Family Medicine 07/24/15 Chanel Mark, PrasanthD [address] [place] [address] Pharmacist Internal Medicine 04/04/22 Silver Contreras Set Up OperatorIt Application Administrator 04/20/23 documented as of this encounter
--- OUTSIDE RECORDS SUMMARY | 2025-03-19 13:20 | XMS_ITS | Clinical Summary ---
Author Organization [employer] Address [address] [facility] 7t [place] [address] Care Team Providers Care Barrel Loader Name Role Phone Name, Weston FLOWER Primary Care Provider Chanel Mark PharmD Unavailable [phone] Allergies Active Allergy Reactions Criticality Noted Date Comments Diphenhydramine 03/26/2018 Medications Blood Glucose Monitoring Suppl (FreeStyle Lite) deviceIndication s:Type 2 diabetes mellitus without complication, without long-term current use of insulin ([facility]) Inject 1 each under the skin 2 times daily. Use to test blood sugar as directed 1 each 07/19/19 24 Active Ketotifen Fumarate 0.035 % solutionIndicati ons:Seasonal allergies Administer 1 drop into affected eye(s) 2 times daily. 5 mL 1 01/26/20 24 Active Biotin w/ Vitamins C & E (HAIR SKIN & NAILS GUMMIES PO) Take 1 each by mouth Once per day. OTC Active atorvastatin (Lipitor) 40 MG tabletIndication s:Type 2 diabetes mellitus without complication, without long-term current use of insulin ([facility]) Take 1 tablet (40 mg) by mouth in the morning. 90 tablet 3 05/03/20 24 Active TRUEplus Lancets 33G miscIndications: Type 2 diabetes mellitus without complication, without long-term current use of insulin (HCC) TEST BLOOD SUGAR TWICE DAILY DIRECTED 100 each 11 07/27/19 25 Active glucose blood (FREESTYLE LITE) test stripIndications :Type 2 diabetes mellitus without complication, without long-term current use of insulin (HCC) TEST BLOOD SUGAR TWICE DAILY DIRECTED 100 strip 11 07/27/19 25 Active gabapentin (Neurontin) 100 MG capsuleIndicatio ns:Diabetes mellitus type 2 with complications ([facility]) TAKE 1 CAPSULE BY MOUTH AT BEDTIME 30 capsule 11 07/27/19 25 Active Blood Pressure Monitoring (Omron 3 Series BP Monitor) deviceIndication s:Essential hypertension Use to check BP daily as directed 1 each 08/08/19 25 Active melatonin 5 MG tabletIndication s:Diabetes [...] breakfast and with evening meal. 180 tablet 1 01/11/20 25 Active fluticasone (Flonase) 50 MCG/ACT nasal sprayIndications :Seasonal allergies INSTILL 2 SPRAYS IN EACH NOSTRIL ONCE DAILY 48 g 1 01/11/20 25 Active Calcium Carb-Cholecalcif jacobo 600-10 MG-MCG tablet Take 1 tablet by mouth 2 times daily. TAKE 1 TABLET BY MOUTH TWICE DAILY IN THE MORNING AND IN THE EVENING 180 tablet 1 01/11/20 25 Active Alcohol Swabs (Alcohol Prep) 70 % pads USE DIRECTED TO TEST BLOOD SUGAR AND INJECT INSULIN 100 each 11 01/29/20 25 Active Aspirin Low Dose 81 MG [...] split. 90 tablet 3 02/11/20 25 Active lisinopril 20 MG tabletIndication s:Essential hypertension TAKE 1 TABLET BY MOUTH EVERY MORNING 90 tablet 3 03/05/20 25 Active sertraline (Zoloft) 50 MG tabletIndication s:Diabetes mellitus type 2 with complications (HCC) TAKE 1 TABLET BY MOUTH EVERY EVENING 90 tablet 1 03/05/20 25 Active Polyethylene Glycol 3350 (PEG 3350) 17 GM/SCOOP powder Mix 17g (1 capful) in 8 ounces of water and take by mouth every day 02/20/20 25 Active docusate sodium (Colace) 100 MG capsule Take 100 mg by mouth at bedtime. 02/20/20 25 Active acetaminophen (Tylenol) 325 MG tabletIndication s:Varicose veins of bilateral lower extremities with pain Take 2 tablets (650 mg) by mouth every 6 (six) hours if needed for mild pain or moderate pain. 40 tablet 2 03/12/20 25 Active lisinopril 20 MG tabletIndication s:Essential hypertension TAKE 1 TABLET BY MOUTH EVERY MORNING 90 tablet 3 03/28/20 24 2024 Discontinued acetaminophen (Tylenol) 325 MG tablet Take 2 tablets (650 mg) by mouth every 6 (six) hours if needed for mild pain or moderate pain. 40 tablet 2 08/08/19 25 2024 Discontinued(R eorder (will not trigger notification to Pharmacy)) sertraline (Zoloft) 50 MG tabletIndication s:Diabetes mellitus type 2 with complications (HCC) TAKE 1 TABLET BY MOUTH EVERY EVENING 90 tablet 1 09/24/19 25 2024 Discontinued pseudoephedrine (Sudafed) 30 MG tablet Take 1 tablet (30 mg) by mouth every 4 (four) hours if needed for congestion for up to 10 days. 30 tablet 09/2024 Discontinued(M ed list cleanup (will not trigger notification to Pharmacy)) Active Problems Problem Noted Date Diagnosed Date Dental caries 03/12/2025 Cervical polyp 10/17/2024 Xerostomia 03/18/2024 Dental calculus [...] Diabetes mellitus type 2 with complications 05/2022 Assessment & Plan (03/14/2025 6:17 PM EDT): -Take your medications as directed and keep all your medical appointments -Monitor your blood glucose, keep a log and bring to your appointment -Eat healthy and focus on healthyfood choices daily fruits, vegetables, grains, low fat milk, low carbohydrate and fat -Maintain healthy weight as this will lower your risk for many health problems. -Exercise daily at least 30 mins -Stay up to date with your vaccines -Pay attention to your feet Orders: POCT Glucose Suspected COVID-19 virus infection 05/10/2022 History of cholecystectomy 05/10/2022 Gallstone 09/10/2018 Cervical radiculopathy 07/11/2018 Numbness of hand 05/07/2018 Vertigo 07/01/2016 Heart murmur 09/23/2015 Overview (08/22/2023): She has normal ECHO with aortic sclerosis Last ECHO on file done 2011 with [facility] (Dr Altamirano) DM (diabetes mellitus), type 2, [...] Encounters Date Type Department Care Team Description 03/19/2025 10:30 AM EDT Office Visit [facility] [address] [place] [address] Hernandez-SorianoMainorMeghana, DDS Fracture of denture (Primary Dx) 03/12/2025 10:15 AM EDT Office Visit [facility] [address] [place] [address] Bria Sanz Dental caries (Primary Dx); Dental plaque; Dental calculus; Missing teeth, acquired 03/12/2025 9:30 AM EDT Office Visit [facility] [address] [place] [address] Radha Shah, CLARA Varicose veins of bilateral lower extremities with pain (Primary Dx); Diabetes mellitus type 2 with complications (HCC) 03/12/2025 Travel 03/11/2025 Telephone [facility] [address] [place] [phone] Chanel Mark, PharmD 03/11/2025 Travel 03/05/2025 Patient Outreach [facility] [address] [place], [place] [phone] Weston Lagunas MD Pre-visit Planning ([facility] unable to reach [facility] ) 03/05/2025 Refill [facility] [address] [place] [phone] Weston Lagunas MD Essential hypertension; Diabetes mellitus type 2 with complications (HCC) 02/25/2025 Telephone [facility] [address] [place] [phone] Weston Lagunas MD Referral 02/10/2025 Travel 02/06/2025 Refill [facility] [address] [place] [phone] Weston Lagunas MD Essential hypertension 02/05/2025 3:40 PM EDT Office Visit [facility] [address] [place] [address] Racheal Webster MD Acute non-recurrent sinusitis, unspecified location (Primary Dx) 02/05/2025 Travel 01/31/2025 Telephone [facility] [address] [facility] [place] [address] Name, MD Weston Referral 01/28/2025 Refill [facility] [address] [place] [address] Name, MD Weston 01/10/2025 Refill [facility] [address] [place] [address] Name, MD Weston Seasonal allergies from Last 3 Months Immunizations Immunization Administration Dates Next Due Hep A, Adult 02/02/2015,01/04/2012 Hep B, adult 04/03/2024(Deferred: History of disease - immune d/t natural infection per titers 12/19/23) Influenza injectable quadriv alent IIV4 with preservative 02/25/2019,03/01/2018,02/25/2016 Influenza injectable quadriv alent preservative free 02/02/2015 Influenza, IIV3, injectable 02/25/2014, 9 Influenza, Split (incl. nayana fied surface antigen) 03/06/2012 MMR 01/04/2012 Pneumococcal Conjugate PCV 20 03/11/2025 Pneumococcal Polysaccharide PPSV23 12/27/2007 Tdap 01/04/2012 Family [...] with others, in a hotel, in a alf, living outside on the street, on a [...] Sign Reading Time Taken Comments Blood Pressure 128/76 03/12/2025 10:40 AM EDT Pulse 88 03/12/2025 9:29 AM EDT Temperature 36.9 C (98.5 F) 03/12/2025 9:29 AM EDT Respiratory Rate 22 03/12/2025 9:29 AM EDT Oxygen Saturation 99% 03/12/2025 9:29 AM EDT Inhaled Oxygen Concentration - - Weight 56.4 kg (124 lb 6.4 oz) 03/12/2025 9:29 A M EDT Height 154.9 cm (5' 1 ) 03/12/2025 9:29 AM EDT Body Mass Index 23.51 03/12/2025 9:29 AM EDT Plan of Treatment Upcoming Encounters Date Type Department Care Team (Late st Contact Info) Description 03/21/2025 1:30 PM EDT Office Visit [facility] [address] [place], [place] [phone] Noe Garcia, DMD [address] [place] [address] 03/24/2025 2:30 PM EST Office Visit [facility] [address] [place] [phone] Name, MD Weston [address] [place] [address] 05/08/2025 1:00 PM EST Medication Management [address] [address] Chanel Mark, PharmD [address] [place] [address] 09/11/2025 1:30 PM EDT Office Visit [facility] [address] [place] [address] Bria Sanz Health Maintenance Due Date Last Done Comments CT Colonography 1965 Colonoscopy 1965 Colorectal Cancer Screening 1965 FIT DNA/Cologuard 1965 FIT 1965 FOBT 1965 Sigmoidoscopy 1965 Alcohol/Substance Use Screening 1976 Zoster Vaccines (1 of 2) 2014 DTaP/Tdap/Td Vaccines (2 - Td or Tdap) 01/03/2022 01/04/2012 Diabetes: Urine Protein Screening 01/13/2024 01/12/2023, 01/28/2022, 05/21/2020 SDOH Screening 08/14/2024 08/15/2023 Lipid Panel 12/18/2024 12/19/2023, 12/21, 01/28/2022, Additional history exists COVID-19 Vaccine (2 - 2024- season) 2025 01/14/2021 Influenza Vaccine (#1) 2025 9, 03/01/2018, 02/25/2016, Additional history exists Diabetes: Hemoglobin A1C 05/12/2025 025, 11/12/2024, 08/07/2024, Additional history exists Depression Monitoring 05/14/2025 11/12/2024, 024 Dental Oral Exam 09/11/2025 03/12/2025, , 02/14/2023 Dental Prophylaxis 09/11/2025 03/12/2025, 1 , 09/15/2023, Additional history exists Diabetes: Foot Exam 11/12/2025 11/12/2024, 11/12/2024, 11/12/2024, Additional history exists Disability Screening 11/12/2025 11/12/2024 Dental X-Ray: Bitewings 03/13/2026 03/12/20 25, 09/15/2023, 02/14/2023 Tobacco Screening 03/19/2026 03/19/2025 Eye Exam 08/05/2026 08/05/2024, 07/20, 08/05/2024, Additional [...] Completed 12/19/2023 HIV Screening Completed 10/17/2024, 12/19/2023 Pneumococcal Vaccine: 50+ Years Completed 03/11/2025, 12/27/2007 HIB Vaccines Aged Out No longer eligi [...] Associated Diagnosis Comments DENTURE IMPRESSION Routine 03/19/2025 10 :30 AM EDT Fracture of denture BITEWINGS - 4 RADIOGRAPHIC IMAGES Routine 03/12/2025 10:15 AM EDT PROPHYLAXIS - ADULT Routine 03/12/2025 1 0:15 AM EDT ORAL HYGIENE INSTRUCTIONS Routine 03/12/2025 10:15 AM EDT CASE PRESENTATION, DETAILED AND EXTENSIVE TREATMENT PLANNING Routine 03/12/2025 10:15 AM EDT PERIODIC ORAL EVALUATION - ESTABLISHED PATIENT Routine 03/12/2025 10:15 AM EDT POCT GLUCOSE Routine 03/12/2025 9:31 AM EDT Diabetes mellitus type 2 with complications (HCC) POCT GLYCATED HEMOGLOBIN, TOTAL Routine 02/10/2025 12:08 PM EDT Type 2 diabetes mellitus with hyperglycemia, without long-term current use of insulin (CMS/HCC) BI MAMMOGRAM SCREENING TOMOSYNTHESIS BILATERAL Routine 11/12/2024 11:02 AM EDT HIV 1/2 ANTIGEN/ANTIBODY, FOURTH GENERATION W/RFL Routine 10/17/2024 2:07 PM EDT Screening examination for venereal disease HPV DNA, LOW/HIGH RISK Routine 10/17/2024 1:57 PM EDT PAP SMEAR Routine 10/17/2024 1:57 PM EDT Routine cervical smear PANORAMIC RADIOGRAPHIC IMAGE Routine 04/26/2024 11:30 AM EST HEPATITIS C AB W/REFL TO HCV RNA, QN, PCR Routine 12/19/2023 9:45 AM EDT Screening examination for venereal disease LIPID PANEL, STANDARD Routine 12/19/2023 9:45 AM EDT Type 2 diabetes mellitus without complication, without long-term current use of insulin (CMS/HCC) ALBUMIN, RANDOM URINE W/CREATININE Routine 01/12/2023 10:38 AM EDT Type 2 diabetes mellitus without complication, without long-term current use of insulin (CMS/HCC) PE (physical exam), annual Screen for colon cancer On statin therapy from Last 3 Months or Most Recently Relevant to Health Maintenance Results * (ABNORMAL) POCT Glucose (03/12/2025 9:31 AM EDT) Glucose Blood, POC 288(A) 60 - 200 mg/dL QC Media Lot # [id number] Lot# Expiration Date Blood Capillary blood specimen / Unknown 03/12/2025 9:31 AM EDT Radha Shah [employer] POINT OF CARE TEST ENTER/EDIT ORDERABLES Final Result * (ABNORMAL) POCT Hgb A1c (02/10/2025 12:08 PM EDT) Hemoglobin A1C 8.3(A) 4.0 - 5.7 % Blood 02/10/2025 12:0 8 PM EDT us Weston Lagunas MD POINT OF CARE TEST ENTER/EDIT OR DERABLES Final Result * BI Mammogram Screening Tomosynthesis Bilateral (11/12/2024 11:02 AM EDT) Anatomical Region Laterality Modality Breast Bilateral Mammography 11/12/2024 11:0 2 AM EDT Narrative 11/15/2024 5:37 PM EDT [facility] [place] [address] Mammography Report Signed Patient: Pepper Rothman MR#: [id number] 37 : 1965 Acct:[id number] Age/Sex: 58 / F ADM Date: 11/12/24 Loc: HO.MAMMO Attending Dr: Weston Lagunas MD Ordering Physician: Weston Lagunas MD Results: 2Benign Fi ndings Date of Service: 11/12/24 Follow Up: 1 Year From Orig inal Mammogram Procedure(s): MM tomosynthesis screening BI Accession Number(s): [id number] cc: Weston Lagunas MD EXAMINATION: MM SCREENING [...] 11/15/24 1734 DD/ 1102 TD/TT: 11/12/24 1122 Director Of Business Applications: Procedure Note Donotjoseinterpreter, Image - 11/15/2024 [facility] [address] [place] [address] Mammography Report Signed Patient: Susannah Rothman#: [id number] 37 : 1965Acct:[id number] Age/Sex: 58 / FADM Date: 11/12/24 Loc: HO.MAMMO Attending Dr: Weston Lagunas MD Ordering Physician: Weston Lagunas MDResults: 2Benign Fi ndings Date of Service: 11/12/24Follow Up: 1 Year From Orig ina Mammogram Procedure(s): MM tomosynthesis screening BI Accession Number(s): [id number] cc: Weston Lagunas MD EXAMINATION: MM SCREENING [...] DO 11/15/2024 05:34 PM EDT Dictated By: Tyminski,Michelle DO Signed By: <Electronically signed by Michelle Booker, DO in OV> 11/15/24 1734 DD/ 1102 TD/TT: 11/12/24 1122 Director Of Business Applications: Weston BEAR BI PROCEDURES Final Result * HIV-1/2 Antigen and Antibodies, Fourth Generation, with Reflexes (10/17/2024 2:07 PM EDT) HIV AB/AG Nonreactive Nonreactive [facility] Comment:HIV-1 p24 Ag and/or HIV-1/HIV-2 Ab not detected.A test result that is nonreactive does not exclude thepossibility of exposure to or infection with HIV-1 and/orHIV-2. Nonreactive results in this assay for individualswith prior exposure to HIV-1 and/or HIV-2 may be due toantigen and antibody levels that are below the limit ofdetection of this assay.The Koubachi HIV Ag/Ab Combo assay result andsupplemental assay results should be interpreted inconjunction with the patient's clinical presentation,history and other laboratory results. If the results areinconsistent with clinical evidence, additional testing issuggested to confirm the result. Blood Venous blood specimen / Unknown 10/17/2024 2:07 PM EDT 10/17/2024 4:01 PM EDT Juan Costa [facility] LAB BLOOD ORDERABLES Chio l Result [facility] [address] [place] [phone] * HPV DNA, Low/High Risk (10/17/2024 1:57 PM EDT) HPV High Risk Negative Negative [facility] HPV Genotype 16 Negative Negative [facility] HPV Genotype 18 Negative Negative [facility] Comment:HPV testing performe d at [facility] (CLIA#[id number]), [address] [place] [address].Testing for HPV was performed using the Leslie [...] 1:57 PM EDT 10/18/2024 10:35 AM EDT us Juan Costa CNM LAB BLOOD ORDERABLES Chio tanner Result [facility] [address] [place] [phone] * Pap Smear (10/17/2024 1:57 PM EDT) Swab Cervix uteri structure / Unknown 10/17/2024 1:57 PM EDT 10/18/2024 10:35 AM EDT Narrative [facility] - 10/23/2024 10:35 AM EDT ----- ------- Name: Pepper Rothamn Age/Sex: 58/F : 1965 Unit#: [id number] Attend Dr: JUAN COSTA CNM Re10/17/24 Status: DEP REF Location: [facility] Disch: ----- ------- SPEC : [id number] RECD: 10/18/24 STATUS: BRIANNA TEE NUM: [id number] MARILIN: 10/17/[address] [facility] [address]: JUAN COSTA CNM ENTERED: 10/18/24 SP TYPE: Pap Smr [facility] DR: ORDERED: Pap Smear Interpretation Satisfactory for [...] and HPV testing will be performed at [facility] (CLIA #[id number]), [address] [place] [address]. Testing for HPV was performed using the [...] detected. All professional services are performed by [facility] ([address] [place] [phone]; ; CLIA #[id number]). The PAP Test is a screening procedure with the inherent possibility of both false negative and false positive results. Results should be interpreted in the context of historic and current clinical findings. Reliability of the PAP Test is enhanced by performing the test on a regular repetitive basis. CONTINUED ON NEXT PAGE ----- ------- Name: Pepper Rothman Age/Sex: 58/F : 1965 Unit#: [id number] Attend Dr: JUAN COSTA CNM Re10/17/24 Status: DEP [facility]F [facility] Disch: ----- ------- SPEC : [id number] RECD: 10/18/24-1034 STATUS: BRIANNA TEE NUM: [id number] MARILIN: 10/17/24-[address] [facility] [address]: JUAN COSTA ENTERED: 10/18/24-0919 SP TYPE: Gabriela MERCHANT DR: ORDERED: Pap Smear ----- ------- Signed (signature on file) LAITH Haddad ([facility]) 10/23/24 1035 ----- ------- END OF REPORT [facility] CYTOLOGY ORDERABLES F inal Result Performing Organization Address [facility]/ZIP Co de Phone Number [facility] [address] [place] [phone] * Hepatitis C Antibody with Reflex to HCV, RNA, Quantitative, Real-Time PCR (12/19/2023 9:45 AM EDT) Hepatitis C Antibody Nonreactive Nonreactive [facility] Comment:Antibodies to HCV no t detected; does not exclude early acuteHCV infection. Blood Venous blood specimen / Unknown 12/19/2023 9:45 AM EDT 12/19/2023 11:[address] [facility] BLOOD ORDERABLES Chio l Result Performing Organization Address [facility]/ZIP Co de Phone Number [facility] [address] [place] [phone] [phone] * Lipid Panel, Standard (12/19/2023 9:45 AM EDT) Triglycerides 107 <150 mg/dL [facility] Comment:Desirable Triglyceri de: less than 150 mg/dLBorderline High Triglyceride 150-199 mg/dLHigh Triglyceride: 200-499 mg/dLVery High Triglyceride: greater than or equal to 5OO mg/dL Cholesterol 124 <200 mg/dL [facility] Comment:Desirable Cholestero l: less than 200 mg/dLBorderline High Cholesterol: 200-239 mg/dLHigh Cholesterol: greater than 239 mg/dL LDL Cholesterol Calculated 59 <100 mg/dL [facility] Comment:Desirable LDL: less than 100 mg/dLNear Optimal/Above Optimal LDL: 110- 129 mg/dLBorderline High LDL: 130-159 mg/dLHigh LDL: 160-189 mg/dLVery High LDL: greater than or equal to 190 mg/dL HDL Cholesterol 44 >40 mg/dL [facility] Comment:Desirable HDL: great er than 40 mg/dL Note: This HDL assay may give artificially low results in patients with liver disease. Blood Venous blood specimen / Unknown 12/19/2023 9:45 AM EDT 12/19/2023 11:27 AM EDT Weston Lagunas MD LAB BLOOD ORDERABLES Final Resul t Performing Organization Address [facility] Co de Phone Number [facility] [address] [place] [phone] * Albumin, Random Urine W/Creatinine (01/12/2023 10:38 AM EDT) Creatinine, Urine 78.03 mg/dL [facility] Microalbumin Urine 5.0 mg/L [facility] Microalbum Creatinine Ratio Ur 6.4 <30 ug/mg cr [facility] Comment:Albumin/Creatinine R atio Reference Ranges: Normal: < 30 ug/mg creatinine Microalbuminuria: 30 - 300 ug/mg creatinineClinical Albuminuria: > 300 ug/mg creatinine 01/12/2023 10:3 8 AM EDT 01/12/2023 11:31 AM EDT Weston Lagunas MD LAB URINE ORDERABLES Final Resul t Performing Organization Address [facility] Co de Phone Number [facility] [address] [place] [phone] from Last 3 Months or Most Recently Relevant to Health Maintenance Insurance [facility] AD[place] Care Teams Barrel Loader Relationship Specialty Start Date End Date Name, MD Weston [address] [place] [address] PCP - General Family Medicine 07/24/15 Chanel Mark PharmD [address] [place] [address] Pharmacist Internal Medicine 04/04/22 Silver Contreras Inside Sales AssociatePoultry Offal Icer 04/20/23
--- OUTSIDE RECORDS SUMMARY | 2025-03-19 13:20 | XMS_ITS | Encounter Summary ---
Author Organization [employer] Address [address] [facility] 7t [place] [address] Care Team Providers Care Director Of Global Sales Name Role Phone Name, Weston FLOWER Primary Care Provider [phone] Chanel Mark PharmD Unavailable [phone] Reason for Visit * Reason Comments Med Refill Encounter Details Date Type Department Care Team ([facility] st Contact Info) Description 03/26/2023 Refill [facility] [address] [place] [address] Chanel Mark, PharmD [address] [place] [address] Diabetes mellitus type 2 with complications ([facility]) Social History Tobacco Use [...] Description 03/21/2025 1:30 PM EDT Office Visit [facility] [address] [place] [phone] Noe Garcia, JARED [address] [place] [phone] 03/24/2025 2:30 PM EST Office Visit [facility] [address] [place] [address] Name, MD Weston [address] [place] [phone] 05/08/2025 1:00 PM EST Medication Management [address] [address] PuiaChanel, PharmD [address] [place] [address] 09/11/2025 1:30 PM EDT Office Visit [facility] [address] [place] [address] Bria Sanz documented as of this encounter [...] documented as of this encounter Care Teams Director Of Global Sales Relationship Specialty Start Date End Date Name, MD Weston [address] [place] [address] PCP - General Family Medicine 07/24/15 Chanel Mark PharmD [address] [place] [address] Pharmacist Internal Medicine 04/04/22 Silver Contreras Associate Director Of DevelopmentPerianesthesia Nurse 04/20/23 documented as of this encounter
--- OUTSIDE RECORDS SUMMARY | 2025-03-19 13:20 | XMS_ITS | Encounter Summary ---
Author Organization [employer] Address [address] [facility] 7t [place] [address] Care Team Providers Care Registered Sales Assistant Name Role Phone Name, Weston FLOWER Primary Care Provider [phone] Chanel Mark PharmD Unavailable [phone] Reason for Visit * Reason Comments Med Refill Encounter Details Date Type Department Care Team ([facility] st Contact Info) Description 03/30/2023 Refill [facility] MEDICINE [address] [place] [address] Name, MD Weston [address] [place] [address] Heartburn Social History Tobacco Use Types Packs/Day [...] 1:30 PM EDT Office Visit [facility] ADULT DENTAL [address] [place] [address] Noe Garcia DMD [address] [place] [address] 03/24/2025 2:30 PM EST Office Visit [address] [address] Name, MD Weston [address] [place] [address] 05/08/2025 1:00 PM EST Medication Management [address] [address] Chanel Mark, PharmD [address] [place] [address] 09/11/2025 1:30 PM EDT Office Visit [facility] ADULT DENTAL [address] [place] [address] Bria Sanz documented as of this encounter Goals Goal Patient Goal Type Associated Problems Recent Progress Patient-Stated? Author Hemoglobin A1c < 7 Result Component 8.3( 12:08 PM EDT) No PuiaAnamChanel, PharmD Record your blood sugar as directed [...] documented as of this encounter Care Teams Registered Sales Assistant Relationship Specialty Start Date End Date Name, MD Weston [address] [place] [address] PCP - General Family Medicine 07/24/15 Chanel Mark, Connie [address] [place] [address] Pharmacist Internal Medicine 04/04/22 Silver Contreras History Card ClerkCelery Packer 04/20/23 documented as of this encounter
--- OUTSIDE RECORDS SUMMARY | 2025-03-19 13:20 | XMS_ITS | Encounter Summary ---
Author Organization [employer] Address 75 [facility] 7t [place] [address] Care Team Providers Care Track Rider Name Role Phone Name, Weston FLOWER Primary Care Provider [phone] Chanel Mark PharmD Unavailable [phone] Reason for Visit * Reason Comments Med Refill Encounter Details Date Type Department Care Team ([facility] st Contact Info) Description 05/26/2024 Refill [facility] MEDICINE [address] [place] [address] Name, MD Weston [address] [place] [address] 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) [...] with others, in a hotel, in a residential, living outside on the street, on a [...] Description 03/21/2025 1:30 PM EDT Office Visit [facility] ADULT DENTAL [address] [place] [address] Noe Garcia, JARED [address] [place] [address] 03/24/2025 2:30 PM EST Office Visit [address] [address] Name, MD Weston [address] [place] [address] 05/08/2025 1:00 PM EST Medication Management [address] [address] Chanel Mark, PharmD [address] [place] [address] 09/11/2025 1:30 PM EDT Office Visit [facility] ADULT DENTAL [address] [place] [address] Bria Sanz documented as of this encounter [...] as of this encounter Care Teams Track Rider Relationship Specialty Start Date End Date Name, MD Weston [address] [place] [address] PCP - General Family Medicine 07/24/15 Chanel Mark, PrasanthD [address] [place] [address] Pharmacist Internal Medicine 04/04/22 Silver Contreras Hardware Engineering ManagerDeburring Technician 04/20/23 documented as of this encounter
--- OUTSIDE RECORDS SUMMARY | 2025-03-19 13:20 | XMS_ITS | Encounter Summary ---
Author Organization [employer] Address [address] [facility] 7t [place] [address] Care Team Providers Care Comb Capper Name Role Phone Name, Weston FLOWER Primary Care Provider [phone] Chanel Mark PharmD Unavailable [phone] Reason for Visit * Reason Comments Med Refill Encounter Details Date Type Department Care Team ([facility] st Contact Info) Description 01/03/2024 Refill [facility] MEDICINE [address] [place] [address] Chanel Mark, PharmD [address] [place] [address] Type 2 diabetes mellitus with hyperglycemia, without long-term current use of insulin ([facility]) Social History Tobacco Use Types Packs/Day [...] 1:30 PM EDT Office Visit [facility] ADULT DENTAL [address] [place] [address] Noe Garcia, JARED [address] [place] [address] 03/24/2025 2:30 PM EST Office Visit [address] [address] Name, MD Weston [address] [place] [address] 05/08/2025 1:00 PM EST Medication Management [address] [address] Chanel Mark, PharmD [address] [place] [address] 09/11/2025 1:30 PM EDT Office Visit [facility] ADULT DENTAL [address] [place] [address] Bria Sanz documented as of this encounter Goals Goal Patient Goal Type Associated Problems Recent Progress Patient-Stated? Author Hemoglobin A1c < 7 Result Component 8.3( 5 12:08 PM EDT) No Chanel Mark, PharmD [...] documented as of this encounter Care Teams Comb Capper Relationship Specialty Start Date End Date Name, MD Weston [address] [place] [address] PCP - General Family Medicine 07/24/15 Chanel Mark, PharmD [address] [place] [address] Pharmacist Internal Medicine 04/04/22 Silver Contreras Strategic Marketing ManagerCyberathlete 04/20/23 documented as of this encounter
--- OUTSIDE RECORDS SUMMARY | 2025-03-19 13:20 | XMS_ITS | Encounter Summary ---
Author Organization [employer] Address [address] [facility] 7t [place] [address] Care Team Providers Care Quilting Machine Helper Name Role Phone Name, Weston FLOWER Primary Care Provider [phone] Chanel Mark PharmD Unavailable [phone] Encounter Details Date Type Department Care Team (Late st Contact Info) Description 03/14/2023 Abstract [facility] ADULT DENTAL [address] [place] [address] Karl, Deborah [address] [place] [address] Social History Tobacco Use Types Packs/Day Years [...] t he electric, gas, oil or water TeamSnap threatened to shut off services in your [...] 1:30 PM EDT Office Visit [facility] ADULT DENTAL [address] [place] [address] Noe Garcia, JARED [address] [place] [address] 03/24/2025 2:30 PM EST Office Visit [address] [address] Name, MD Weston [address] [place] [address] 05/08/2025 1:00 PM EST Medication Management [address] [address] Chanel Mark, PharmD [address] [place] [address] 09/11/2025 1:30 PM EDT Office Visit [facility] ADULT DENTAL [address] [place] [address] Bria Sanz documented as of this encounter [...] documented as of this encounter Care Teams Quilting Machine Helper Relationship Specialty Start Date End Date Name, MD Weston [address] [place] [address] PCP - General Family Medicine 07/24/15 Chanel Mark, Connie [address] [place] [address] Pharmacist Internal Medicine 04/04/22 Silver Contreras High RiggerSoftware Engineer Advisor 04/20/23 documented as of this encounter
[2025-03-19 14:04] LABS: Alanine Aminotransferase 12 U/L (0-31); Albumin Level 4.2 g/dL (3.5-5.0); Alkaline Phosphatase 86 U/L (39-117); Anion Gap 10 (12-20); Aspartate Amino Transferase 25 U/L (5-31); Blood Urea Nitrogen 15 mg/dL (9-16); Calcium 10.2 mg/dL (8.4-10.2); Carbon Dioxide 29 mmol/L (22-29); Chloride 107 mmol/L (96-108); Cholesterol 116 mg/dL (<200); Estimated Glomerular Filt Rate > 60; HDL Cholesterol 43 mg/dL (>40); Potassium 4.2 mmol/L (3.3-5.1); Sodium 142 mmol/L (135-145); Total Protein 7.1 g/dL (6.5-8.0); Triglycerides 75 mg/dL (<150)
[2025-03-19 14:10] LABS: Microalbum/Creatinine Ratio Ur 12.8 ug/mg cr (<30)
== END 2025-03-19 10:42 | disposition home or self-care (01) ==
LOC: HO.HHCL 10:41
PROVIDERS: PCP Internal Medicine Geriatric Medicine; Referring Provider Nurse Practitioner Family; Visit Provider Internal Medicine Geriatric Medicine
DX: E11.65 Type 2 diabetes mellitus with hyperglycemia (principal); K59.00 Constipation, unspecified
CPT/HCPCS: 36415; 80053; 80061; 82043; 82570; 84443

== ENCOUNTER 2025-04-02 14:12 | Outpatient (AMB) | payer MEDICAID, SELFPAY ==
--- NOTE | 2025-04-02 14:48 | MHC.OFFVIS ---
Vital Signs 04/02/25 14:49 Height 5 ft 2 in Weight 124 lb BMI 22.7 BP 102/58 L Blood Pressure Location Rt brachial Position Sitting Pulse 70 Pulse Source Pulse Oximeter Pulse Oximetry (%) 99 Oxygen Delivery Method Room Air Intake Visit Reasons: 8w Intake Note: Patient follow up for acid reflux and lab results. Patient cc: C.O. persistence of chronic sx. No new concerns or sx at this time per pt. Fisheries Inspector Required: Yes Fisheries Inspector Services: Fisheries Inspector Present Fisheries Inspector Name: Flakito [id number] Information Interpreted: clinical only Accompanied by: Self / Same As Patient Allergies diphenhydramine (From BENADRYL) Allergy (Unknown, Verified 02/19/25 12:20) PALPATATIONS Benadryl Allergy (Unknown, Uncoded 02/04/24 18:56) palpitation HPI HPI 8w: Details: Patient is a 59-year-old Frisian speaking female with PMH of hyperlipidemia, hypertension, diabetes. F/u GI: ongoing GERD sx, constipation. Pt states mild improvement in bowel freq with use of osmotic laxative and occasional stimulant tab; stools occurring q2?4d, never >4d, but admits to forgetfulness and non-daily use. Still experiences incomplete evac at times. Constipation better than prior visit. GERD sx recurred with intermittent regurgitation of food and bloating after meals, but not daily. No new dysphagia, occasional sensation of food ?getting stuck? at epigastric region and reflux taste. No new meds since last visit. Reports anemia persists; scheduled w/ PCP for anemia f/u. Reports prior delayed emergence after anesthesia and h/o childhood heart murmur. Denies new sx or complications. No hospitalizations or acute GI flares. PFSH Medical History Acid reflux Colon cancer screening Constipation HLD (hyperlipidemia) HTN (hypertension) Diabetes Surgical History Hx of cholecystectomy Family History Brother Cancer Social History Alcohol intake: never Patient Tobacco Use Status: Never used Tobacco Gender identity: Female Review of Systems Const Reports as per [facility] ENT Reports as per HPI Card Reports as per HPI Resp Reports as per HPI GI Reports as per [facility] Reports as per HPI Physical Exam Vital Signs: Last Vital Signs Pulse 70 04/02/25 14:49 BP 102/58 L 04/02/25 14:49 Pulse Ox 99 04/02/25 14:49 Oxygen Delivery Method Room Air 04/02/25 14:49 BMI result Body Mass Index 22.7 Const General: healthy appearing, no acute distress and well developed Nutritional Appearance: average body habitus Orientation/consciousness: patient oriented x3 HEENT Head: Yes normal to inspection, Yes normocephalic and Yes atraumatic Face and sinus: Yes normal facial exam Eyes General: appearance normal, both eyes and all related structures Neck Neck: Yes normal visual inspection Resp Effort & Inspection: normal respiratory effort, able to speak in complete sentences, no tracheal deviation and symmetric chest movement Cardio Jugular venous distension: no JVD Neuro General: patient oriented x3 Gait exam (Neuro): Normal gait present Psych Appearance: grossly normal Mental Status: mental status grossly normal Speech and movement: Normal speech and movement present Affect: normal affect Attitude: cooperative Thought process: Normal thought process present Thought content: Normal thought content present Insight: Good insight present (Psych) Judgement: Good judgement present (Psych) Assessment & Plan Assessment & Plan (1) Acid reflux: Code(s): K21.9 - Gastro-esophageal reflux disease without esophagitis Category: Medical Qualifiers: Esophagitis presence: esophagitis presence not specified Qualified Code(s): K21.9 - Gastro-esophageal reflux disease without esophagitis Plan: Ongoing, intermittent regurgitation. Not on current PPI or H2RA; EGD pending to further delineate etiology. Additional testing: - EGD 05-06-2025 for dx/biopsy. - Hold famotidine day before procedure to avoid histological interference. Medications: - Start famotidine (Pepcid) prn GERD sx, daily or as needed?avoid day prior to EGD. Lifestyle Recommendations: - Continue to avoid dietary triggers, caffeine/dairy restriction as previously discussed. - Provided education re: pre-procedure dietary restrictions (no red/purple jello, clear liquids only). Referrals / Coordination of Care: - None new; pending EGD. Follow-Up Plan: - Reassess after EGD with plan to escalate acid suppression if indicated. (2) Constipation: Code(s): K59.00 - Constipation, unspecified Category: Medical Qualifiers: Constipation type: unspecified constipation type Qualified Code(s): K59.00 - Constipation, unspecified Plan: Mild improvement; still not daily BM, occasional incomplete evac. Meds not taken regularly?improvement noted when adherent. Goal is to optimize colonoscopy prep and overall bowel function, daily adherence emphasized. Additional testing: - None pending; GI eval via colonoscopy. Medications: - Reinforce daily use of PEG powder and stimulant lax tabs until colonoscopy. - Additional Senna tabs to be started bedtime x5 nights prior to scope (from 04-30-2025). Lifestyle Recommendations: - Maintain hydration, adhere to high fiber unless instructed otherwise for prep. - Clear liquid diet day before colonoscopy (05-05-2025). - Handouts: colonoscopy prep instructions and video tutorial provided/scannable QR code. Follow-Up Plan: - GI f/u post-procedure (05-14-2025) - Monitor BM freq. and tx adherence up to EGD/colonoscopy. (3) Anemia: Code(s): D64.9 - Anemia, unspecified Category: Medical Qualifiers: Anemia type: unspecified type Qualified Code(s): D64.9 - Anemia, unspecified Plan: Persistent on labs, no known Fe studies; cause unclear; ongoing investigation for potential GI source w/ EGD/colonoscopy. Additional testing: - Order CBC, Fe, TIBC, ferritin panel pre-scope. Medications: - None specifically; pt following with PCP. Lifestyle Recommendations: - Advised to share GI test results with PCP and notify of any new sx (SOB, fatigue). Referrals / Coordination of Care: - PCP f/u for etiology, consider heme if not clarified by upcoming workup. - Ensure results sent to PCP. Follow-Up Plan: - Monitor anemia trend post-scope, repeat labs if indicated. Plan Follow-up after endoscopy or sooner as needed Time: I spent a total of 35 minutes on the date of encounter which includes: Preparing to see the patient (reviewed previous documentation, test results and medical history) Performing a medically appropriate exam and/or evaluation Ordering medications, tests, and procedures Documenting clinical information in the health record Orders: Orders IRON PROFILE Today D64.9 - Anemia, unspecified Complete Blood Count Auto Diff Today D64.9 - Anemia, unspecified Medications: New famotidine Take one tablet daily at bedtime as needed 20 mg PO DAILY PRN 90 tabs 1RF GERD peg 3350-electrolytes 236-22.74-6.74 -5.86 gram until fecal effluent is clear 240 mL PO ONCE 4,000 mL 0RF simethicone (Gas Relief (simethicone)) per colonoscopy prep instructions 500 mg (4 x 125 mg) PO ONCE 4 caps 0RF abdominal distention bisacodyl Start 04/30: Take two tablets at bedtime for 5 nights 10 mg (2 x 5 mg) PO BEDTIME 10 tabs 0RF 5 days bisacodyl take four tablets once day of colonoscopy prep 20 mg (4 x 5 mg) PO ONCE 4 tabs 0RF Coding Level of Care Code Established Pt Est Pt Level 3 (72474) Patient Type Established Diagnoses Gastroesophageal reflux disease, unspecified whether esophagitis present K21.9 Esophagitis presence: esophagitis presence not specified Constipation, unspecified constipation type K59.00 Constipation type: unspecified constipation type Anemia, unspecified type D64.9 Anemia type: unspecified type
[2025-04-02 14:49] VITALS: BP 102/58; PULSE 70; O2SAT 99; BMI 22.7
--- OUTSIDE RECORDS SUMMARY | 2025-04-02 17:28 | XMS_ITS | Encounter Summary ---
Author Organization [employer] Address [address] [place] [address] 7t [place] [address] Care Team Providers Care Lock And Dam Repairer Name Role Phone Name, Weston FLOWER Primary Care Provider [phone] Chanel Mark PharmD Unavailable [phone] Reason for Visit * Reason Comments Med Refill Encounter Details Date Type Department Care Team (Late st Contact Info) Description 12/02/2022 Refill [facility] MEDICINE [address] [place] [phone] NameWeston MD [address] [place] [address] [phone] Diabetes mellitus type 2 with complications ([facility]) Social History Tobacco Use Types Packs/Day Years [...] Care Team (Late st Contact Info) Description 04/28/2025 11:00 AM EST Office Visit [facility] MEDICINE [address] [place] [address] [phone] NameWeston MD [address] [place] [address] [phone] 05/08/2025 1:00 PM EST Medication Management [facility] MEDICINE [address] [place] [address] Chanel Mark PharmD 230 [place] [address] 09/11/2025 1:30 PM EDT Office Visit [facility] ADULT DENTAL [address] [place] [address] Bria Sanz documented as of this encounter [...] documented as of this encounter Care Teams Lock And Dam Repairer Relationship Specialty Start Date End Date Name, MD Weston [address] [place] [address] PCP - General Family Medicine 07/24/15 Chanel Mark, PharmD [address] [place] [address] Pharmacist Internal Medicine 04/04/22 Silver Contreras Pulp Press TenderAssembler Dc Field Yoke 04/20/23 documented as of this encounter
--- OUTSIDE RECORDS SUMMARY | 2025-04-02 17:28 | XMS_ITS | Encounter Summary ---
Author Organization [employer] Address 75 [facility] 7t [place] [address] Care Team Providers Care Artificial Stone Setter Name Role Phone Name, Weston FLOWER Primary Care Provider [phone] Chanel Mark PharmD Unavailable [phone] Reason for Visit * Reason Comments Med Refill Encounter Details Date Type Department Care Team ([facility] st Contact Info) Description 01/03/2024 Refill [facility] MEDICINE [address] [place] [address] Chanel Mark, PharmD [address] [place] [address] Type 2 diabetes mellitus with hyperglycemia, without long-term current use of insulin ([facility]) Social History Tobacco Use Types Packs/Day [...] Description 04/28/2025 11:00 AM EST Office Visit [facility] MEDICINE [address] [place] [phone] Name, MD Weston [address] [place] [address] 05/08/2025 1:00 PM EST Medication Management [facility] MED[facility] [address] [place] [address] Chanel Mark, PharmD [address] [place] [address] 09/11/2025 1:30 PM EDT Office Visit [facility] ADULT DENTAL [address] [place] [address] Bria Sanz documented as of this encounter Goals Goal Patient Goal Type Associated Problems Recent Progress Patient-Stated? Author Hemoglobin A1c < 7 Result Component 8.3( 12:08 PM EDT) No Chaenl Mark PharmD Record your blood sugar as [...] documented as of this encounter Care Teams Artificial Stone Setter Relationship Specialty Start Date End Date Name, MD Weston [address] [place] [address] PCP - General Family Medicine 07/24/15 Chanel Mark PharmD 230 [place] [address] Pharmacist Internal Medicine 04/04/22 Silver Contreras Electrical Test EngineerAmbulette Driver 04/20/23 documented as of this encounter
--- OUTSIDE RECORDS SUMMARY | 2025-04-02 17:28 | XMS_ITS | Encounter Summary ---
Author Organization [employer] Address 75 [facility] 7t [place] [address] Care Team Providers Care Drill Bit Sharpener Name Role Phone Name, Weston FLOWER Primary Care Provider [phone] Chanel Mark PharmD Unavailable [phone] Reason for Visit * Reason Comments Med Refill Encounter Details Date Type Department Care Team ([facility] st Contact Info) Description 05/26/2024 Refill [facility] MEDICINE 230 [place] [address] Name, MD Weston [address] [place] [address] 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) [...] with others, in a hotel, in a custodial, living outside on the street, on a [...] Description 04/28/2025 11:00 AM EST Office Visit [facility] MEDICINE [address] [place] [address] Name, MD Weston [address] [place] [address] 05/08/2025 1:00 PM EST Medication Management [facility]INE [address] [place] [address] Chanel Mark, PharmD [address] [place] [address] 09/11/2025 1:30 PM EDT Office Visit [facility] ADULT DENTAL [address] [place] [address] Bria Sanz documented as of this encounter [...] documented as of this encounter Care Teams Drill Bit Sharpener Relationship Specialty Start Date End Date Name, MD Weston [address] [place] [address] PCP - General Family Medicine 07/24/15 Chanel Mark PharmD [address] [place] [address] Pharmacist Internal Medicine 04/04/22 Silver Contreras English Language Learner TeacherPharmaceutical Plant Operator 04/20/23 documented as of this encounter
--- OUTSIDE RECORDS SUMMARY | 2025-04-02 17:28 | XMS_ITS | Encounter Summary ---
Author Organization [employer] Address 75 [facility] 7t [place] [address] Care Team Providers Care Litigation Legal Secretary Name Role Phone Name, Weston FLOWER Primary Care Provider [phone] Chanel Mark PharmD Unavailable [phone] Reason for Visit * Reason Comments Med Refill Encounter Details Date Type Department Care Team ([facility] st Contact Info) Description 07/18/2023 Refill [facility] MEDICINE 230 [place], [place] [phone] Elen Watters MD [address] [place] [address] 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) [...] Description 04/28/2025 11:00 AM EST Office Visit [facility] MEDICINE [address] [place] [address] Name, MD Weston [address] [place] [address] 05/08/2025 1:00 PM EST Medication Management [facility] MEDICINE [address] [place] [address] PuiaAnamChanel, PharmD [address] [place] [address] 09/11/2025 1:30 PM EDT Office Visit [facility] ADULT DENTAL [address] [place] [address] Bria Sanz documented as of this encounter [...] documented as of this encounter Care Teams Litigation Legal Secretary Relationship Specialty Start Date End Date Name, MD Weston [address] [place], [place] [phone] PCP - General Family Medicine 07/24/15 Chanel Mark PharmD [address] [place], [place] [phone] Pharmacist Internal Medicine 04/04/22 Silver Contreras Advisor [employer]ocate [employer] Co FounderPrivate Investigator Surveillance 04/20/23 documented as of this encounter
--- OUTSIDE RECORDS SUMMARY | 2025-04-02 17:28 | XMS_ITS | Encounter Summary ---
Author Organization [email or web address] Address 75 [facility] 7t [place] [address] Care Team Providers Care Animal Ecologist Name Role Phone Name, Weston FLOWER Primary Care Provider [phone] Chanel Mark PharmD Unavailable [phone] Reason for Visit * Reason Comments Med Refill Encounter Details Date Type Department Care Team ([facility] st Contact Info) Description 07/02/2024 Refill [facility] MEDICINE 230 [place] [address] Neelam Castillo DO [address] [place] [address] Diabetes mellitus type 2 with complications ([facility]) Social History Tobacco Use Types Packs/Day Years [...] with others, in a hotel, in a skilled nursing, living outside on the street, on a [...] Description 04/28/2025 11:00 AM EST Office Visit [facility] MEDICINE [address] [place] [address] Name, MD Weston [address] [place] [address] 05/08/2025 1:00 PM EST Medication Management [facility] MED[facility]INE [address] [place] [address] Chanel Mark, PharmD [address] [place] [address] 09/11/2025 1:30 PM EDT Office Visit [facility] ADULT DENTAL [address] [place] [address] Bria Sanz documented as of this encounter [...] documented as of this encounter Care Teams Animal Ecologist Relationship Specialty Start Date End Date Name, MD Weston [address] [place] [address] PCP - General Family Medicine 07/24/15 Chanel Mark PharmD [address] [place] [address] Pharmacist Internal Medicine 04/04/22 Silver Contreras Coder OperatorChief Port Director 04/20/23 documented as of this encounter
--- OUTSIDE RECORDS SUMMARY | 2025-04-02 17:28 | XMS_ITS | Encounter Summary ---
Author Organization [employer] Address [address] [facility] 7t [place] [address] Care Team Providers Care Wage Hand Name Role Phone Name, Weston FLOWER Primary Care Provider [phone] Chanel Mark PharmD Unavailable [phone] Encounter Details Date Type Department Care Team (Latest Contact Info) Description 12/08/2020 Abstract [facility] Dental, Provider, DDS Social History [...] Description 04/28/2025 11:00 AM EST Office Visit [facility] [address] [place] [phone] Name, MD Weston [address] [place] [address] 05/08/2025 1:00 PM EST Medication Management [facility] [address] [place] [address] Chanel Mark, PharmD [address] [place] [address] 09/11/2025 1:30 PM EDT Office Visit [facility] [address] [place] [address] Bria Sanz documented as of this encounter Visit Diagnoses Not on filedocumented in this encounter Care Teams Wage Hand Relationship Specialty Start Date End Date Name, MD Weston [address], [place] [phone] PCP - General Family Medicine 07/24/15 Chanel Mark PharmD [address] [place] [address] Pharmacist Internal Medicine 04/04/22 Silver Contreras Painter AircraftVegetable Grower 04/20/23 documented as of this encounter
--- OUTSIDE RECORDS SUMMARY | 2025-04-02 17:28 | XMS_ITS | Clinical Summary ---
Author Organization [employer] Address 75 [facility] 7t [place] [address] Care Team Providers Care Director Of Plant Operations Name Role Phone Name, Weston FLOWER Primary Care Provider [phone] Chanel Mark PharmD Unavailable [phone] Allergies Active Allergy Reactions Criticality Noted Date Comments Diphenhydramine 03/26/2018 Medications Blood Glucose Monitoring Suppl (FreeStyle Lite) deviceIndication s:Type 2 diabetes mellitus without complication, without long-term current use of insulin ([facility]) Inject 1 each under the skin 2 [...] complication, without long-term current use of insulin ([facility]) Take 1 tablet (40 mg) by mouth [...] to 10 days. 30 tablet 02/06/20 25 2024 Discontinued(M ed list cleanup (will not trigger notification to Pharmacy)) Active Problems Problem Noted Date Diagnosed Date Pain of lower extremity 03/21/2025 Dental caries 03/12/2025 Cervical polyp 10/17/2024 Xerostomia [...] Encounters Date Type Department Care Team Description 03/25/2025 9:30 AM EST Office Visit [facility] [address] [place] [address] Hernandez-Soriano, Meghana, DDS 03/21/2025 1:30 PM EDT Office Visit [facility] [address] [place] [address] Noe Garcia, JARED 03/21/[address] [address] Weston Lagunas MD Chart Prep 03/19/2025 10:30 AM EDT Office Visit [facility] [address] [place] [address] Hernandez-Soriano, Meghana, DDS Fracture of denture (Primary Dx) 03/19/2025 Orders Only GENERIC EXTERNAL DATA DEPARTMENT Provider, Generic External Data 03/12/2025 10:15 AM EDT Office Visit [facility] [address] [place] [address] Bria Sanz Dental caries (Primary Dx); Dental plaque; Dental calculus; Missing teeth, acquired 03/12/2025 9:30 AM EDT Office Visit [address] [address] Radha Shah, PEANUT SEPARATOR Varicose veins of bilateral lower extremities with pain (Primary Dx); Diabetes mellitus type 2 with complications (HCC) 03/12/2025 Travel 03/11/[address] [address] Chanel Mark, PharmD 03/11/2025 Travel 03/05/2025 Patient Outreach [facility] [address] [place], [place] [phone] Weston Lagunas MD Pre-visit Planning ([facility] unable to reach LVM ) 03/05/2025 Refill [facility] [address] [place] [address] Weston Lagunas MD Essential hypertension; Diabetes mellitus type 2 with complications (HCC) 02/25/2025 Telephone [facility] [address] [place] [address] Weston Lagunas MD Referral 02/10/2025 Travel 02/06/2025 Refill [facility] [address] [place] [address] Weston Lagunas MD Essential hypertension 02/05/2025 3:40 PM EDT Office Visit [facility] [address] [place] [address] Racheal Webster MD Acute non-recurrent sinusitis, unspecified location (Primary Dx) 02/05/2025 Travel 01/31/2025 Telephone [facility] [address] [place] [address] Weston Lagunas MD Referral 01/28/2025 Refill [facility] [address] [place] [address] Weston Lagunas MD 01/10/2025 Refill [facility] [address] [place] [address] Weston Lagunas MD Seasonal allergies from Last 3 Months Immunizations [...] others, in a hotel, in a senior care, living outside on the street, on a [...] t he electric, gas, oil or water [employer] threatened to shut off services in your [...] Description 04/28/2025 11:00 AM EST Office Visit [facility] [address] [place] [address] Name, MD Weston [address] [place] [address] 05/08/2025 1:00 PM EST Medication Management [facility] [address] [place] [address] Chnael Mark, PharmD [address] [place] [address] 09/11/2025 1:30 PM EDT Office Visit [facility] [address] [place] [address] Bria Sanz Health Maintenance Due Date Last Done Comments CT Colonography 1965 Colonoscopy 1965 Colorectal Cancer Screening 1965 FIT DNA/Cologuard 1965 FIT 1965 FOBT 1965 Sigmoidoscopy 1965 Alcohol/Substance Use Screening 1976 Zoster Vaccines (1 of 2) 2014 DTaP/Tdap/Td Vaccines (2 - Td or Tdap) 01/03/2022 01/04/2012 SDOH Screening 08/14/2024 08/15/2023 COVID-19 Vaccine (2 - season) 2025 01/14/2021 Influenza Vaccine (#1) [...] X-Ray: Bitewings 03/13/2026 03/12/20 25, 09/15/2023, 02/14/2023 Diabetes: Urine Protein Screening 03/19/2026 03/19/2025, 01/12/2023, 01/28/2022, Additional history exists Lipid Panel 03/19/2026 03/19/2025, 11/21, 01/12/2023, Additional history exists Tobacco Screening 03/25/2026 03/25/2025 Eye Exam 08/05/2026 08/05/2024, 07/20, 08/05/2024, Additional [...] Name Priority Date/Time Associated Diagnosis Comments DENTURE FOLLOWUP Routine 03/25/2025 9:30 AM EST CASE PRESENTATION, DETAILED AND EXTENSIVE TREATMENT PLANNING Routine 03/21/2025 1:30 PM EDT 23 ADD CLASP TO EXISTING PARTIAL DENTURE - PER TOOTH Routine 03/21/2025 1:30 PM EDT 26 ADD CLASP TO EXISTING PARTIAL DENTURE - PER TOOTH Routine 03/21/2025 1:30 PM EDT TSH W/REFLEX TO FT4 Routine 03/19/2025 1 0:54 AM EDT ALBUMIN, RANDOM URINE W/CREATININE Routine 03/19/2025 10:54 AM EDT Type 2 diabetes mellitus with hyperglycemia, without long-term current use of insulin (HCC) LIPID PANEL, STANDARD Routine 03/19/2025 10:54 AM EDT Type 2 diabetes mellitus with hyperglycemia, without long-term current use of insulin (HCC) COMPREHENSIVE METABOLIC PANEL Routine 03/19/2025 10:54 AM EDT Type 2 diabetes mellitus with hyperglycemia, without long-term current use of insulin (HCC) DENTURE IMPRESSION Routine 03/19/2025 10 :30 AM [...] AM EDT Screening examination for venereal disease from Last 3 Months or Most Recently Relevant to Health Maintenance Results * TSH with Reflex to Free T4 (03/19/2025 10:54 AM EDT) TSH reflex Free T4 2.00 0.32 - 4.0 uIU/mL [facility] 03/19/2025 10:5 4 AM EDT 03/19/2025 1:13 PM EDT Generic External Data Provider LAB BLOOD ORDERAB LES Final Result Performing Organization Address [facility] Co de Phone Number [facility] [address] [place] [phone] * Albumin, Random Urine W/Creatinine (03/19/2025 10:54 AM EDT) Creatinine, Urine 70.08 mg/dL [facility] Microalbumin Urine 9.0 mg/L [facility] Microalbum Creatinine Ratio Ur 12.8 <30 ug/mg cr [facility] Comment:Albumin/Creatinine R atio Reference Ranges: Normal: < 30 ug/mg creatinine Microalbuminuria: 30 - 300 ug/mg creatinineClinical Albuminuria: > 300 ug/mg creatinine Urine (Urine, Random) 03/19/2025 10:54 AM EDT 03/19/2025 1:00 PM EDT Weston Lagunas MD LAB URINE ORDERABLES Final Resul t Performing Organization Address [facility]/ZIP Co de Phone Number [facility] [address] [place] [phone] * Lipid Panel, Standard (03/19/2025 10:54 AM EDT) Triglycerides 75 <150 mg/dL [facility] Comment:Desirable Triglyceri de: less than 150 mg/dLBorderline High Triglyceride 150-199 mg/dLHigh Triglyceride: 200-499 mg/dLVery High Triglyceride: greater than or equal to 5OO mg/dL Cholesterol 116 <200 mg/dL [facility] Comment:Desirable Cholestero l: less than 200 mg/dLBorderline High Cholesterol: 200-239 mg/dLHigh Cholesterol: greater than 239 mg/dL LDL Cholesterol Calculated 58 <100 mg/dL [facility] Comment:Desirable LDL: less than 100 mg/dLNear Optimal/Above Optimal LDL: 110- 129 mg/dLBorderline High LDL: 130-159 mg/dLHigh LDL: 160-189 mg/dLVery High LDL: greater than or equal to 190 mg/dL HDL Cholesterol 43 >40 mg/dL [facility] Comment:Desirable HDL: great er than 40 mg/dL Note: This HDL assay may give artificially low results in patients with liver disease. Blood Venous blood specimen / Unknown 03/19/2025 10:54 AM EDT 03/19/2025 1:13 PM EDT us Weston Name LAB BLOOD ORDERABLES Final Resul t [facility] [address] [place] [phone] * (ABNORMAL) Comprehensive Metabolic Panel (03/19/2025 10:54 AM EDT) Sodium 142 135 - 145 mmol/L [facility] Potassium 4.2 3.3 - 5.1 mmol/L [facility] Chloride 107 96 - 108 mmol/L [facility] Carbon Dioxide 29 22 - 29 mmol/L [facility] Anion Gap 10(L) 12 - 20 [facility] Urea Nitrogen (BUN) 15 9 - 16 mg/dL [facility] Creatinine, Serum 0.64 0.5 - 1.4 mg/dL [facility] Estimated Glomerular Filt Rate >60 [facility] Comment:Chronic Kidney Disea se: Estimated GFR < 60 mL/min/[id number] Kidney Disease: Estimated GFR < 15 mL/min/1.73m2 Glucose 131(H) 60 - 115 mg/dL [facility] Calcium 10.2 8.4 - 10.2 mg/dL [facility] Bilirubin, Total 0.3 0.0 - 1.0 mg/dL [facility] Aspartate Amino Transferase 25 5 - 31 U/L [facility] Alanine Aminotransferase 12 0 - 31 U/L [facility] Total Protein 7.1 6.5 - 8.0 g/dL [facility] Albumin Level 4.2 3.5 - 5.0 g/dL [facility] Alkaline Phosphatase 86 39 - 117 U/L [facility] Blood Venous blood specimen / Unknown 03/19/2025 10:54 AM EDT 03/19/2025 1:13 PM EDT us Weston Lagunas MD LAB BLOOD ORDERABLES Final Resul t [facility] [address] [place] [phone] * (ABNORMAL) POCT Glucose (03/12/2025 9:31 AM EDT) Glucose Blood, POC 288(A) 60 - 200 mg/dL QC Media Lot # [id number] Lot# Expiration Date Blood Capillary blood specimen / Unknown 03/12/2025 9:31 AM EDT us Radha Shah PEANUT SEPARATOR POINT OF CARE TEST ENTER/EDIT ORDERABLES Final Result * (ABNORMAL) POCT Hgb A1c (02/10/2025 12:08 PM EDT) Hemoglobin A1C 8.3(A) 4.0 - 5.7 % Blood 02/10/2025 12:0 8 PM EDT Result Edwin Lagunas MD POINT OF CARE TEST ENTER/EDIT OR DERABLES Final Result * BI Mammogram Screening Tomosynthesis Bilateral (11/12/2024 11:02 AM EDT) Anatomical Region Laterality Modality Breast Bilateral Mammography 11/12/2024 11:0 2 AM EDT Narrative 11/15/2024 5:37 PM EDT [facility] [address] [place] [address] Mammography Report Signed Patient: Pepper Rothman MR#: [id number] 37 : 1965 Acct:[id number] Age/Sex: 58 / F ADM Date: 11/12/24 Loc: HO.MAMMO Attending Dr: Weston Lagunas MD Ordering Physician: Weston Lagunas MD Results: 2Benign Fi ndings Date of Service: 11/12/24 Follow Up: 1 Year From Orig ina Mammogram Procedure(s): MM tomosynthesis screening BI Accession Number(s): [id number] cc: Weston Lagunas MD EXAMINATION: MM SCREENING [...] 11/15/24 1734 DD/ 1102 TD/TT: 11/12/24 1122 It Sales Consultant: Procedure Note Donotuseinterpreter, Image - 11/15/2024 [facility] [address] [place] [address] Mammography Report Signed Patient: Susannah Rothman#: [id number] 37 : 1965Acct:[id number] Age/Sex: 58 / FADM Date: 11/12/24 Loc: HO.MAMMO Attending Dr: Weston Lagunas MD Ordering Physician: Weston Lagunas MDResults: 2Benign Fi ndings Date of Service: 11/12/24Follow Up: 1 Year From Orig ina Mammogram Procedure(s): MM tomosynthesis screening BI Accession Number(s): [id number] cc: Weston Lagunas MD EXAMINATION: MM SCREENING [...] 11/15/24 1734 DD/ 1102 TD/TT: 11/12/24 1122 It Sales Consultant: Weston Lagunas MD IM BI PROCEDURES Final Result * HIV-1/2 Antigen and Antibodies, Fourth Generation, with Reflexes (10/17/2024 2:07 PM EDT) HIV AB/AG Nonreactive Nonreactive [facility] Comment:HIV-1 p24 Ag and/or HIV-1/HIV-2 Ab not detected.A test result that is nonreactive does not exclude thepossibility of exposure to or infection with HIV-1 and/orHIV-2. Nonreactive results in this assay for individualswith prior exposure to HIV-1 and/or HIV-2 may be due toantigen and antibody levels that are below the limit ofdetection of this assay.The [employer] HIV Ag/Ab Combo assay result andsupplemental assay results should be interpreted inconjunction with the patient's clinical presentation,history and other laboratory results. If the results areinconsistent with clinical evidence, additional testing issuggested to confirm the result. Blood Venous blood specimen / Unknown 10/17/2024 2:07 PM EDT 10/17/2024 4:01 PM EDT us Juan Costa [facility] LAB BLOOD ORDERABLES Chio tanner Result [facility] [address] [place] [phone] * HPV DNA, Low/High Risk (10/17/2024 1:57 PM EDT) HPV High Risk Negative Negative [facility] HPV Genotype 16 Negative Negative [facility] HPV Genotype 18 Negative Negative [facility] Comment:HPV testing performe d at [facility] (CLIA#[id number]), [address] [place] [address].Testing for HPV was performed using the [employer] 6800system. The presence of HPV in [...] PM EDT 10/18/2024 10:35 AM EDT Juan Costa CNM LAB BLOOD ORDERABLES Chio ciro Result [facility] [address] [place] [phone] * Pap Smear (10/17/2024 1:57 PM EDT) Swab Cervix uteri structure / Unknown 10/17/2024 1:57 PM EDT 10/18/2024 10:35 AM EDT Narrative [facility] - 10/23/2024 10:35 AM EDT ----- ------- Name: Pepper Rothman Age/Sex: 58/F : 1965 Unit#: [id number] Attend Dr: JUAN COSTA CNM Re10/17/24 Status: DEP REF Location: HO.HHCL Disch: ----- ------- SPEC : [id number] RECD: 10/18/24 STATUS: BRIANNA TEE NUM: [id number] MARILIN: 10/17/24-[address] [facility] [address]: JUAN COSTA CNM ENTERED: 10/18/24 SP TYPE: Pap Smr OT DR: ORDERED: Pap Smear Interpretation Satisfactory for [...] and HPV testing will be performed at [facility] (CLIA #[id number]), [address] [place] [address]. Testing for HPV was performed using the [...] detected. All professional services are performed by [facility] ([address] [place], [place] [id number]; ; CLIA #[id number]). The PAP Test is a screening procedure with the inherent possibility of both false negative and false positive results. Results should be interpreted in the context of historic and current clinical findings. Reliability of the PAP Test is enhanced by performing the test on a regular repetitive basis. CONTINUED ON NEXT PAGE ----- ------- Name: Pepper Rothman Age/Sex: 58/F : 1965 Unit#: [id number] Attend Dr: JUAN COSTA CNM Re10/17/24 Status: DEP REF Location: [facility] Disch: ----- ------- SPEC : [id number] RECD: 10/18/24-1034 STATUS: BRIANNA TEE NUM: [id number] MARILIN: 10/17/24-[address] [facility] [address]: JUAN COSTA CNM ENTERED: 10/18/24-1047 SP TYPE: Pap Juan MERCHANT DR: ORDERED: Pap Smear ----- ------- Signed (signature on file) LAITH Haddad ([facility]) 10/23/24 1035 ----- ------- END OF REPORT Juan Costa CNM LAB CYTOLOGY ORDERABLES F inal Result [facility] [address] [place] [phone] * Hepatitis C Antibody with Reflex to HCV, RNA, Quantitative, Real-Time PCR (12/19/2023 9:45 AM EDT) Hepatitis C Antibody Nonreactive Nonreactive [facility] Comment:Antibodies to HCV no t detected; does not exclude early acuteHCV infection. Blood Venous blood specimen / Unknown 12/19/2023 9:45 AM EDT 12/19/2023 11:27 AM EDT us Juan Costa [facility] LAB BLOOD ORDERABLES Chio tanner Result [facility] [address] [place] [phone] from Last 3 Months or Most Recently Relevant to Health Maintenance Insurance [facility] C3 DENTAL-[facility] MEDICAID STAND ADULT Care Teams Director Of Plant Operations Relationship Specialty Start Date End Date Name, MD Weston [address] [place], [place] PCP - General Family Medicine 07/24/15 Chanel Mark PharmD [address] [place], [place] Pharmacist Internal Medicine 04/04/22 Silver Contrears Briquette Machine OperatorGaming Commissioner 04/20/23
--- OUTSIDE RECORDS SUMMARY | 2025-04-02 17:28 | XMS_ITS | Encounter Summary ---
Author Organization [employer] Address 75 [facility] 7t [place] [address] Care Team Providers Care Imaging Clerk Name Role Phone Name, Weston FLOWER Primary Care Provider [phone] Chanel Mark PharmD Unavailable [phone] Reason for Visit * Reason Onset Date Comments Referral 01/31/2025 Encounter Details Date Type Department Care Team ([facility] st Contact Info) Description 01/31/2025 Telephone [facility] [address] [place], [place] [phone] Name, MD Weston [address] [place] [address] Referral Social History Tobacco Use Types Packs/Day [...] AM EDT T/C to pt via S Raisin Washer Cornelio #[id number]. Pt confirms that she would like a new vascular referral. States she does not want to be seen at [facility]. States she has no specific office in mind but heard there was a vein specialist in [place]. Pt c/o intermittent 6-/7/10 pain to BLE [...] 01/31/2025 10:03 AM EDT TC from [place], Licensed Loan Officer Assistant with [employer], requesting a new referral for vascular surgery. Pt does not wants to be seen in [facility] Contact [place] at [phone] Or pt [phone] (need cupola charger) documented in this encounter Plan of Treatment Upcoming Encounters Date Type Department Care Team ([facility] st Contact Info) Description 04/28/2025 11:00 AM EST Office Visit [facility] [address] [place] [phone] Name, MD Weston [address] [place] [address] 05/08/2025 1:00 PM EST Medication Management [facility] [address] [place] [phone] PuiaChanel, PharmD [address] [place] [address] 09/11/2025 1:30 PM EDT Office Visit [facility] [address] [place] [address] Bria Sanz documented as of this encounter [...] documented as of this encounter Care Teams Imaging Clerk Relationship Specialty Start Date End Date Weston Lagunas MD [address] [place] [address] PCP - General Family Medicine 07/24/15 PuiaAnamChanel, PharmD [address] [place] [address] Pharmacist Internal Medicine 04/04/22 Silver Contreras Sustainability Purchasing AgentCore Checker 04/20/23 documented as of this encounter
--- OUTSIDE RECORDS SUMMARY | 2025-04-02 17:28 | XMS_ITS | Encounter Summary ---
Author Organization [employer] Address 75 [facility] 7t [place] [address] Care Team Providers Care Quality Improvement Specialist Name Role Phone Name, Weston FLOWER Primary Care Provider [phone] Chanel Mark PharmD Unavailable [phone] Encounter Details Date Type Department Care Team (Late st Contact Info) Description 03/14/2023 Abstract [facility] [address] [place] [address] Karl, Deborah [address] [place] [address] Social History Tobacco Use Types Packs/Day Years [...] t he electric, gas, oil or water [employer] threatened to shut off services in your [...] Description 04/28/2025 11:00 AM EST Office Visit [facility] [address] [place] [phone] Name, MD Weston [address] [place] [phone] 05/08/2025 1:00 PM EST Medication Management [facility] [address] [place] [address] PuiaChanel, PharmD [address] [place] [address] 09/11/2025 1:30 PM EDT Office Visit [facility] [address] [place] [address] Bria Sanz documented as of this encounter [...] documented as of this encounter Care Teams Quality Improvement Specialist Relationship Specialty Start Date End Date Name, MD Weston [address] [place] [address] PCP - General Family Medicine 07/24/15 Chanel Mark, Connie [address] [place], [place] [address] [phone] Pharmacist Internal Medicine 04/04/22 Silver Contreras Private ChefDiaper Machine Tender 04/20/23 documented as of this encounter
--- OUTSIDE RECORDS SUMMARY | 2025-04-02 17:28 | XMS_ITS | Encounter Summary ---
Author Organization [employer] Address 75 [facility] 7t [place] [address] Care Team Providers Care Party Host/Hostess Name Role Phone Name, Weston FLOWER Primary Care Provider [phone] Chanel Mark PharmD Unavailable [phone] Reason for Visit * Reason Comments Med Refill Encounter Details Date Type Department Care Team ([facility] st Contact Info) Description 09/11/2023 Refill [facility] [address] [place] [address] Chanel Mark, PharmD [address] [place] [address] Type 2 diabetes mellitus without complication, without long-term current use of insulin ([facility]) Social History Tobacco Use Types Packs/Day [...] Description 04/28/2025 11:00 AM EST Office Visit [facility] [address] [place] [address] Name, MD Weston [address] [place] [address] 05/08/2025 1:00 PM EST Medication Management [facility] [address] [place] [address] [phone] Chanel Mark, PharmD [address] [place] [address] 09/11/2025 1:30 PM EDT Office Visit [facility] ADULT DENTAL [address] [place] [address] [phone] Bria Sanz documented as of this encounter [...] documented as of this encounter Care Teams Party Host/Hostess Relationship Specialty Start Date End Date Name, MD Weston [address] [place] [address] PCP - General Family Medicine 07/24/15 Chanel Mark PharmD [address] [place] [address] Pharmacist Internal Medicine 04/04/22 Silver Contreras Funeral AttendantPricing Strategist 04/20/23 documented as of this encounter
--- OUTSIDE RECORDS SUMMARY | 2025-04-02 17:28 | XMS_ITS | Encounter Summary ---
Author Organization [employer] Address [address] [facility] 7t [place] [address] Care Team Providers Care Grants Director Name Role Phone Name, Weston FLOWER Primary Care Provider [phone] Chanel Mark PharmD Unavailable [phone] Reason for Visit * Reason Comments Med Refill Encounter Details Date Type Department Care Team ([facility] st Contact Info) Description 06/15/2023 Refill [facility] [address] [place], [place] [phone] Name, MD Weston [address] [place] [address] 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) [...] Description 04/28/2025 11:00 AM EST Office Visit [facility] [address] [place] [address] Name, MD Weston [address] [place] [address] 05/08/2025 1:00 PM EST Medication Management [facility] [address] [place] [address] PuiaChanel, PharmD [address] [place] [address] 09/11/2025 1:30 PM EDT Office Visit [facility] ADULT DENTAL [address] [place] [address] Bria Sanz documented as of this encounter [...] documented as of this encounter Care Teams Grants Director Relationship Specialty Start Date End Date Name, MD Weston [address] [place], [place] [phone] PCP - General Family Medicine 07/24/15 Chanel Mark PharmD [address] [place], [place] [phone] Pharmacist Internal Medicine 04/04/22 Silver Contreras Wood Floor RefinisherMakeup Instructor 04/20/23 documented as of this encounter
--- OUTSIDE RECORDS SUMMARY | 2025-04-02 17:28 | XMS_ITS | Encounter Summary ---
Author Organization [employer] Address 75 [facility] 7t [place] [address] Care Team Providers Care Garbage Collector Supervisor Name Role Phone Name, Weston FLOWER Primary Care Provider [phone] Chanel Mark PharmD Unavailable [phone] Reason for Visit * Reason Comments Med Refill Encounter Details Date Type Department Care Team ([facility] st Contact Info) Description 03/26/2023 Refill [facility] [address] [place] [address] Chanel Mark, PharmD [address] [place] [address] Diabetes mellitus type 2 with complications ([facility]) Social History Tobacco Use Types Packs/Day [...] 11:00 AM EST Office Visit [facility]INE [address] [place] [address] Name, MD Weston [address] [place] [address] 05/08/2025 1:00 PM EST Medication Management [facility] [address] [place] [address] PuiaChanel, PharmD [address] [place] [address] [phone] 09/11/2025 1:30 PM EDT Office Visit [facility] ADULT DENTAL [address] [place] [address] Bria Sanz documented as of this encounter Goals Goal Patient Goal Type Associated Problems Recent Progress Patient-Stated? Author Hemoglobin A1c < 7 Result Component 8.3( 12:08 PM EDT) No Puia Chanel, PharmD Record your blood sugar as directed Result Component No PuiaAnamChanel, PharmD Note: Continue to check FBG, change PM testing time to ~2 hrs post dinner to aid in med titration. documented as of this encounter Visit Diagnoses Diagnosis Diabetes mellitus type 2 with complications (HCC) documented in this encounter Additional Health Concerns Assessment Noted Time PHQ-9 Depression Total Score: 17 023 9:08 AM EDT documented as of this encounter Care Teams Garbage Collector Supervisor Relationship Specialty Start Date End Date Name, MD Weston [address] [place] [address] PCP - General Family Medicine 07/24/15 Chanel Mark PharmD [address] [place] [address] Pharmacist Internal Medicine 04/04/22 Silver Contreras Plaster Machine OperatorCage Maker 04/20/23 documented as of this encounter
--- OUTSIDE RECORDS SUMMARY | 2025-04-02 17:28 | XMS_ITS | Encounter Summary ---
Author Organization [employer] Address 75 [facility] 7t [place] [address] Care Team Providers Care Direct Selling Counselor Name Role Phone Name, Weston FLOWER Primary Care Provider [phone] Chanel Mark PharmD Unavailable [phone] Encounter Details Date Type Department Care Team (Late st Contact Info) Description 05/18/2023 Abstract [facility] ADULT DENTAL [address] [place] [address] Karl, Deborah [address] [place] [address] Social History Tobacco Use Types Packs/Day Years [...] t he electric, gas, oil or water [employer] threatened to shut off services in your [...] Description 04/28/2025 11:00 AM EST Office Visit [facility] [address] [place] [address] Name, MD Weston [address] [place] [address] 05/08/2025 1:00 PM EST Medication Management [facility] [address] [place] [phone] PuiaChanel, PharmD [address] [place] [address] 288[address] 09/11/2025 1:30 PM EDT Office Visit [facility] ADULT DENTAL [address] [place] [address] Bria Sanz documented as of this encounter [...] documented as of this encounter Care Teams Direct Selling Counselor Relationship Specialty Start Date End Date Name, MD Weston [address] [place] [address] PCP - General Family Medicine 07/24/15 Chanel Mark, Connie [address] [place], [place] [address]Sridhar [place] [phone] Pharmacist Internal Medicine 04/04/22 Silver Contreras Return ClerkBoots And Shoes Supervisor 04/20/23 documented as of this encounter
--- OUTSIDE RECORDS SUMMARY | 2025-04-02 17:29 | XMS_ITS | Encounter Summary ---
Author Organization [employer] Address 75 [facility] 7t [place] [address] Care Team Providers Care Digital Sales Executive Name Role Phone Name, Weston FLOWER Primary Care Provider [phone] Chanel Mark PharmD Unavailable [phone] Encounter Details Date Type Department Care Team ([facility] st Contact Info) Description 03/03/2023 Abstract [facility] ADULT DENTAL [address] [place] [address] Meghana Vines DDS [address] [place], [place] [phone] Social History Tobacco Use Types Packs/Day Years [...] Description 04/28/2025 11:00 AM EST Office Visit [facility] [address] [place] [phone] Weston Lagunas MD [address] [place] [address] 05/08/2025 1:00 PM EST Medication Management [facility] [address] [place] [address] Puia, Chanel, PharmD [address] [place] [address] 09/11/2025 1:30 PM EDT Office Visit [facility] ADULT DENTAL [address] [place] [address] Bria Sanz documented as of this encounter [...] documented as of this encounter Care Teams Digital Sales Executive Relationship Specialty Start Date End Date Weston Lagunas MD [address] [place], [place] [phone] PCP - General Family Medicine 07/24/15 Chanel Mark PharmD [address] [place], [place] [phone] Pharmacist Internal Medicine 04/04/22 Silver Contreras Director Emergency ServicesHydraulic Press Operator 04/20/23 documented as of this encounter
--- OUTSIDE RECORDS SUMMARY | 2025-04-02 17:29 | XMS_ITS | Encounter Summary ---
Author Organization [employer] Address 75 [facility] 7t [place] [address] Care Team Providers Care Special Day Class Teacher Name Role Phone Name, Weston FLOWER Primary Care Provider [phone] Chanel Mark PharmD Unavailable [phone] Reason for Visit * Reason Comments Med Refill Encounter Details Date Type Department Care Team ([facility] st Contact Info) Description 03/30/2023 Refill [facility] [address] [place] [address] Name, MD Weston [address] [place] [address] Heartburn Social History Tobacco Use Types Packs/Day [...] Description 04/28/2025 11:00 AM EST Office Visit [facility] [address] [place] [address] Weston Lagunas MD [address] [place] [address] 05/08/2025 1:00 PM EST Medication Management [facility] [address] [place] [phone] Puia, Chanel, PharmD [address] [place] [address] 09/11/2025 1:30 PM EDT Office Visit [facility] ADULT DENTAL [address] [place] [address] Bria Sanz documented as of this encounter [...] documented as of this encounter Care Teams Special Day Class Teacher Relationship Specialty Start Date End Date Weston Lagunas MD [address] [place] [address] PCP - General Family Medicine 07/24/15 Chanel Mark PharmD [address] [place] [address] Pharmacist Internal Medicine 04/04/22 Silver Contreras Corporate Safety DirectorDna Analyst 04/20/23 documented as of this encounter
== END 2025-04-02 15:40 | disposition home or self-care (01) ==
LOC: HO.HGI 14:12
PROVIDERS: PCP Internal Medicine Geriatric Medicine; Visit Provider Nurse Practitioner Family
DX: K21.9 Gastro-esophageal reflux disease without esophagitis (principal); K59.00 Constipation, unspecified; D64.9 Anemia, unspecified
CPT/HCPCS: 99213

== ENCOUNTER → 2025-04-02 14:12 | Outpatient (BNVA) | payer MEDICAID, SELFPAY | PROVIDERS: PCP Internal Medicine Geriatric Medicine; Visit Provider Nurse Practitioner Family | DX: K21.9 Gastro-esophageal reflux disease without esophagitis (principal); K59.00 Constipation, unspecified; D64.9 Anemia, unspecified | CPT/HCPCS: 99212 ==

== ENCOUNTER 2025-05-06 07:01 | Day surgery (SDC) | payer MEDICAID, SELFPAY ==
--- NOTE | 2025-05-02 09:58 | HO.ANESPROP2 ---
Documented by User: Luly Avila NP 05/02/25 10:12 HPI - Anesthesia Eval Consult details Narrative: 59 yr old female for Upper Endoscopy and Colonoscopy Anesthesia Pre-Procedure Meds Is the patient on any of the following meds?: SGLT2 Inhib PMFSH Active Problems Active Problems: All Active Problems Anemia (Acute) Acid reflux (Acute) Colon cancer screening (Acute) Constipation (Acute) Varicose veins of right lower extremity with inflammation (Acute) COVID-19 (Acute) Dyspnea on exertion (Acute) Cervical polyp (Acute) Potential exposure to STD (Acute) Postmenopausal atrophic vaginitis (Acute) Well woman exam with routine gynecological exam (Acute) Past Medical History Medical History Anemia Acid reflux Colon cancer screening Constipation HLD (hyperlipidemia) HTN (hypertension) Diabetes Family History Family History Brother Cancer Surgical History Surgical History Hx of cholecystectomy Social History Social History Are you a primary customer care associate to a significant other at home: No Do you presently have visiting nurse or other home services: No Alcohol intake: never Patient Tobacco Use Status: Never used Tobacco Have you been hit, kicked, punched, or otherwise hurt by someone within the past year? If so, by whom?: No Are you DNR?: No Advance Directives: No Advance Directives Information Provided: Yes Gender identity: Female Meds Allergies Allergy/AdvReac Type Severity Reaction Status Date / Time diphenhydramine (From Allergy Unknown PALPATATION Verified 05/06/25 08:07 BENADRYL) S Home Medications ?Medication ?Instructions ?Recorded ?Confirmed ?Last Taken ?Type aspirin 81 mg tablet,delayed 81 mg PO QPM 02/19/25 05/06/25 05/04/25 History release atorvastatin 40 mg tablet 40 mg PO QAM 02/19/25 05/06/25 Unknown History calcium 600 mg (as 1 tab PO 02/19/25 02/19/25 Unknown History carbonate)-vitamin D3 10 mcg (400 unit) tablet dapagliflozin propanediol 10 mg 10 mg PO QAM 02/19/25 05/06/25 05/01/25 History tablet (Farxiga) gabapentin 100 mg capsule 100 mg PO BEDTIME 02/19/25 05/06/25 Unknown History glipizide 10 mg tablet, extended 10 mg PO QAM 02/19/25 05/06/25 Unknown History release 24 hr glipizide 5 mg tablet, extended 5 mg PO QAM 02/19/25 05/06/25 Unknown History release 24 hr lisinopril 20 mg tablet 20 mg PO QAM 02/19/25 05/06/25 Unknown History loratadine 10 mg tablet 10 mg PO QAM 02/19/25 05/06/25 Unknown History melatonin 5 mg tablet 5 mg PO BEDTIME 02/19/25 05/06/25 Unknown History metformin 1,000 mg tablet 1,000 mg PO 02/19/25 02/19/25 Unknown History multivitamin 1 tab PO QAM 02/19/25 05/06/25 Unknown History sertraline 50 mg tablet 50 mg PO QPM 02/19/25 05/06/25 Unknown History meclizine 25 mg tablet 25 mg PO TID PRN dizziness 05/06/25 05/06/25 Unknown History Exam Pertinent Lab Results Pertinent Lab Results: Laboratory Tests 02/04/24 03/19/25 19:22 10:54 WBC 10.6 RBC 4.50 Hgb 11.1 L Hct 33.0 L Plt Count 333 Sodium 142 Potassium 4.2 Chloride 107 BUN 15 Creatinine 0.64 Narrative Narrative: EKG 2023 Vent. Rate : 097 BPM Atrial Rate : 097 BPM P-R Int : 152 ms QRS Dur : 074 ms QT Int : 334 ms P-R-T Axes : 053 008 065 degrees QTc Int : 424 ms Normal sinus rhythm Nonspecific T wave abnormality Abnormal ECG When compared with ECG of 10-JUL-2022 06:38, No significant change was found Documented by User: Paul Deluca MD 05/06/25 09:52 [facility] Past Medical History Medical History Anemia Acid reflux Colon cancer screening Constipation HLD (hyperlipidemia) HTN (hypertension) Diabetes Family History Family History Brother Cancer Family history of problems with anesthesia: No Surgical History Surgical History Hx of cholecystectomy History of Problems with Anesthesia: No Social History Social History Are you a primary customer care associate to a significant other at home: No Do you presently have visiting nurse or other home services: No Alcohol intake: never Patient Tobacco Use Status: Never used Tobacco Have you been hit, kicked, punched, or otherwise hurt by someone within the past year? If so, by whom?: No Are you DNR?: No Advance Directives: No Advance Directives Information Provided: Yes Gender identity: Female Meds Allergies Allergy/AdvReac Type Severity Reaction Status Date / Time diphenhydramine (From Allergy Unknown PALPATATION Verified 05/06/25 08:07 BENADRYL) S Home Medications ?Medication ?Instructions ?Recorded ?Confirmed ?Last Taken ?Type aspirin 81 mg tablet,delayed 81 mg PO QPM 02/19/25 05/06/25 05/04/25 History release atorvastatin 40 mg tablet 40 mg PO QAM 02/19/25 05/06/25 Unknown History calcium 600 mg (as 1 tab PO 02/19/25 02/19/25 Unknown History carbonate)-vitamin D3 10 mcg (400 unit) tablet dapagliflozin propanediol 10 mg 10 mg PO QAM 02/19/25 05/06/25 05/01/25 History tablet (Farxiga) gabapentin 100 mg capsule 100 mg PO BEDTIME 02/19/25 05/06/25 Unknown History glipizide 10 mg tablet, extended 10 mg PO QAM 02/19/25 05/06/25 Unknown History release 24 hr glipizide 5 mg tablet, extended 5 mg PO QAM 02/19/25 05/06/25 Unknown History release 24 hr lisinopril 20 mg tablet 20 mg PO QAM 02/19/25 05/06/25 Unknown History loratadine 10 mg tablet 10 mg PO QAM 02/19/25 05/06/25 Unknown History melatonin 5 mg tablet 5 mg PO BEDTIME 02/19/25 05/06/25 Unknown History metformin 1,000 mg tablet 1,000 mg PO 02/19/25 02/19/25 Unknown History multivitamin 1 tab PO QAM 02/19/25 05/06/25 Unknown History sertraline 50 mg tablet 50 mg PO QPM 02/19/25 05/06/25 Unknown History meclizine 25 mg tablet 25 mg PO TID PRN dizziness 05/06/25 05/06/25 Unknown History Exam Airway Mallampati Class: II TM Dist: >3cm Loose/Missing/Broken Teeth: Yes Assessment and Plan Assessment Anesthesia Assessment: Anesthesia Plan Discussed and Chart Reviewed Final Anesthetic Review Family History of Problems with Anesthesia: No History of Problems with Anesthesia: No NPO: Yes ASA Class: II Final Preanesthetic Review: No Changes in Pt Med Stat, Meds/Allgs Chart Reviewed, Consent Obtained/Reviewed and Anes Risks/Benef Reviewed Patient Risk: Low Procedure Risk: Low Anesthetic Plan Anesthetic Plan: MAC: Disposition: Standard PACU
[2025-05-06 08:05] VITALS: BMI 22.6
[2025-05-06] MEDS: Lactated Ringers 1,000 ML 100 ML IVCONT (08:22)
[2025-05-06 08:34] LABS: Glucose, Whole Blood 132 mg/dL (60-115)
--- NOTE | 2025-05-06 08:42 | MHC.SHP ---
Pre-Procedural Eval Section A - 24 Hr Update-Section A only Date of Service: 05/06/25 Section B - Complete if H&P > 30 days Chief Complaint: anemia, GERD Details of Present Illness: Acid reflux Colon cancer screening Constipation HLD (hyperlipidemia) HTN (hypertension) Diabetes Surgical History (Reviewed 04/02/25 @ 14:58 by Nahun Valladares [facility] Hx of cholecystectomy Present Medications: see Short Stay Collaborative assessment Allergies: Allergies Allergy/AdvReac Type Severity Reaction Status Date / Time diphenhydramine (From Allergy Unknown PALPATATION Verified 05/06/25 08:07 BENADRYL) S Review of Systems Review of Systems Comment: Ten point ROS negative Exam Exam Comment: Gen appear: No acute distress HEENT: no icterus Chest: No overt resp distress Abd: soft, nontender, nondistended Psych: Stable affect, answering questions appropriately Neuro: A/Ox3 noted to move all extremities spontaneously Ext: no peripheral edema Plan Diagnosis/Plan: Unchanged I have reviewed the history and physical and performed a pertinent physical examination on my patient. No changes have occurred unless specified. Time Spent With Patient Time: Total time managing care of this patient today ____ minutes.
[2025-05-06 08:46] VITALS: BP 142/64; PULSE 81; RESP 18; TEMP 36.6; O2SAT 99
--- NOTE | 2025-05-06 10:37 | P.OPN-COLO_ITS ---
Colonoscopy Operative Note Operative Note Date of Service: 05/06/25 Narrative: Procedure: Upper endoscopy and colonoscopy Indication: Dysphagia, anemia Endoscopist: Sandra Granda MD Anesthesia Provider: Dr Deluca Anesthesia type: MAC Instrument: [id number] and [id number] EGD Procedure:?? The procedure, indications, preparation and potential complications were reviewed with the patient with the help of sales agent marine insurance, who indicated understanding and gave written informed consent to proceed. The endoscope was introduced through the mouth, and advanced to the 2nd part of the duodenum. The mucosa was carefully examined on slow withdrawal of the endoscope. The patient tolerated the procedure well. There were no immediate complications.? EGD Findings:? * Esophagus:? Normal esophageal mucosa was noted. The Z-line was at 33 cm displaced by a hiatal hernia. Cold forceps biopsies were taken from middle and lower esophagus to rule out Eosinophilic esophagitis. * Stomach:? Normal gastric mucosa was noted but rugal folds were prominent and stomach could not be insufflated adequately despite multiple attempts. Random cold forceps biopsies were taken from the stomach. * Duodenum:? Normal duodenal mucosa. Cold forceps biopsies were taken from the duodenal bulb and 2nd portion of the duodenum to rule out celiac sprue. Additional intervention: Soft tip Savary wire was introduced through the biopsy channel of the gastroscope and advanced to the antrum. ?The gastroscope was then backed out. ?Savary Karen bougie was advanced over the guidewire and the esophagus was dilated to 17 mm without any resistance felt. ?On relook, no heme or tear was noted. ? Colonoscopy Procedure:? The patient was then turned for the colonoscopy. A digital rectal exam was performed which was normal.? A distal attachment cap was affixed to the tip of the scope and the colonoscope was then inserted through the anus and advanced through the colon and advanced to the cecum at 75 cm and terminal ileum.? Appendiceal orifice and ileocecal valve were identified. Mucosa was carefully examined under high definition white light as the instrument was slowly withdrawn in a retrograde panoramic fashion. Retroflexion was performed in rectum. The procedure was not difficult. The quality of the prep was BBPS: 3+2+3 = adequate Withdrawal time 31 minutes Limitations: No limitations Findings: Mucosa: Normal colon mucosa. There was fresh blood noted in terminal ileum. Initially the terminal ileum could only be intubated to 15 cm. Endomark was placed to tattoo the site. However on 2nd attempt with LLQ pressure, deep T.I intubation of at least 35 cm was achieved. There was a bleeding AVM noted at 25 cm of intubation. This was completely ablated with APC using a straight fire catheter. A second endomark was placed at the distal most extent of T.I reached. Protruding lesions: * A subepithelial lesion measuring 2 cm noted in hepatic flexure/ascending colon. This was unroofed with a cold snare revealing fatty tissue underneath. Cold forceps biopsies were taken for histology. * Large internal hemorrhoids without stigmata of recent bleeding. Impression: 1. Normal esophagus (biopsy, dilation) 2. Hypertrophic gastropathy (biopsy) 3. Normal duodenum (biopsy) 4. Actively bleeding small bowel AVM (APC, endomark) 5. Ascending colon nodule ? lipoma (biopsy) 6. Internal and external hemorrhoids Recommendations:?? * Follow-up path results * Avoid NSAIDs * Recommend UGIS as well as CT scan for gastric hypertrophy to r.o malignancy. CT enterography preferred, as will also be able to evaluate small bowel * Asymptomatic colorectal cancer screening recommended in 10 years
[2025-05-06 10:48] VITALS: BP 91/51; PULSE 77; RESP 24; TEMP 36.3; O2SAT 98
[2025-05-06 11:03] VITALS: BP 104/60; PULSE 64; RESP 12; O2SAT 99
[2025-05-06 11:18] VITALS: BP 109/59; PULSE 72; RESP 13; O2SAT 99
[2025-05-06 11:33] VITALS: BP 118/58; PULSE 63; RESP 18; TEMP 37.4; O2SAT 99
== END 2025-05-06 12:09 | disposition home or self-care (01) ==
PROVIDERS: PCP Internal Medicine Geriatric Medicine; Visit Provider Internal Medicine
PROC: (CPT 45385; principal; 2025-05-06 09:20)
DX: Z12.11 Encounter for screening for malignant neoplasm of colon (principal); K21.9 Gastro-esophageal reflux disease without esophagitis; D64.9 Anemia, unspecified; E11.9 Type 2 diabetes mellitus without complications; K59.00 Constipation, unspecified; K64.4 Residual hemorrhoidal skin tags; K64.8 Other hemorrhoids; K55.8 Other vascular disorders of intestine; K63.5 Polyp of colon
CPT/HCPCS: 45385; 45381; 43239; 43248; 82947; 88305; 88313; 88341; 88342; C1769; C1889; J2704

== ENCOUNTER → 2025-05-06 07:01 | Outpatient (BNV) | payer MEDICAID, SELFPAY | PROVIDERS: PCP Internal Medicine Geriatric Medicine; Visit Provider Internal Medicine | DX: K21.9 Gastro-esophageal reflux disease without esophagitis (principal); K31.89 Other diseases of stomach and duodenum; D64.9 Anemia, unspecified; K55.21 Angiodysplasia of colon with hemorrhage; K63.5 Polyp of colon; K64.8 Other hemorrhoids | CPT/HCPCS: 43239; 43248; 45380; 45382 ==

== ENCOUNTER 2025-05-14 12:47 | Outpatient (AMB) | payer MEDICAID, SELFPAY ==
--- OUTSIDE RECORDS SUMMARY | 2025-05-14 12:50 | XMS_ITS | Encounter Summary ---
Author Organization [employer] Address 75 [facility] 7t [place] [address] Care Team Providers Care Counter Dish Carrier Name Role Phone Name, Weston FLOWER Primary Care Provider [phone] Chanel Mark PharmD Unavailable [phone] Reason for Visit * Reason Comments Med Refill Encounter Details Date Type Department Care Team ([facility] st Contact Info) Description 06/15/2023 Refill [facility]INE [address] [place], [place] [phone] Name, MD Weston [address] [place] [address] 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) [...] Care Team (Late st Contact Info) Description 06/11/2025 2:30 PM EST Medication Management [facility]INE [address] [place] [address] Chanel Mark, PharmD [address] [place] [address] 08/13/2025 2:00 PM EDT Office Visit [facility] OPTOMETRY [address] [place] [address] Tarka, Jazmin, OD [address] [place] [address] 09/11/2025 1:30 PM EDT Office Visit [facility] ADULT DENTAL [address] [place] [address] Bria Sanz documented as of this encounter Goals Goal Patient Goal Type Associated Problems Recent Progress Patient-Stated? Author Hemoglobin A1c < 7 Result Component 7.9( 10:53 AM EST) No ConneriaAnamChanel, PharmD Record your blood sugar as directed Result Component No Chanle Mark, PharmD Note: Continue to check FBG, change PM testing time to ~2 hrs post dinner to aid in med titration. documented as of this encounter Visit Diagnoses Diagnosis Diabetes mellitus type 2 with complications (HCC) documented in this encounter Additional Health Concerns Assessment Noted Time PHQ-9 Depression Total Score: 17 023 9:08 AM EDT documented as of this encounter Care Teams Counter Dish Carrier Relationship Specialty Start Date End Date Name, MD Weston [address] [place], [place] [phone] PCP - General Family Medicine 07/24/15 Chanel Mark PharmD [address] [place], [place] [phone] Pharmacist Internal Medicine 04/04/22 Silver Contreras Consulting Utility ForesterHome Health Outreach Coordinator 04/20/23 documented as of this encounter
--- OUTSIDE RECORDS SUMMARY | 2025-05-14 12:50 | XMS_ITS | Encounter Summary ---
Author Organization [employer] Address [address] [facility] 7t [place] [address] Care Team Providers Care Underground Truck Operator Name Role Phone Name, Weston FLOWER Primary Care Provider [phone] Chanel Mark PharmD Unavailable [phone] Reason for Visit * Reason Comments Med Refill Encounter Details Date Type Department Care Team ([facility] st Contact Info) Description 09/11/2023 Refill [facility] MEDICINE [address] [place] [address] Chanel Mark, PharmD [address] [place] [address] Type 2 diabetes mellitus without complication, without long-term current use of insulin ([facility]) Social History Tobacco [...] with others, in a [place], in a [place], living outside on the street, on a [...] Description 06/11/2025 2:30 PM EST Medication Management [facility] MEDICINE [address] [place] [address] Chanel Mark, PharmD [address] [place] [address] 08/13/2025 2:00 PM EDT Office Visit [facility] OPTOMETRY [address] [place] [address] Tarka, Jazmin, OD [address] [place] [address] 09/11/2025 1:30 PM EDT Office Visit [facility] ADULT DENTAL [address] [place] [address] Bria Sanz documented as of this encounter Goals Goal Patient Goal Type Associated Problems Recent Progress Patient-Stated? Author Hemoglobin A1c < 7 Result Component 7.9( 10:53 AM EST) No Chanel Mark, PharmD Record your blood [...] documented as of this encounter Care Teams Underground Truck Operator Relationship Specialty Start Date End Date Name, MD Weston [address] [place] [address] PCP - General Family Medicine 07/24/15 Chanel Mark PharmD [address] [place] [address] Pharmacist Internal Medicine 04/04/22 Silver Contreras Radiographer AngiogramHybrid Technologist 04/20/23 documented as of this encounter
--- OUTSIDE RECORDS SUMMARY | 2025-05-14 12:50 | XMS_ITS | Encounter Summary ---
Author Organization [employer] Address [address] [facility] 7t [place] [address] Care Team Providers Care Marble Installer Supervisor Name Role Phone Name, Weston FLOWER Primary Care Provider [phone] Chanel Mrak PharmD Unavailable [phone] Encounter Details Date Type Department Care Team (Latest Contact Info) Description 12/08/2020 Abstract [facility] CONVERSIONS Dental, Provider, DDS Social History Tobacco [...] Description 06/11/2025 2:30 PM EST Medication Management [facility] MEDICINE [address] [place] [address] Chanel Mark, PharmD [address] [place] [address] 08/13/2025 2:00 PM EDT Office Visit [facility] OPTOMETRY [address] [place] [address] TarJazmin cheng, OD [address] [place] [address] 09/11/2025 1:30 PM EDT Office Visit [facility] ADULT DENTAL [address] [place] [address] Bria Sanz documented as of this encounter Visit Diagnoses Not on filedocumented in this encounter Care Teams Marble Installer Supervisor Relationship Specialty Start Date End Date Name, MD Weston [address] [place], [place] [phone] PCP - General Family Medicine 07/24/15 Chanel Mark PharmD [address] [place] [address] Pharmacist Internal Medicine 04/04/22 Silver Contreras Astronomy InstructorDay Care Assistant 04/20/23 documented as of this encounter
--- OUTSIDE RECORDS SUMMARY | 2025-05-14 12:50 | XMS_ITS | Encounter Summary ---
Author Organization [employer] Address [address] [facility] 7t [place] [address] Care Team Providers Care Patient Safety Manager Name Role Phone Name, Weston FLOWER Primary Care Provider [phone] Chanel Mark PharmD Unavailable [phone] Reason for Visit * Reason Onset Date Comments Medication Question 05/05/2025 Encounter Details Date Type Department Care Team ([facility] st Contact Info) Description 05/05/2025 Telephone [facility] MEDICINE [address] [place] [address] Name, MD Weston [address] [place] [address] Medication Question Social History Tobacco Use Types Packs/Day Years [...] in a car, or in a park 04/28/[address] you li ve. Do you have problems with any of the following? None of the above 04/28/2025 Food Insecurity Answer Date Recorded Within the past 12 months, y ou worried that your food would run out before you got money to buy more: Never True 2024 Within the past 12 months,th e food you bought just didn't last and you didn't have enough money to get more: Sometimes True 04/28/2025 Transportation Answer Date Recorded In the past 12 months, has l ack of transportation kept you from medical appts, meetings, work or from getting things needed for daily living? Yes, it has kept me from medical appointments or getting medications. 04/28/2025 Utilities Answer Date Recorded In the past 12 months, has t he electric, gas, oil or water company threatened to shut off services in your home? I am not sure 04/28/2025 Depression Answer Date Recorded Patient Health Questionnaire-2 Score 3 11/12/2024 Internet Access Answer Date Recorded Internet Access Q1 I am not sure 04/28/2025 Internet Access Q2 Not on file 04/28/2025 Comments No Sex and Gender Information Value Date Recorded Sex Assigned at Female 03/21/2022 10:14 AM EDT Legal Sex Female 10:14 AM EDT Gender Identity Female 11/12/2024 12:55 PM EDT Sexual Orientation Straight 03/21/2022 10 :14 AM EDT documented as of this encounter Miscellaneous Notes * Telephone Encounter - Sonia Mcgee RN - 05/09/2025 10:12 AM EST Pt procedure already completed on 05/06/25 and results available to view under encounters. Pt is tofollow up with PCP as needed. * Telephone Encounter - Opal Bergeron - 05/05/2025 11:27 AM EST Tc from pt requesting a call back to get clarification on which medication she needs to stop takingbefore colonoscopy Contact pt at [phone] documented in this encounter Plan of Treatment Upcoming Encounters Date Type Department Care Team (Late st Contact Info) Description 06/11/2025 2:30 PM EST Medication Management [facility] MEDICINE [address] [place] [address] Chanel Mark PharmD [address] [place] [address] 08/13/2025 2:00 PM EDT Office Visit [facility] OPTOMETRY [address] [place] [address] TarJazmin cheng, OD [address] [place] [address] 09/11/2025 1:30 PM EDT Office Visit [facility] ADULT DENTAL [address] [place] [address] Bria Sanz documented as of this encounter Goals Goal Patient Goal Type Associated Problems Recent Progress Patient-Stated? Author Hemoglobin A1c < 7 Result Component 7.9( 10:53 AM EST) No Chanel Mark, Connie Record your blood sugar as directed Result Component No Chanel Mark PharmD Note: Continue to check FBG, change PM testing time to ~2 hrs post dinner to aid in med titration. Help patients manage their type 2 diabetes Care Plan Help patients manage their type 2 diabetes No Ishmael Harrington Weekly blood pressure task Care Plan Weekly blood pressure task No Ishmael Harrington Help patients manage their type 2 diabetes Care Plan Help patients manage their type 2 diabetes No Ishmael Harrington Patient has chronic kidney disease Care Plan Patient has chronic kidney disease No Ishmael Harrington Weekly blood pressure task Care Plan Weekly blood pressure task No Ishmael Harrington Patient has chronic kidney disease Care Plan Patient has chronic kidney disease No Ishmael Harrington Weekly blood pressure task Care Plan Weekly blood pressure task No Trish Steinberg, OD Weekly blood pressure task Care Plan Weekly blood pressure task No Dipesh Steinbergn, OD Patient has chronic kidney disease Care Plan Patient has chronic kidney disease No Dipesh Steinbergn, OD Patient has chronic kidney disease Care Plan Patient has chronic kidney disease No Trish Steinberg, OD Weekly blood pressure task Care Plan Weekly blood pressure task No Kannan Jones [place] Weekly blood pressure task Care Plan Weekly blood pressure task No Kannan Jones [place] Patient has chronic kidney disease Care Plan Patient has chronic kidney disease No Kannan Jones [place] Patient has chronic kidney disease Care Plan Patient has chronic kidney disease No Kannan Jones [place] Weekly blood pressure task Care Plan Weekly blood pressure task No SantchiaragoaguiOpal mcdowell Weekly blood pressure task Care Plan Weekly blood pressure task No SantiagoaguiOpal mcdowell Patient has chronic kidney disease Care Plan Patient has chronic kidney disease No SantatiyauiOpal mcdowell Patient has chronic kidney disease Care Plan Patient has chronic kidney disease No Opal [place] documented as of this encounter Visit Diagnoses Not on filedocumented in this encounter Additional Health Concerns Active Problems Noted Date Diagnosed Date Help patients manage their type 2 diabetes 04/03 Weekly blood pressure task 04/03/2025 Help patients manage their type 2 diabetes 04/03 Patient has chronic kidney disease 04/03/2025 Weekly blood pressure task 04/03/2025 Patient has chronic kidney disease 04/03/2025 Weekly blood pressure task 04/11/2025 Weekly blood pressure task 04/11/2025 Patient has chronic kidney disease 04/11/2025 Patient has chronic kidney disease 04/11/2025 Weekly blood pressure task 04/28/2025 Weekly blood pressure task 04/28/2025 Patient has chronic kidney disease 04/28/2025 Patient has chronic kidney disease 04/28/2025 Weekly blood pressure task 05/05/2025 Weekly blood pressure task 05/05/2025 Patient has chronic kidney disease 05/05/2025 Patient has chronic kidney disease 05/05/2025 Assessment Noted Time PHQ-9 Depression Total Score: 13 024 2:51 PM EDT documented as of this encounter Care Teams Patient Safety Manager Relationship Specialty Start Date End Date Name, MD Weston [address] [place] [address] PCP - General Family Medicine 07/24/15 Chanel Mark PharmD [address] [place] [address] Pharmacist Internal Medicine 04/04/22 Silver Contreras Sales Financial AnalystWeatherstrip Machine Operator 04/20/23 documented as of this encounter
--- OUTSIDE RECORDS SUMMARY | 2025-05-14 12:50 | XMS_ITS | Encounter Summary ---
Author Organization [employer] Address [address] [facility] 7t [place] [address] Care Team Providers Care Director Of Instrumental Music Name Role Phone Name, Weston FLOWER Primary Care Provider [phone] Chanel Mark PharmD Unavailable [phone] Reason for Visit * Reason Comments Med Refill Encounter Details Date Type Department Care Team ([facility] st Contact Info) Description 07/18/2023 Refill [facility] MEDICINE [address] [place], [place] [phone] Elen Watters MD [address] [place] [address] 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) [...] Description 06/11/2025 2:30 PM EST Medication Management [facility] MEDICINE [address] [place] [address] Chanel Mark, PharmD [address] [place] [address] 08/13/2025 2:00 PM EDT Office Visit [facility] OPTOMETRY [address] [place] [address] Tarka, Jazmin, OD [address] [place] [address] 09/11/2025 1:30 PM EDT Office Visit [facility] ADULT DENTAL [address] [place] [address] Bria Sanz documented as of this encounter [...] of this encounter Care Teams Director Of Instrumental Music Relationship Specialty Start Date End Date Name, MD Weston [address] [place], [place] [phone] PCP - General Family Medicine 07/24/15 Chanel Mark PharmD [address] [place], [place] [phone] Pharmacist Internal Medicine 04/04/22 Silver Contreras Children CounselorRadio Station Audio Engineer 04/20/23 documented as of this encounter
--- OUTSIDE RECORDS SUMMARY | 2025-05-14 12:50 | XMS_ITS | Encounter Summary ---
Author Organization [employer] Address [address] [facility] 7t [place] [address] Care Team Providers Care Inside Sales Supervisor Name Role Phone Name, Weston FLOWER Primary Care Provider Chanel Mark PharmD Unavailable Encounter Details Date Type Department Care Team (Late st Contact Info) Description 05/18/2023 Abstract [facility] ADULT DENTAL [address] [place] [address] Karl, Deborah [address] [place] [address] Social History Tobacco Use Types Packs/Day Years [...] t he electric, gas, oil or water [employer] threatened to shut off services in your [...] Description 06/11/2025 2:30 PM EST Medication Management [facility] MEDICINE [address] [place] [address] Chanel Mark, PharmD [address] [place] [address] 08/13/2025 2:00 PM EDT Office Visit [facility] OPTOMETRY [address] [place] [address] Tarka, Jazmin, OD [address] [place] [address] 09/11/2025 1:30 PM EDT Office Visit [facility] ADULT DENTAL [address] [place] [address] Bria Sanz documented as of this encounter [...] documented as of this encounter Care Teams Inside Sales Supervisor Relationship Specialty Start Date End Date Name, MD Weston [address] [place] [address] PCP - General Family Medicine 07/24/15 Chanel Mark, Connie [address] [place] [address] [place] [phone] Pharmacist Internal Medicine 04/04/22 Silver Contreras Back Shoe CutterPrecision Grinder External 04/20/23 documented as of this encounter
--- OUTSIDE RECORDS SUMMARY | 2025-05-14 12:50 | XMS_ITS | Encounter Summary ---
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) [...] 2:30 PM EST Medication Management [facility] MEDICINE [address] [place] [address] Chanel Mark, PharmD [address] [place] [address] 08/13/2025 2:00 PM EDT Office Visit [facility] OPTOMETRY [address] [place] [address] Tarka, Jazmin, OD [address] [place] [address] 09/11/2025 1:30 PM EDT Office Visit [facility] ADULT DENTAL [address] [place] [address] Bria Sanz documented as of this encounter [...] documented as of this encounter Care Teams Oracle Applications Developer Relationship Specialty Start Date End Date Name, MD Weston [address] [place] [address] PCP - General Family Medicine 07/24/15 Chanel Mark PharmD [address] [place] [address] Pharmacist Internal Medicine 04/04/22 Silver Contreras Can Filling Room SweeperCampaign Advisor 04/20/23 documented as of this encounter
--- OUTSIDE RECORDS SUMMARY | 2025-05-14 12:50 | XMS_ITS | Encounter Summary ---
Author Organization [employer] Address [address] [facility] 7t [place] [address] Care Team Providers Care Electrical Engineering Technician Name Role Phone Name, Weston FLOWER Primary Care Provider [phone] Chanel Mark PharmD Unavailable [phone] Reason for Visit * Reason Comments Med Refill Encounter Details Date Type Department Care Team ([facility] st Contact Info) Description 07/02/2024 Refill [facility] MEDICINE [address] [place] [address] Neelam Castillo DO [address] [place] [address] Diabetes mellitus type 2 with complications ([facility]/HCC) Social History Tobacco Use Types Packs/Day Years [...] with others, in a hotel, in a [facility], living outside on the street, on a [...] Description 06/11/2025 2:30 PM EST Medication Management [facility] MEDICINE [address] [place] [address] Chanel Mark, PharmD [address] [place] [address] 08/13/2025 2:00 PM EDT Office Visit [facility] OPTOMETRY [address] [place] [address] Tarka, Jazmin, OD [address] [place] [address] 09/11/2025 1:30 PM EDT Office Visit [facility] ADULT DENTAL [address] [place] [address] Bria Sanz documented as of this encounter Goals Goal Patient Goal Type Associated Problems Recent Progress Patient-Stated? Author Hemoglobin A1c < 7 Result Component 7.9( 10:53 AM EST) No Puia, Chanel, PharmD Record your blood [...] documented as of this encounter Care Teams Electrical Engineering Technician Relationship Specialty Start Date End Date Name, MD Weston [address] [place] [address] PCP - General Family Medicine 07/24/15 Chanel Mark PharmD [address] [place] [address] Pharmacist Internal Medicine 04/04/22 Silver Contreras Grizzly WorkerHhas 04/20/23 documented as of this encounter
--- OUTSIDE RECORDS SUMMARY | 2025-05-14 12:50 | XMS_ITS | Encounter Summary ---
Author Organization [employer] Address [address] [facility] 7t [place] [address] Care Team Providers Care Primer Press Operator Name Role Phone Name, Weston FLOWER Primary Care Provider [phone] Chanel Mark PharmD Unavailable [phone] Reason for Visit * Reason Comments Med Refill Encounter Details Date Type Department Care Team ([facility] st Contact Info) Description 01/03/2024 Refill [facility] MEDICINE [address] [place] [address] Chanel Mark, PharmD [address] [place] [address] Type 2 diabetes mellitus with hyperglycemia, without long-term current use of insulin ([facility]) Social History Tobacco Use Types Packs/Day [...] Description 06/11/2025 2:30 PM EST Medication Management [facility] MEDICINE [address] [place] [address] Chanel Mark, PharmD [address] [place] [address] 08/13/2025 2:00 PM EDT Office Visit [facility] OPTOMETRY [address] [place] [address] TarkaJazmin, OD [address] [place] [address] 09/11/2025 1:30 PM EDT Office Visit [facility] ADULT DENTAL [address] [place] [address] Bria Sanz documented as of this encounter Goals Goal Patient Goal Type Associated Problems Recent Progress Patient-Stated? Author Hemoglobin A1c < 7 Result Component 7.9( 10:53 AM EST) No Chanel Mark PharmD Record your blood [...] documented as of this encounter Care Teams Primer Press Operator Relationship Specialty Start Date End Date Name, MD Weston [address] [place] [address] PCP - General Family Medicine 07/24/15 Chanel Mark PharmD [address] [place] [address] Pharmacist Internal Medicine 04/04/22 Silver Contreras Public Transit Bus DriverMedication Assistant 04/20/23 documented as of this encounter
--- OUTSIDE RECORDS SUMMARY | 2025-05-14 12:51 | XMS_ITS | Clinical Summary ---
Author Organization [employer] Address [address] [facility] [address] [place] [address] Care Team Providers Care Supervisor [employer] Name Role Phone Name, Weston FLOWER Primary Care Provider [phone] Chanel Mark PharmD Unavailable [phone] Allergies Active Allergy Reactions Criticality Noted Date Comments Diphenhydramine 03/26/2018 Medications Blood Glucose Monitoring Suppl (FreeStyle Lite) deviceIndications :Type 2 diabetes mellitus without complication, without long-term current use of insulin ([facility]) Inject 1 each under the skin 2 times daily. Use to test blood sugar as directed 1 each 4 Active Ketotifen Fumarate 0.035 % solutionIndicatio ns:Seasonal allergies Administer 1 drop into affected eye(s) 2 times daily. 5 mL 1 4 Active Biotin w/ Vitamins C & E (HAIR SKIN & NAILS GUMMIES PO) Take 1 each by mouth Once per day. OTC Active atorvastatin (Lipitor) 40 MG tabletIndications :Type 2 diabetes mellitus without complication, without long-term current use of insulin (HCC) Take 1 tablet (40 mg) by mouth in the morning. 90 tablet 3 4 Active TRUEplus Lancets 33G miscIndications:T ype 2 diabetes mellitus without complication, without long-term current use of insulin (HCC) TEST BLOOD SUGAR TWICE DAILY DIRECTED 100 each 11 05/13/2025 12:29 PM EST 5 Active glucose blood (FREESTYLE LITE) test stripIndications: Type 2 diabetes mellitus without complication, without long-term current use of insulin (HCC) TEST BLOOD SUGAR TWICE DAILY DIRECTED 100 strip 11 05/13/2025 12:29 PM EST 5 Active gabapentin (Neurontin) 100 MG capsuleIndication s:Diabetes mellitus type 2 with complications (HCC) TAKE 1 CAPSULE BY MOUTH AT BEDTIME 30 capsule 11 05/13/2025 12:29 PM EST 5 Active Blood Pressure Monitoring (Omron 3 Series BP Monitor) deviceIndications :Essential hypertension Use to check BP daily as directed 1 each 5 Active estradiol (Estrace) 0.1 MG/GM vaginal cream 1g vaginally x 14d, then twice weekly thereafter 45 g 2 05/13/2025 12:29 PM EST 5 Active polyvinyl alcohol (Liquifilm Tears) 1.4 % ophthalmic solution INSTILL 1 DROP IN EACH EYE THREE TIMES DAILY IN THE MORNING, AT NOON, AND AT BEDTIME NEEDED DRY EYES 5 Active Multiple Vitamin (Multivitamin) tablet TAKE 1 TABLET BY MOUTH EVERY MORNING 90 tablet 1 5 Active loratadine (Claritin) 10 MG tablet Take 1 tablet (10 mg) by mouth in the morning. 90 tablet 5 Active metFORMIN (Glucophage) 1000 MG tablet Take 1 tablet (1,000 mg) by mouth with breakfast and with evening meal. 180 tablet 1 04/11/2025 3:23 PM EST 5 Active fluticasone (Flonase) 50 MCG/ACT nasal sprayIndications: Seasonal allergies INSTILL 2 SPRAYS IN EACH NOSTRIL ONCE DAILY 48 g 1 05/13/2025 12:29 PM EST 5 Active Calcium Carb-Cholecalcife rol 600-10 MG-MCG tablet Take 1 tablet by mouth 2 times daily. TAKE 1 TABLET BY MOUTH TWICE DAILY IN THE MORNING AND IN THE EVENING 180 tablet 1 04/11/2025 3:23 PM EST 5 Active Alcohol Swabs (Alcohol Prep) 70 % pads USE DIRECTED TO TEST BLOOD SUGAR AND INJECT INSULIN 100 each 11 5 Active Aspirin Low Dose 81 MG EC tabletIndications :Essential hypertension TAKE 1 TABLET BY MOUTH EVERY EVENING 90 tablet 3 5 Active glipiZIDE XL (Glucotrol XL) 5 MG 24 hr tabletIndications :Type 2 diabetes mellitus with hyperglycemia, without long-term current use of insulin (HCC) Take 1 tablet (5 mg) by mouth in the morning. Take in addition to 10 mg tab (total daily dose = 15 mg) 90 tablet 1 05/13/2025 12:29 PM EST 5 Active dapagliflozin (Farxiga) 10 MGIndications:Typ e 2 diabetes mellitus with hyperglycemia, without long-term current use of insulin (HCC) Take 1 tablet (10 mg) by mouth in the morning. 90 tablet 3 05/13/2025 12:29 PM EST 5 Active glipiZIDE XL (Glucotrol XL) 10 MG 24 hr tabletIndications :Type 2 diabetes mellitus with hyperglycemia, without long-term current use of insulin (HCC) Take 1 tablet (10 mg) by mouth with breakfast. Do not crush, chew, or split. 90 tablet 3 04/11/2025 3:23 PM EST 5 Active lisinopril 20 MG tabletIndications :Essential hypertension TAKE 1 TABLET BY MOUTH EVERY MORNING 90 tablet 3 5 Active sertraline (Zoloft) 50 MG tabletIndications :Diabetes mellitus type 2 with complications (HCC) TAKE 1 TABLET BY MOUTH EVERY EVENING 90 tablet 1 5 Active Polyethylene Glycol 3350 (PEG 3350) 17 GM/SCOOP powder Mix 17g (1 capful) in 8 ounces of water and take by mouth every day Active docusate sodium (Colace) 100 MG capsule Take 100 mg by mouth at bedtime. Active acetaminophen (Tylenol) 325 MG tabletIndications :Varicose veins of bilateral lower extremities with pain Take 2 tablets (650 mg) by mouth every 6 (six) hours if needed for mild pain or moderate pain. 40 tablet 2 5 Active melatonin 5 MG tabletIndications :Diabetes mellitus type 2 with complications (HCC) TAKE 1 TABLET BY MOUTH AT BEDTIME 90 tablet 1 Active Active Problems Problem Noted Date Diagnosed Date [...] Encounters Date Type Department Care Team Description 05/06/2025 Orders Only GENERIC EXTERNAL DATA DEPARTMENT Provider, Generic External Data 05/05/[address] [address] Westno Lagunas MD Medication Question 04/28/2025 11:00 AM EST Office Visit [address] [address] Weston Lagunas MD Type 2 diabetes mellitus with hyperglycemia, without long-term current use of insulin (HCC) (Primary Dx); Encounter for immunization 04/28/2025 Travel 04/10/2025 11:00 AM EST Office Visit [facility] [address] [place] [phone] Idris, Trish, OD Presbyopia (Primary Dx) 04/07/[address] [address] Weston Lagunas MD Diabetes mellitus type 2 with complications (HCC) 04/03/[address] [address] Weston Lagunas MD Durable Medical Equipment 03/25/2025 9:30 AM EST Office Visit [facility] [address] [place] [address] Hernandez-Soriano, Meghana, DDS 03/21/2025 1:30 PM EDT Office Visit [facility] [address] [place] [address] Noe Garcia, DMD 03/21/[address] [address] Weston Lagunas MD Chart Prep 03/19/2025 10:30 AM EDT Office Visit [facility] [address] [place] [address] Hernandez-Soriano Meghana, DDS Fracture of denture (Primary Dx) 03/19/2025 Orders Only GENERIC EXTERNAL DATA DEPARTMENT Provider, Generic External Data 03/12/2025 10:15 AM EDT Office Visit [facility] [address] [place] [address] Bria Sanz Dental caries (Primary Dx); Dental plaque; Dental calculus; Missing teeth, acquired 03/12/2025 9:30 AM EDT Office Visit [facility] [address] [place] [address] Radha Shah, [employer] Varicose veins of bilateral lower extremities with pain (Primary Dx); Diabetes mellitus type 2 with complications (HCC) 03/12/2025 Travel 03/11/2025 Telephone [facility] [address] [place] [address] Chanel Mark, Connie 03/11/2025 Travel 03/05/2025 Patient Outreach [facility] [address] [place] [address] Weston Lagunas MD Pre-visit Planning ([facility] unable to reach [facility] ) 03/05/2025 Refill [facility] [address] [place] [address] Weston Lagunas MD Essential hypertension; Diabetes mellitus type 2 with complications (HCC) 02/25/2025 Telephone [facility] [address] [place] [address] Weston Lagunas MD Referral from Last 3 Months Immunizations Immunization Administration [...] 20 03/11/2025 Pneumococcal Polysaccharide PPSV23 12/27/2007 Tdap 04/28/2025,01/04/2012 Family History Medical History Relation Name Comments [...] Sign Reading Time Taken Comments Blood Pressure 116/68 04/28/2025 10:50 AM EST Pulse 77 04/28/2025 10:50 AM EST Temperature 36.1 C (96.9 F) 04/28/2025 10:50 AM EST Respiratory Rate 14 04/28/2025 10:50 AM EST Oxygen Saturation 99% 04/28/2025 10:50 AM EST Inhaled Oxygen Concentration - - Weight 56.2 kg (124 lb) 04/28/2025 10:50 AM EST Height 154.9 cm (5' 1 ) 04/28/2025 10:50 AM EST Body Mass Index 23.43 04/28/2025 10:50 AM EST Plan of Treatment Upcoming Encounters Date Type Department Care Team (Late st Contact Info) Description 06/11/2025 2:30 PM EST Medication Management [facility] [address] [place] [address] Chanel Mark, PharmD [address] [place] [address] 08/13/2025 2:00 PM EDT Office Visit [facility] [address] [place] [address] Tarka, Jazmin, OD [address] [place] [address] 09/11/2025 1:30 PM EDT Office Visit [facility] [address] [place] [address] Bria Sanz Health Maintenance Due Date Last Done Comments CT Colonography 1965 FIT DNA/Cologuard 1965 FIT 1965 FOBT 1965 Sigmoidoscopy 1965 Zoster Vaccines (1 of 2) 2014 COVID-19 Vaccine (2 - season) 2025 01/14/2021 Influenza Vaccine (#1) 2025 9, 03/01/2018, 02/25/2016, Additional history exists Depression Monitoring 05/14/2025 11/12/2024, 024 Diabetes: Hemoglobin A1C 07/27/2025 025, 02/10/2025, 11/12/2024, Additional history exists Dental Oral Exam 09/11/2025 03/12/2025, , 02/14/2023 Dental Prophylaxis 09/11/2025 03/12/2025, 1 , 09/15/2023, Additional history exists Diabetes: Foot Exam 11/12/2025 11/12/2024, 11/12/2024, 11/12/2024, Additional history exists Disability Screening 11/12/2025 11/12/2024 Dental X-Ray: Bitewings 03/13/2026 03/12/20 25, 09/15/2023, 02/14/2023 Diabetes: Urine Protein Screening 03/19/2026 03/19/2025, 01/12/2023, 01/12/2023, Additional history exists Lipid Panel 03/19/2026 03/19/2025, /, 01/12/2023, Additional history exists Alcohol/Substance Use Screening 04/28/2026 04/28/2025 SDOH Screening 04/28/2026 04/28/2025 Tobacco Screening 04/28/2026 04/28/2025 Eye Exam 08/05/2026 08/05/2024, 07/20, 08/05/2024, Additional history exists Mammogram 11/12/2026 11/12/2024, 10/20, 11/21/2022, Additional history exists Dental X-Ray: Full Mouth 04/27/2027 024, 02/14/2023, 09/14/2022 Cervical Cancer Screening 10/17/2029 HPV/Cotest 10/17/2029 10/17/2024, 08/16/2021 Pap Smear 10/17/2029 10/17/2024, 07/21, 08/16/2021 DTaP/Tdap/Td Vaccines (3 - Td or Tdap) 04/28/2035 04/28/2025, 01/04/2012 Colonoscopy 05/06/2035 05/06/2025 Colorectal Cancer Screening 05/06/2035 RSV Patients and Patients Aged 60 years [...] 7.9( 10:53 AM EST) No Chanel Mark, PharmAddy Record your blood [...] Care Plan Weekly blood pressure task No Santiagoaguil Opal mendieta Weekly blood pressure task Care Plan Weekly blood pressure task No Santiagoaguil Opal mendieta Patient has chronic kidney disease Care Plan Patient has chronic kidney disease No Santiagoaguil Opal mendieta Patient has chronic kidney disease Care Plan Patient has chronic kidney disease No Santiagoaguil Opal mendieta Weekly blood pressure task Care Plan Weekly blood pressure task No Puia, Chanel, PharmD Weekly blood pressure task Care Plan Weekly blood pressure task No Puia, Chanel, PharmD Patient has chronic kidney disease Care Plan Patient has chronic kidney disease No Puia, Chanel, PharmD Patient has chronic kidney disease Care Plan Patient has chronic kidney disease No Puia, Chanel, PharmD Weekly blood pressure task Care Plan Weekly blood pressure task NowthenWeston Lagunas MD Weekly blood pressure task Care Plan Weekly blood pressure task NowthenWeston Lagunas MD Patient has chronic kidney disease Care Plan Patient has chronic kidney disease NowthenWeston Lagunas MD Patient has chronic kidney disease Care Plan Patient has chronic kidney disease NowthenWeston Lagunas MD Procedures Procedure Name Priority Date/Time Associated Diagnosis Comments HEMATOXYLIN AND EOSIN STAIN Routine 05/06/2025 9:48 AM EST GLUCOSE, WHOLE BLOOD Routine 05/06/2025 8:26 AM EST HM COLONOSCOPY Routine 05/06/2025 POCT GLYCATED HEMOGLOBIN, TOTAL Routine 04/28/2025 10:53 AM EST Type 2 diabetes mellitus with hyperglycemia, without long-term current use of insulin (HCC) POCT GLUCOSE (CPT-43925) Routine 04/28/2025 10:51 AM EST Type 2 diabetes mellitus with hyperglycemia, without long-term current use of insulin (HCC) DENTURE FOLLOWUP Routine 03/25/2025 9:30 AM EST [...] Routine 03/12/2025 10:15 AM EDT POCT GLUCOSE (CPT-09439) Routine 03/12/2025 9:31 AM EDT Diabetes mellitus type 2 with complications (HCC) BI MAMMOGRAM SCREENING TOMOSYNTHESIS BILATERAL Routine 11/12/2024 [...] Recently Relevant to Health Maintenance Results * Hematoxylin and Eosin Stain (05/06/2025 9:48 AM EST) 05/06/2025 9:48 AM EST 05/06/2025 11:45 AM EST [facility] - 05/08/2025 4:11 PM EST ----- ------- Name: Pepper Rothman Age/Sex: 59/F : 1965 Unit#: [id number] Attend Dr: Sandra Granda MD Re05/06/25 Status: [facility] Location: [facility] Disch: ----- ------- SPEC : [id number] RECD: 05/06/25 STATUS: BRIANNA TEE NUM: [id number] MARILIN: 05/06/2548 [facility] DR: Sandra Granda MD ENTERED: 05/06/25 SP TYPE: Surgical OTHR DR: Weston Lagunas MD ORDERED: HE Stain/15, Gross Micro L4/5, IHC, Special st. 2, H. pylori, AB/PAS Diagnosis A. Duodenum, biopsy: Duodenal mucosa with preserved villi and no specific change. B. Stomach, random, biopsy: Gastric antral-type mucosa with chronic gastritis with focal mild activity, focal gland atrophy and intestinal metaplasia (complete); negative for dysplasia (see comment). C. Esophagus, lower, biopsy: Squamous mucosa with no specific change; no columnar mucosa present. D. Esophagus, middle, biopsy: Squamous mucosa with no specific change; no columnar mucosa present. E. Colon, ascending, nodule: Colonic mucosa with reactive lymphoid follicle and no specific change; no adenomatous dysplasia seen. Comment: (B): Gastrin immunostain pending; addendum to follow. Clinical History Pre-Op Dx: Anemia, GERD, dysphagia Post-Op Dx: Gastric wall thickening, external hemorrhoids, colon nodule, small bowel AVM Microscopic Description Microscopic sections reviewed. Immunostain for H. pylori on B is negative. AB/PAS on B is positive for intestinal metaplasia. Controls stain appropriately. Material Received A. Duodenum bxs B. Random gastric bxs C. Lower esophagus bxs D. Middle esophagus bxs E. Ascending colon nodule Gross Description A. Received in formalin, labeled duodenum biopsy , are 3 irregular chavez mucosal tissue fragments, each measuring approximately 0.2 cm in greatest dimension, which are submitted in toto in 1 cassette. B. Received in formalin, labeled random gastric biopsy are 3 irregular chavez mucosal tissue CONTINUED ON NEXT PAGE ----- ------- Name: Pepper Rothman Age/Sex: 59/F : 1965 [facility]#: [id number] Unit#: [id number] Attend Dr: Sandra Granda MD Re05/06/25 Status: [facility] Location: [facility] Disch: ----- ------- SPEC : [id number] RECD: 05/06/25 STATUS: BRIANNA TEE NUM: [id number] MARILIN: 05/06/[address] [facility] [address]: Sandra Granda MD ENTERED: 05/06/25 SP TYPE: Surgical OTHR DR: Weston Lagunas MD ORDERED: HE Stain/15, Gross Micro L4/5, IHC, Special st. 2, H. pylori, AB/PAS Gross Description (Continued) fragments, each measuring approximately 0.2 cm in greatest dimension, which are submitted in toto in 1 cassette. C. Received in formalin, labeled lower esophagus biopsy , are 4 irregular pink white mucosal tissue fragments, each measuring approximately 0.2 cm in greatest dimension, which are submitted in toto in 1 cassette. D. Received in formalin, labeled middle esophagus , are 4 irregular chavez white mucosal tissue fragments, ranging from less than 0.1 cm to 0.3 cm in greatest dimension, which are submitted in toto in 1 cassette. E. Received in formalin, labeled ascending colon nodule , is a 0.2 cm irregular chavez mucosal tissue fragment which is submitted in toto in 1 cassette. (ALEJANDRINA) Special studies ordered and performed at [facility]: Immunostain for H. pylori on B1; AB/PAS stains on B1. Special studies ordered and performed at [facility]: Immunostain for gastrin on B1. IHC S/NG Disclaimer NOTE: Unless otherwise stated, all tissue is formalin-fixed and paraffin-embedded. Some or all of the immunohistochemical tests reported herein may have been developed and their performance characteristics determined by [facility]. They have not been cleared or approved by the U.S. Food and Drug Administration (FDA). However, the FDA has determined that such clearance or approval is not necessary. This laboratory is certified under the Clinical Laboratory Improvement Amendments of 1988 (CLIA) as qualified to perform high complexity clinical laboratory testing. Copies To: Name,Weston FLOWER [facility] [address] [place] [address] Sandra Granda MD [facility] [address] [place] [phone] [email or web address] ----- ------- Signed (signature on file) Daisy Holcomb MD 05/08/25 1611 ----- ------- END OF REPORT Generic External Data Provider LAB BLOOD ORDERAB LES Final Result [facility] [address] [place] [address] [phone] * (ABNORMAL) Glucose, Whole Blood (05/06/2025 8:26 AM EST) Glucose, Whole Blood 132(H) 60 - 115 mg/dL [facility] Comment:METER #: [id number] 05/06/2025 8:26 AM EST 05/06/2025 8:33 AM EST Generic External Data Provider LAB BLOOD ORDERAB LES Final Result [facility] [address] [place] [phone] * Colonoscopy (05/06/2025) Colonoscopy Normal Normal Comment:Done at [facility], results in chart Historical Provider HEALTH MAINTENANCE Final Result * (ABNORMAL) POCT Hgb A1c (04/28/2025 10:53 AM EST) Hemoglobin A1C 7.9(A) 4.0 - 5.7 % QC Media Lot # [id number] Lot# Expiration Date [id number] Blood 04/28/2025 10:5 3 AM EST Weston Name POINT OF CARE TEST ENTER/EDIT OR DERABLES Final Result * (ABNORMAL) POCT Glucose (04/28/2025 10:51 AM EST) Only the most recent of2 resultswithin the time period is included. Pathologist [facility] Glucose Blood, POC 350(A) 60 - 200 mg/dL QC Media Lot # [id number] Lot# Expiration Date 70,726 Blood Capillary blood specimen / Unknown 04/28/2025 10:51 AM EST Weston Name POINT OF CARE TEST ENTER/EDIT OR DERABLES Final Result * TSH with Reflex to Free T4 (03/19/2025 10:54 AM EDT) TSH reflex Free T4 2.00 0.32 - 4.0 uIU/mL [facility] 03/19/2025 10:5 4 AM EDT 03/19/2025 1:13 PM EDT Generic External Data Provider LAB BLOOD ORDERAB LES Final Result [facility] [address] [place] [phone] * Albumin, Random Urine W/Creatinine (03/19/2025 10:54 AM EDT) Creatinine, Urine 70.08 mg/dL [facility] Microalbumin Urine 9.0 mg/L [facility] Microalbum Creatinine Ratio Ur 12.8 <30 ug/mg cr [facility] Comment:Albumin/Creatinine R atio Reference Ranges: Normal: < 30 ug/mg creatinine Microalbuminuria: 30 - 300 ug/mg creatinineClinical Albuminuria: > 300 ug/mg creatinine Urine (Urine, Random) 03/19/2025 10:54 AM EDT 03/19/2025 1:00 PM EDT us Weston Name LAB URINE ORDERABLES Final Resul t Performing Organization Address City/State/[facility] Co de Phone Number [facility] [address] [place] [phone] * Lipid Panel, Standard (03/19/2025 10:54 AM EDT) Triglycerides 75 <150 mg/dL [facility] Comment:Desirable Triglyceri de: less than 150 mg/dLBorderline High Triglyceride 150-199 mg/dLHigh Triglyceride: 200-499 mg/dLVery High Triglyceride: greater than or equal to 5OO mg/dL Cholesterol 116 <200 mg/dL [facility] Comment:Desirable Cholestero l: less than 200 mg/dLBorderline High Cholesterol: 200-239 mg/dLHigh Cholesterol: greater than 239 mg/dL LDL Cholesterol Calculated 58 <100 mg/dL [facility] Comment:Desirable LDL: less than 100 mg/dLNear Optimal/Above Optimal LDL: 110- 129 mg/dLBorderline High LDL: 130-159 mg/dLHigh LDL: 160-189 mg/dLVery High LDL: greater than or equal to 190 mg/dL HDL Cholesterol 43 >40 mg/dL [facility] Comment:Desirable HDL: great er than 40 mg/dL Note: This HDL assay may give artificially low results in patients with liver disease. Blood Venous blood specimen / Unknown 03/19/2025 10:54 AM EDT 03/19/2025 1:13 PM EDT us Weston Lagunas MD LAB BLOOD ORDERABLES Final Resul t [facility] [address] [place] [address] [phone] * (ABNORMAL) Comprehensive Metabolic Panel (03/19/2025 10:54 AM EDT) Sodium 142 135 - 145 mmol/L [facility] Potassium 4.2 3.3 - 5.1 mmol/L [facility] Chloride 107 96 - 108 mmol/L [facility] Carbon Dioxide 29 22 - 29 mmol/L [facility] Anion Gap 10(L) 12 - 20 [facility] Urea Nitrogen (BUN) 15 9 - 16 mg/dL [facility] Creatinine, Serum 0.64 0.5 - 1.4 mg/dL [facility] Estimated Glomerular Filt Rate >60 [facility] Comment:Chronic Kidney Disea se: Estimated GFR < 60 mL/min/1.64l4Oolldb Kidney Disease: Estimated GFR < 15 mL/min/1.73m2 Glucose 131(H) 60 - 115 mg/dL [facility] Calcium 10.2 8.4 - 10.2 mg/dL [facility] Bilirubin, Total 0.3 0.0 - 1.0 mg/dL [facility] Aspartate Amino Transferase 25 5 - 31 U/L [facility] Alanine Aminotransferase 12 0 - 31 U/L [facility] Total Protein 7.1 6.5 - 8.0 g/dL [facility] Albumin Level 4.2 3.5 - 5.0 g/dL [facility] Alkaline Phosphatase 86 39 - 117 U/L [facility] Blood Venous blood specimen / Unknown 03/19/2025 10:54 AM EDT 03/19/2025 1:13 PM EDT us Weston Lagunas MD LAB BLOOD ORDERABLES Final Resul t [facility] [address] [facility] [place] [phone] * BI Mammogram Screening Tomosynthesis Bilateral (11/12/2024 11:02 AM EDT) Anatomical Region Laterality Modality Breast Bilateral Mammography 11/12/2024 11:0 2 AM EDT Narrative 11/15/2024 5:37 PM EDT [address] [place] [address] Mammography Report Signed Patient: Pepper Rothman MR#: [id number] 37 : 1965 Acct:[id number] Age/Sex: 58 / F ADM Date: 11/12/24 Loc: HO.MAMMO Attending Dr: Weston Lagunas MD Ordering Physician: Weston Lagunas MD Results: 2Benign Fi ndings Date of Service: 11/12/24 Follow Up: 1 Year From [facility] Mammogram Procedure(s): MM tomosynthesis screening BI Accession Number(s): [id number] cc: Weston Lagunas MD EXAMINATION: MM SCREENING [...] 11/15/24 1734 DD/ 1102 TD/TT: 11/12/24 1122 Windows Security Engineer: Procedure Note Donotuseinterpreter, Image - 11[facility]15/20[facility] [address] [place] [address] Mammography Report Signed Patient: Susannah Rothman#: [id number] 37 : 1965Acct:[id number] Age/Sex: 58 / FADM Date: 11/12/24 Loc: HO.MAMMO Attending Dr: Weston Lagunas MD Ordering Physician: Weston Lagunas MDResults: 2Benign Fi ndings Date of Service: 11/12/24Follow Up: 1 Year From Orig ina Mammogram Procedure(s): MM tomosynthesis screening BI Accession Number(s): [id number] cc: Weston Lagunas MD EXAMINATION: MM SCREENING [...] Michelle Booker DO 11/15/2024 05:34 PM EDT RP Dictated By: Michelle Booker DO Signed By: <Electronically signed by Michelle Booker DO in [place]> 11/15/24 1734 DD/ 1102 TD/TT: 11/12/24 1122 Windows Security Engineer: Weston BEAR BI PROCEDURES Final Result * HIV-1/2 Antigen and Antibodies, Fourth Generation, with Reflexes (10/17/2024 2:07 PM EDT) HIV AB/AG Nonreactive Nonreactive [facility] Comment:HIV-1 p24 Ag and/or HIV-1/HIV-2 Ab not detected.A test result that is nonreactive does not exclude thepossibility of exposure to or infection with HIV-1 and/orHIV-2. Nonreactive results in this assay for individualswith prior exposure to HIV-1 and/or HIV-2 may be due toantigen and antibody levels that are below the limit ofdetection of this assay.The [employer] HIV Ag/Ab Combo assay result andsupplemental assay results should be interpreted inconjunction with the patient's clinical presentation,history and other laboratory results. If the results areinconsistent with clinical evidence, additional testing issuggested to confirm the result. Blood Venous blood specimen / Unknown 10/17/2024 2:07 PM EDT 10/17/2024 4:01 PM EDT us Juan RIGGINS LAB BLOOD ORDERABLES Chio l Result [facility] [address] [place] [phone] * HPV DNA, Low/High Risk (10/17/2024 1:57 PM EDT) HPV High Risk Negative Negative [facility] HPV Genotype 16 Negative Negative [facility] HPV Genotype 18 Negative Negative [facility] Comment:HPV testing performe d at [facility] (CLIA#[id number]), [address] [place] [address].Testing for HPV was performed using the Leslie [...] CNM LAB BLOOD ORDERABLES Chio tanner Result [facility] [address] [place] [phone] * Pap Smear (10/17/2024 1:57 PM EDT) Swab Cervix uteri structure / Unknown 10/17/2024 1:57 PM EDT 10/18/2024 10:35 AM EDT Narrative [facility] - 10/23/2024 10:35 AM EDT ----- ------- Name: Pepper Rothman Age/Sex: 58/F : 1965 Unit#: [id number] Attend Dr: JUAN COSTA CNM Re10/17/24 Status: DEP REF Location: [facility] Disch: ----- ------- SPEC : [id number] RECD: 10/18/24-1034 STATUS: BRIANNA TEE NUM: [id number] MARILIN: 10/17/24-[address]: JUAN COSTA ENTERED: 10/18/24 SP TYPE: Pap Smr OTHR DR: ORDERED: Pap Smear Interpretation Satisfactory for [...] and HPV testing will be performed at [facility] (CLIA #[id number]), [address] [place] [address]. Testing for HPV was performed using the [...] All professional services are performed by [facility] ([address] [place] [id number]; ; CLIA #[id number]). The PAP Test is a screening procedure with the inherent possibility of both false negative and false positive results. Results should be interpreted in the context of historic and current clinical findings. Reliability of the PAP Test is enhanced by performing the test on a regular repetitive basis. CONTINUED ON NEXT PAGE ----- ------- Name: Pepper Rothman Age/Sex: 58/F : 1965 Unit#: [id number] Attend Dr: JUAN COSTA CNM Re10/17/24 Status: DEP REF Location: [facility] Disch: ----- ------- SPEC : [id number] RECD: 10/18/24-1034 STATUS: BRIANNA TEE NUM: [id number] MARILIN: 10/17/24-[address]: JUAN COSTA CNM ENTERED: 10/18/24-2678 SP TYPE: Gabriela MERCHANT DR: ORDERED: Pap Smear ----- ------- Signed (signature on file) LAITH Haddad ([facility]) 10/23/24 1035 ----- ------- END OF REPORT Juan RIGGINS LAB CYTOLOGY ORDERABLES F inal Result Performing Organization Address City/[facility]/ZIP Co de Phone Number [facility] [address] [place] [address] [phone] * Hepatitis C Antibody with Reflex to HCV, RNA, Quantitative, Real-Time PCR (12/19/2023 9:45 AM EDT) Pathologist [facility] Hepatitis C Antibody Nonreactive Nonreactive [facility] Comment:Antibodies to HCV no t detected; does not exclude early acuteHCV infection. Blood Venous blood specimen / Unknown 12/19/2023 9:45 AM EDT 12/19/2023 11:27 AM EDT Juan Costa [facility] LAB BLOOD ORDERABLES Chio l Result Performing Organization Address [facility]/ZIP Co de Phone Number [facility] [address] [place] [address] [phone] from Last 3 Months or Most Recently Relevant to Health Maintenance Additional Health Concerns Active Problems Noted Date [...] 05/05/2025 Patient has chronic kidney disease 05/05/2025 Weekly blood pressure task 05/08/2025 Weekly blood pressure task 05/08/2025 Patient has chronic kidney disease 05/08/2025 Patient has chronic kidney disease 05/08/2025 Weekly blood pressure task 05/09/2025 Weekly blood pressure task 05/09/2025 Patient has chronic kidney disease 05/09/2025 Patient has chronic kidney disease 05/09/2025 Insurance [facility] C3 DENTAL-[facility] MEDICAID [facility] ADULT Care Teams Supervisor [employer] Relationship Specialty Start Date End Date Name, MD Weston [address] [place] [address] PCP - General Family Medicine 07/24/15 Chanel Mark, PrasanthD [address] [place] [address] Pharmacist Internal Medicine 04/04/22 Silver Contreras Mining TechnicianTelecommunication Lines Repairer 04/20/23
--- OUTSIDE RECORDS SUMMARY | 2025-05-14 12:51 | XMS_ITS | Encounter Summary ---
Author Organization [employer] Address [address] [place] [address] [address] [place] [address] Care Team Providers Care Medical Photographer Name Role Phone Name, Weston FLOWER Primary Care Provider [phone] PuChanel guadarrama PharmD Unavailable [phone] Reason for Visit * Reason Comments Med Refill Encounter Details Date Type Department Care Team (Late st Contact Info) Description 12/02/2022 Refill [facility] MEDICINE [address] [place] [phone] Name, MD Weston [address] [place] [phone] Diabetes mellitus type 2 with complications ([facility]) Social History Tobacco Use Types [...] Description 06/11/2025 2:30 PM EST Medication Management [facility] [address] [place] [phone] Puia, Chanel, PharmD [address] [place], [place] [phone] 08/13/2025 2:00 PM EDT Office Visit [facility] OPTOMETRY [address] [place] [address] Mirna Jazmin, OD [address] [place] [address] 09/11/2025 1:30 PM EDT Office Visit [facility] ADULT DENTAL [address] [place] [address] Bria Sanz documented as of this encounter Goals Goal Patient Goal Type Associated Problems Recent Progress Patient-Stated? Author Hemoglobin A1c < 7 Result Component 7.9( 10:53 AM EST) No Chanel Mark PharmAddy Record your blood sugar as directed [...] documented as of this encounter Care Teams Medical Photographer Relationship Specialty Start Date End Date Name, MD Weston [address] [place] [address] PCP - General Family Medicine 07/24/15 Chanel Mark, PharmD [address] [place] [address] Pharmacist Internal Medicine 04/04/22 Silver Contreras Miniature Set DesignerBabbitter 04/20/23 documented as of this encounter
--- OUTSIDE RECORDS SUMMARY | 2025-05-14 12:51 | XMS_ITS | Encounter Summary ---
Author Organization [employer] Address [address] [facility] 7t [place] [address] Care Team Providers Care Service Administrator Name Role Phone Name, Weston FLOWER Primary Care Provider [phone] Chanel Mark PharmD Unavailable [phone] Reason for Visit * Reason Comments Med Refill Encounter Details Date Type Department Care Team ([facility] st Contact Info) Description 03/30/2023 Refill [facility] MEDICINE [address] [place] [address] Name, MD Weston [address] [place] [address] Heartburn Social History Tobacco Use Types Packs/Day [...] 2:30 PM EST Medication Management [facility] MEDICINE [address] [place] [address] Chanel Mrak, PharmD [address] [place] [address] 08/13/2025 2:00 PM EDT Office Visit [facility] OPTOMETRY [address] [place] [address] Tarka, Jazmin, OD [address] [place] [address] 09/11/2025 1:30 PM EDT Office Visit [facility] ADULT DENTAL [address] [place] [address] Bria Sanz documented as of this encounter Goals Goal Patient Goal Type Associated Problems Recent Progress Patient-Stated? Author Hemoglobin A1c < 7 Result Component 7.9( 10:53 AM EST) No Chanel Mark, PharmD Record your blood sugar as directed Result Component No PuAnam guadarramayssa, PharmD Note: Continue to check FBG, change PM testing time to ~2 hrs post dinner to aid in med titration. documented as of this encounter Visit Diagnoses Diagnosis Heartburn documented in this encounter Additional Health Concerns Assessment Noted Time PHQ-9 Depression Total Score: 17 023 9:08 AM EDT documented as of this encounter Care Teams Service Administrator Relationship Specialty Start Date End Date Name, MD Weston [address] [place], [place] [phone] PCP - General Family Medicine 07/24/15 Chanel Mark PharmD [address] [place], [place] [phone] Pharmacist Internal Medicine 04/04/22 Silver Contreras Boiler/Chiller TechnicianShipping Processor 04/20/23 documented as of this encounter
--- OUTSIDE RECORDS SUMMARY | 2025-05-14 12:51 | XMS_ITS | Encounter Summary ---
Author Organization [employer] Address [address] [facility] 7t [place] [address] Care Team Providers Care Technical Support Internship Name Role Phone Name, Weston FLOWER Primary Care Provider [phone] Chanel Mark PharmD Unavailable [phone] Reason for Visit * Reason Comments Med Refill Encounter Details Date Type Department Care Team ([facility] st Contact Info) Description 03/26/2023 Refill [facility] MEDICINE [address] [place] [address] Chanel Mark, PharmD [address] [place] [address] Diabetes mellitus type 2 with complications ([facility]) Social History Tobacco Use Types [...] 2:30 PM EST Medication Management [facility] MEDICINE [address] [place] [address] Chanel Mark, PharmD [address] [place] [address] 08/13/2025 2:00 PM EDT Office Visit [facility] OPTOMETRY [address] [place] [address] Tarka, Jazmin, OD [address] [place] [address] 09/11/2025 1:30 PM EDT Office Visit [facility] ADULT DENTAL [address] [place] [address] Bria Sanz documented as of this encounter [...] documented as of this encounter Care Teams Technical Support Internship Relationship Specialty Start Date End Date Name, MD Weston [address] [place] [address] PCP - General Family Medicine 07/24/15 Chanel Mark PharmD [address] [place] [address] Pharmacist Internal Medicine 04/04/22 Silver Contreras Social Science AnalystAir Defense Control Officer 04/20/23 documented as of this encounter
--- OUTSIDE RECORDS SUMMARY | 2025-05-14 12:51 | XMS_ITS | Encounter Summary ---
Author Organization [employer] Address [address] [facility] 7t [place] [address] Care Team Providers Care Waiter/Waitress Club Name Role Phone Name, Weston FLOWER Primary Care Provider [phone] Chanel Mark PharmD Unavailable [phone] Encounter Details Date Type Department Care Team ([facility] st Contact Info) Description 03/03/2023 Abstract [facility] ADULT DENTAL [address] [place] [address] Meghana Vines DDS [address] [place], [place] [phone] Social History Tobacco Use Types Packs/Day Years [...] Description 06/11/2025 2:30 PM EST Medication Management [facility] MEDICINE [address] [place] [address] Chanel Mark, PharmD [address] [place] [address] 08/13/2025 2:00 PM EDT Office Visit [facility] OPTOMETRY [address] [place] [address] Tarka, Jazmin, OD [address] [place] [address] 09/11/2025 1:30 PM EDT Office Visit [facility] ADULT DENTAL [address] [place] [address] Bria Sanz documented as of this encounter [...] documented as of this encounter Care Teams Waiter/Waitress Club Relationship Specialty Start Date End Date Name, MD Weston [address] [place] [address] PCP - General Family Medicine 07/24/15 Chanel Mark, Connie [address] [place] [address] Pharmacist Internal Medicine 04/04/22 Silver Contreras Track Car OperatorProduct Inspection Coordinator 04/20/23 documented as of this encounter
--- OUTSIDE RECORDS SUMMARY | 2025-05-14 12:51 | XMS_ITS | Encounter Summary ---
Author Organization [employer] Address [address] [facility] 7t [place] [address] Care Team Providers Care Outside Production Inspector Name Role Phone Name, Weston FLOWER Primary Care Provider [phone] Chanel Mark PharmD Unavailable [phone] Encounter Details Date Type Department Care Team (Late st Contact Info) Description 03/14/2023 Abstract [facility] ADULT DENTAL [address] [place] [address] Karl, Deborah [address] [place] [address] Social History Tobacco Use Types Packs/Day Years [...] t he electric, gas, oil or water [employer] threatened to shut off services in your [...] Description 06/11/2025 2:30 PM EST Medication Management [facility] MEDICINE [address] [place] [address] Chanel Mark, PharmD [address] [place] [address] 08/13/2025 2:00 PM EDT Office Visit [facility] OPTOMETRY [address] [place] [address] Tarka, Jazmin, OD [address] [place] [address] 09/11/2025 1:30 PM EDT Office Visit [facility] ADULT DENTAL [address] [place] [address] Bria Sanz documented as of this encounter [...] documented as of this encounter Care Teams Outside Production Inspector Relationship Specialty Start Date End Date Name, MD Weston [address] [place] [address] PCP - General Family Medicine 07/24/15 Chanel Mark, Connie [address] [place] [address] [place] [phone] Pharmacist Internal Medicine 04/04/22 Silver Contreras Director Strategic Account ManagementCharge Hand 04/20/23 documented as of this encounter
--- NOTE | 2025-05-14 12:57 | A.OFFVIS_ITS ---
Vital Signs 05/14/25 13:02 Height 5 ft 1 in Weight 123 lb BMI 23.2 BP 112/58 L Blood Pressure Location Lt brachial Position Sitting Pulse 71 Intake Visit Reasons: s/p double Intake Note: Patient follow up for Acid reflux, EGD/Colonoscopy results. Patient cc: acid reflux, constipation/2 days with out any BM and abdominal bloating Stopper Setter Required: Yes Stopper Setter Name: [facility] interpeter Accompanied by: Self / Same As Patient Allergies diphenhydramine (From BENADRYL) Allergy (Unknown, Verified 05/14/25 12:56) PALPATATIONS HPI HPI s/p double: Details: Patient is a 59-year-old Somali speaking female with PMH of hyperlipidemia, hypertension, diabetes. Follow-up visit to discuss the results of an upper endoscopy and screening colonoscopy performed on May 06. The upper endoscopy was indicated for symptoms of reflux, regurgitation, and epigastric pain. The colonoscopy was noted to be complete with an adequate preparation. Findings included one benign polyp (lipoma) in the ascending colon, which was removed, with no evidence of cancer. The procedure also revealed internal and external hemorrhoids and an area of active bleeding from a small bowel arteriovenous malformation (AVM). The upper endoscopy (EGD) showed a normal esophagus, a small hiatal hernia, inflammation of the stomach (chronic gastritis), and precancerous changes (intestinal metaplasia). The patient reports ongoing intermittent reflux symptoms, particularly after certain foods, and is not currently taking any medication for it, such as omeprazole or famotidine. The patient has a history of anemia, and lab orders for iron studies placed at the last visit have not yet been completed. She also has a history of constipation and has been non-adherent with the daily use of MiraLax and docusate, taking them only intermittently when symptomatic. Her past surgical history is significant for a cholecystectomy. HPI Comments Details: Patient is a 59-year-old Somali speaking female with PMH of hyperlipidemia, hypertension, diabetes. PFSH Medical History (Updated 05/14/25 @ 13:45 by Lizz Alvarez CNP) Colon polyp Gastritis determined by endoscopy Anemia Acid reflux Colon cancer screening Constipation HLD (hyperlipidemia) HTN (hypertension) Diabetes Surgical History (Updated 05/13/25 @ 16:08 by Maura Weldon) History of esophagogastroduodenoscopy (EGD) Hx of colonoscopy Hx of cholecystectomy Family History Brother Cancer Social History Are you a primary primary care pediatrician to a significant other at home: No Do you presently have visiting nurse or other home services: No Alcohol intake: never Patient Tobacco Use Status: Never used Tobacco Gender identity: Female Review of Systems Const Reports as per HPI ENT Reports as per HPI Card Reports as per HPI Resp Reports as per HPI GI Reports as per HPI Reports as per HPI Physical Exam Const General: healthy appearing, no acute distress and well developed Nutritional Appearance: average body habitus Orientation/consciousness: patient oriented x3 HEENT Head: Yes normal to inspection, Yes normocephalic and Yes atraumatic Face and sinus: Yes normal facial exam Eyes General: appearance normal, both eyes and all related structures Neck Neck: Yes normal visual inspection Resp Effort & Inspection: normal respiratory effort, able to speak in complete sentences, no tracheal deviation and symmetric chest movement Cardio Jugular venous distension: no JVD Neuro General: patient oriented x3 Gait exam (Neuro): Normal gait present Psych Appearance: grossly normal Mental Status: mental status grossly normal Speech and movement: Normal speech and movement present Affect: normal affect Attitude: cooperative Thought process: Normal thought process present Thought content: Normal thought content present Insight: Good insight present (Psych) Judgement: Good judgement present (Psych) Results Reviewed Results Reviewed: Operative Note Date of Service: 05/06/25 Narrative: Procedure: Upper endoscopy and colonoscopy Indication: Dysphagia, anemia Endoscopist: Sandra Granda MD Anesthesia Provider: Dr Deluca Anesthesia type: MAC Instrument: [id number] and [id number]-[id number] EGD Procedure:?? The procedure, indications, preparation and potential complications were reviewed with the patient with the help of computer information systems professor, who indicated understanding and gave written informed consent to proceed. The endoscope was introduced through the mouth, and advanced to the 2nd part of the duodenum. The mucosa was carefully examined on slow withdrawal of the endoscope. The patient tolerated the procedure well. There were no immediate complications.? EGD Findings:? * Esophagus:? Normal esophageal mucosa was noted. The Z-line was at 33 cm displaced by a hiatal hernia. Cold forceps biopsies were taken from middle and lower esophagus to rule out Eosinophilic esophagitis. * Stomach:? Normal gastric mucosa was noted but rugal folds were prominent and stomach could not be insufflated adequately despite multiple attempts. Random cold forceps biopsies were taken from the stomach. * Duodenum:? Normal duodenal mucosa. Cold forceps biopsies were taken from the duodenal bulb and 2nd portion of the duodenum to rule out celiac sprue. Additional intervention: Soft tip Savary wire was introduced through the biopsy channel of the gastroscope and advanced to the antrum. ?The gastroscope was then backed out. ?Savary Karen bougie was advanced over the guidewire and the esophagus was dilated to 17 mm without any resistance felt. ?On relook, no heme or tear was noted. ? Colonoscopy Procedure:? The patient was then turned for the colonoscopy. A digital rectal exam was performed which was normal.? A distal attachment cap was affixed to the tip of the scope and the colonoscope was then inserted through the anus and advanced through the colon and advanced to the cecum at 75 cm and terminal ileum.? Appendiceal orifice and ileocecal valve were identified. Mucosa was carefully examined under high definition white light as the instrument was slowly withdrawn in a retrograde panoramic fashion. Retroflexion was performed in rectum. The procedure was not difficult. The quality of the prep was BBPS: 3+2+3 = adequate Withdrawal time 31 minutes Limitations: No limitations Findings: Mucosa: Normal colon mucosa. There was fresh blood noted in terminal ileum. Initially the terminal ileum could only be intubated to 15 cm. Endomark was placed to tattoo the site. However on 2nd attempt with LLQ pressure, deep T.I intubation of at least 35 cm was achieved. There was a bleeding AVM noted at 25 cm of intubation. This was completely ablated with APC using a straight fire catheter. A second endomark was placed at the distal most extent of T.I reached. Protruding lesions: * A subepithelial lesion measuring 2 cm noted in hepatic flexure/ascending colon. This was unroofed with a cold snare revealing fatty tissue underneath. Cold forceps biopsies were taken for histology. * Large internal hemorrhoids without stigmata of recent bleeding.Impression: 1. Normal esophagus (biopsy, dilation) 2. Hypertrophic gastropathy (biopsy) 3. Normal duodenum (biopsy) 4. Actively bleeding small bowel AVM (APC, endomark) 5. Ascending colon nodule ? lipoma (biopsy) 6. Internal and external hemorrhoids Recommendations:?? * Follow-up path results * Avoid NSAIDs * Recommend UGIS as well as CT scan for gastric hypertrophy to r.o malignancy. CT enterography preferred, as will also be able to evaluate small bowel * Asymptomatic colorectal cancer screening recommended in 10 years PATHOLOGY: Collected: 05/06/25 Location: .[facility] Received: 05/06/25 Diagnosis A. Duodenum, biopsy: Duodenal mucosa with preserved villi and no specific change. B. Stomach, random, biopsy: Gastric antral-type mucosa with chronic gastritis with focal mild activity, focal gland atrophy and intestinal metaplasia (complete); negative for dysplasia (see comment). C. Esophagus, lower, biopsy: Squamous mucosa with no specific change; no columnar mucosa present. D. Esophagus, middle, biopsy: Squamous mucosa with no specific change; no columnar mucosa present. E. Colon, ascending, nodule: Colonic mucosa with reactive lymphoid follicle and no specific change; no adenomatous dysplasia seen. Comment: (B): Gastrin immunostain pending; addendum to follow. Clinical History Pre-Op Dx: Anemia, GERD, dysphagia Post-Op Dx: Gastric wall thickening, external hemorrhoids, colon nodule, small bowel AVM Assessment & Plan Assessment & Plan (1) Gastritis determined by endoscopy: Comment: 05/06/25 EGD - Normal esophagus (dilation), hiatal hernia, chronic gastritis, focal gland atrophy and intestinal metaplasia (complete); negative for dysplasia, Normal duodenum Code(s): K29.70 - Gastritis, unspecified, without bleeding Category: Medical Plan: The patient's symptoms of regurgitation and epigastric pain are consistent with reflux, supported by EGD findings of a hiatal hernia, chronic gastritis, and intestinal metaplasia. - A prescription for omeprazole, one tablet twice daily, will be sent to the pharmacy to manage reflux symptoms. - An upper GI series and a CT scan are being ordered to further evaluate the gastric changes and to help rule out malignancy. - The patient was counseled to avoid trigger foods such as spicy, fried, and fatty items. (2) Anemia: Code(s): D64.9 - Anemia, unspecified Category: Medical Qualifiers: Anemia type: unspecified type Qualified Code(s): D64.9 - Anemia, uns pecified Plan: Given her history of anemia and the colonoscopy finding of a bleeding AVM, pending lab orders for iron studies and a repeat CBC will be completed. - If the results show iron deficiency, iron supplementation will be initiated. (3) Colon polyp: Comment: 05/06/25 colonoscopy complete with adequate prep-Actively bleeding small bowel AVM (APC, endomark), 2 cm lymphoid follicle (Ascending), Internal and external hemorrhoids. Code(s): K63.5 - Polyp of colon Category: Medical Qualifiers: Colon polyp type: unspecified Colon location: ascending Qualified Code(s): K63.5 - Polyp of colon Plan: The benign lipoma found during colonoscopy was removed, and no further action is required for this finding. - For the diagnosed internal and external hemorrhoids, the patient was advised to monitor for symptoms and given lifestyle recommendations to prevent worsening, including avoiding constipation, straining, prolonged sitting, and heavy lifting. (4) Constipation: Code(s): K59.00 - Constipation, unspecified Category: Medical Qualifiers: Constipation type: unspecified constipation type Qualified Code(s): K59.00 - Constipation, unspecified Plan: The patient's constipation is managed with MiraLax and docusate, but she has been non-adherent with daily use. - Reinforced the recommendation to take MiraLax daily to manage symptoms. - Reinforced lifestyle modifications to promote regularity: -higher fiber diet, examples provided -adequate hydration with water -150 minutes of moderate intensity exercise per week Plan Follow-up after imaging or sooner as needed Time: I spent a total of 35 minutes on the date of encounter which includes: Preparing to see the patient (reviewed previous documentation, test results and medical history) Performing a medically appropriate exam and/or evaluation Ordering medications, tests, and procedures Documenting clinical information in the health record Orders: Orders CT enterography Today K29.70 - Gastritis, unspecified, without bleeding [place] upper GI small bowel Today K29.70 - Gastritis, unspecified, without bleeding Medications: New omeprazole Take one tablet twice daily 20 mg PO BID 180 caps 0RF Coding Level of Care Code Established Pt Est Pt Level 4 (15434) Patient Type Established Diagnoses Gastritis determined by endoscopy K29.70 Anemia, unspecified type D64.9 Anemia type: unspecified type Polyp of ascending colon, unspecified type K63.5 Colon polyp type: unspecified Colon location: ascending Constipation, unspecified constipation type K59.00 Constipation type: unspecified constipation type
[2025-05-14 13:02] VITALS: BP 112/58; PULSE 71; BMI 23.2
== END 2025-05-14 13:50 | disposition home or self-care (01) ==
LOC: HO.HGI 12:47
PROVIDERS: PCP Internal Medicine Geriatric Medicine; Visit Provider Nurse Practitioner Family
DX: K29.70 Gastritis, unspecified, without bleeding (principal); D64.9 Anemia, unspecified; K63.5 Polyp of colon; K59.00 Constipation, unspecified
CPT/HCPCS: 99214

== ENCOUNTER → 2025-05-14 12:47 | Outpatient (BNVA) | payer MEDICAID, SELFPAY | PROVIDERS: PCP Internal Medicine Geriatric Medicine; Visit Provider Nurse Practitioner Family | DX: K29.70 Gastritis, unspecified, without bleeding (principal); D64.9 Anemia, unspecified; K63.5 Polyp of colon; K59.00 Constipation, unspecified | CPT/HCPCS: 99212 ==